=== PATIENT | male | born 1955 | race Caucasian/White ===

== ENCOUNTER 2017-01-20 22:47 | Inpatient (IN) | payer MEDICARE, OTHER ==
[2017-01-20] VITALS (8 sets, daily range): BP systolic 170–232; BP diastolic 92–127; PULSE 92–107; RESP 15–22; TEMP 98.6; O2SAT 99–100
[~2017-01-20] VITALS: Ht 185.4 cm; Wt 111.5 kg
[2017-01-20] MEDS ORDERED: MIDAZOLAM 100 MG/100 ML INJ 100 ML ONE (23:12)
[2017-01-20 23:13] LABS: BLOOD GAS BASE EXCESS 0.4 mmol/L (-2-2); BLOOD GAS CARBOXYHEMOGLOBIN 0.7 % (0-4); BLOOD GAS HCO3 29 mmol/L (22-26); BLOOD GAS METHEMOGLOBIN 0.7 % (0-2); BLOOD GAS O2 HGB SATURATION 95 % (90-100); BLOOD GAS OXYGEN CONTENT 22.2 Vol % (12.0-20.0); BLOOD GAS PCO2 92 mmHg (38-42); BLOOD GAS PO2 105 mmHG (61-120); BLOOD GAS TOTAL HGB 16.6 G/DL (12.0-16.0); CRITICAL VALUE YES; FIO2 100 %; LITER FLOW 15 L/M; OXYGEN DEVICE ABMU; TEMP CORR TO 98.6
[2017-01-20 23:14] LABS: DRAW SITE RT RADIAL; NUMBER OF ARTERIAL PUNCTURES 1; STAT YES; ULNAR PULSE PRESENT
[2017-01-20] MEDS: MIDAZOLAM 100 MG/100 ML INJ 100 ML IV PRN (23:15)
[2017-01-20] MEDS ORDERED: ETOMIDATE 20 MG/10 ML VIAL IVP ONE (23:15)
[2017-01-20] MEDS ORDERED: SUCCINYLCHOLINE CHLORIDE 200 MG/10 ML VIAL IV PUSH ONE (23:15)
[2017-01-20] MEDS ORDERED: SODIUM CHLORIDE 0.9% FLUSH 10 ML FLUSH IVF PRN (23:15)
--- NOTE | 2017-01-20 23:15 | PD ---
HPI Chief Complaint: Seizure Time Seen by Provider: 23:01 Travel History International Travel<30 days: No Contact w/Intl Traveler<30days: No Traveled to known affect area: No History of Present Illness HPI This is a 61-year-old male with a history of CVAs with residual left sided weakness, seizure disorder, encephalopathy, gastroesophageal reflux, hyperlipidemia, type 2 diabetes, obesity, who presents from the alf after he reportedly had a witnessed seizure of greater than 30 minutes. According to the paramedics they were called to the facility of [facility]. Patient reportedly had a seizure that was witnessed at 30 minutes. Report was the gave him 2 mg of IM Ativan. When paramedics arrived he was still seizing and they gave him a further dose of 2 mg of lorazepam. Patient became apneic per paramedics en route. When patient arrived he was being [id number] ventilated. An emergent blood gas was obtained which showed a pH of 7.12 and a PCO2 of 97. Decision was made to intubate the patient emergently at this time. [facility] Social History Tobacco Use: No (unknown) Allergies-Medications (Allergen,Severity, Reaction): Coded Allergies: erythromycin base (Verified Allergy, Unknown, 01/20/17) Reported Meds & Prescriptions Reported Meds & Active Scripts Active Reported Eliquis (Apixaban) 5 Mg Tab 5 Mg PO BID Atorvastatin (Atorvastatin Calcium) 80 Mg Tab 80 Mg PO HS Citalopram (Citalopram Hydrobromide) 40 Mg Tab 40 Mg PO HS B12 (Cyanocobalamin) 1,000 Mcg Tab DAILY Divalproex ER (Divalproex Sodium) 250 Mg Cassidy 750 Mg PO BID Donepezil 10 Mg Tab 10 Mg PO HS Duoneb (Ipratropium-Albuterol Neb) 0.5-2.5 Mg/3 Ml Neb 1 Nebule INH Q8HR NEB Klonopin (Clonazepam) 0.5 Mg Tab 0.25 Mg PO HS Levetiracetam 750 Mg Tab 750 Mg PO BID Metformin (Metformin HCl) 1,000 Mg Tab 1,000 Mg PO BIDPC Miralax Powder (Polyethylene Glycol 3350 Powder) 17 Gm Powd 17 Gm PO DAILY Mix and dissolve one measuring cap-ful (17 grams) in water or juice. Questran (Cholestyramine) 4 Gm/Pkt Powd 8 Gm PO DAILY 1 packet contains 4gm of cholestyramine. Senna-Tabs (Sennosides) 8.6 Mg Tab 17.2 Mg PO DAILY Tylenol (Acetaminophen) 325 Mg Tab 650 Mg PO Q4H PRN Vitamin D3 (Cholecalciferol) 50,000 Unit Cap 50,000 Units PO Q7D Lisinopril 20 Mg Tab 20 Mg PO DAILY Metoprolol Tartrate 100 Mg Tab 100 Mg PO BID Loperamide (Loperamide HCl) 2 Mg Cap 2 Mg PO DIRECTED PRN One capsule after each loose stool. Not to exceed 8 capsules per day. Multi-Vitamin Daily (Multiple Vitamin) 1 Tab Tab 1 Tab PO DAILY Magnesium 400 Mg Tab 400 Mg PO DAILY Review of Systems ROS Limitations: Clinical Condition (unable to obtain review of systems secondary patient's altered mental status.) Except as stated in HPI: all other systems reviewed are Neg Physical Exam Narrative GENERAL: Well-developed well-nourished male in no acute respiratory distress. The patient was being aej-qpycl-yijm ventilated by the paramedics. She had a GCS of 4. SKIN: Focused skin assessment warm/dry. HEAD: Atraumatic. Normocephalic. EYES: Pupils equal bilaterally.. No scleral icterus. No injection or drainage. ENT: No nasal bleeding or discharge. Mucous membranes pink and moist. NECK: Trachea midline. No JVD. CARDIOVASCULAR: Tachycardic with a rate of 104.. No murmur appreciated. RESPIRATORY: No accessory muscle use. Coarse rhonchi in the lower lung rogers. GASTROINTESTINAL: Abdomen soft, non-tender, nondistended. Obese. MUSCULOSKELETAL: No obvious deformities. No clubbing. No cyanosis. No edema. Chronic venous stasis changes bilateral lower extremity is. NEUROLOGICAL: Unconscious. Not following commands. Report was he had residual left sided deficit secondary to old stroke. Data Data Last Documented VS Vital Signs Date Time Temp Pulse Resp B/P (MAP) Pulse Ox O2 Delivery O2 Flow Rate FiO2 01/21/17 01:22 100 100 01/21/17 01:12 110 176/105 (128) Ventilator 01/21/17 01:01 16 01/20/17 23:41 98.6 Orders Orders Chest, Single Ap (01/20/17 23:03) Ecg Monitoring (01/20/17 23:03) Iv Access Insert/Monitor (01/20/17 23:03) Oximetry (01/20/17 23:03) Etomidate Inj (Amidate Inj) (01/20/17 23:15) Succinylcholine Inj (Quelicin Inj) (01/20/17 23:15) Sodium Chloride 0.9% Flush (Ns Flush) (01/20/17 23:15) Electrocardiogram (01/20/17:03) Complete Blood Count With Diff (01/20/17:) Comprehensive Metabolic Panel (01/20/17:) Creatine Kinase (Cpk) (01/20/17:) Ckmb (Isoenzyme) Profile (01/20/17:) Troponin I (01/20/17:) Urinalysis - C+S If Indicated (01/20/17 23:) Ct Brain W/O Iv Contrast(Rout) (01/20/17 23:03) Midazolam 100 Mg/100 Ml Inj (Versed Inj) (01/20/17 23:15) Neurological Rass Scale Q30MX2,Q2HX4,Q4H (01/20/17 23:03) Arterial Blood Gas (Abg) (01/20/17 22:52) Midazolam 100 Mg/100 Ml Inj (Versed Inj) (01/20/17 23:12) Arterial Blood Gas (Abg) (01/20/17 23:51) CKMB (01/20/17 23:20) CKMB% (01/20/17 23:20) Urine Culture (01/20/17 23:30) Blood Culture (01/21/17 01:40) Ceftriaxone Inj (Rocephin Inj) (01/21/17 01:45) Admit Order (Ed Use Only) (01/21/17 01:41) Labs Laboratory Tests Test 01/20/17 22:52 01/20/17 23:20 01/20/17 23:30 01/20/17 23:51 Blood Gas Puncture Site RT RADIAL RT RADIAL Blood Gas Patient Temperature 98.6 98.6 Blood Gas HCO3 29 mmol/L 27 mmol/L Blood Gas Base Excess 0.4 mmol/L 1.1 mmol/L Blood Gas Oxygen Saturation 95 % 94 % Arterial Blood pH 7.12 7.31 Arterial Blood Partial Pressure CO2 92 mmHg 55 mmHg Arterial Blood Partial Pressure O2 105 mmHG 84 mmHG Arterial Blood Oxygen Content 22.2 Vol % 22.3 Vol % Arterial Blood Carboxyhemoglobin 0.7 % 1.1 % Arterial Blood Methemoglobin 0.7 % 0.7 % Blood Gas Hemoglobin 16.6 G/DL 16.8 G/DL Oxygen Delivery Device ABMU VENTILATOR Blood Gas Liter Flow 15 L/M Blood Gas Inspired Oxygen 100 % 100 % White Blood Count 14.5 TH/MM3 Red Blood Count 5.08 MIL/MM3 Hemoglobin 16.1 GM/DL Hematocrit 48.1 % Mean Corpuscular Volume 94.7 FL Mean Corpuscular Hemoglobin 31.7 PG Mean Corpuscular Hemoglobin Concent 33.4 % Red Cell Distribution Width 14.6 % Platelet Count 173 TH/MM3 Mean Platelet Volume 8.2 FL Neutrophils (%) (Auto) 76.7 % Lymphocytes (%) (Auto) 17.3 % Monocytes (%) (Auto) 5.1 % Eosinophils (%) (Auto) 0.5 % Basophils (%) (Auto) 0.4 % Neutrophils # (Auto) 11.1 TH/MM3 Lymphocytes # (Auto) 2.5 TH/MM3 Monocytes # (Auto) 0.7 TH/MM3 Eosinophils # (Auto) 0.1 TH/MM3 Basophils # (Auto) 0.1 TH/MM3 CBC Comment DIFF FINAL Differential Comment Blood Urea Nitrogen 18 MG/DL Creatinine 1.10 MG/DL Random Glucose 172 MG/DL Total Protein 6.5 GM/DL Albumin 3.4 GM/DL Calcium Level 8.8 MG/DL Alkaline Phosphatase 61 U/L Aspartate Amino Transf (AST/SGOT) 26 U/L Alanine Aminotransferase (ALT/SGPT) 36 U/L Total Bilirubin 1.0 MG/DL Sodium Level 145 MEQ/L Potassium Level 3.8 MEQ/L Chloride Level 108 MEQ/L Carbon Dioxide Level 27.1 MEQ/L Anion Gap 10 MEQ/L Estimat Glomerular Filtration Rate 58 ML/MIN Total Creatine Kinase 171 U/L Creatine Kinase MB 2.4 NG/ML Troponin I 0.05 NG/ML Urine Color YELLOW Urine Turbidity CLOUDY Urine pH 6.0 Urine Specific [place] 1.029 Urine Protein 300 mg/dL Urine Glucose (UA) TRACE mg/dL Urine Ketones TRACE mg/dL Urine Occult Blood MOD Urine Nitrite NEG Urine Bilirubin NEG Urine Urobilinogen 2.0 MG/DL Urine Leukocyte Esterase NEG Urine RBC 26 /hpf Urine WBC 21 /hpf Urine Squamous Epithelial Cells 3 /hpf Urine Amorphous Sediment OCC Urine Bacteria MOD /hpf Urine Hyaline Casts 6 /lpf Urine Mucus FEW /lpf Microscopic Urinalysis Comment CULTURE INDICATED Blood Gas Ventilator Setting [id number]/16/550/[id number] [facility] Medical Decision Making Medical Screen Exam Complete: Yes Emergency Medical Condition: Yes Differential Diagnosis Intractable seizure versus intracranial hemorrhage versus metabolic arrangement versus infectious process. Narrative Course This is a 61 her male with a history of dementia, seizure disorder, previous stroke affecting his left side, hypertension, dyslipidemia, who presents here after having a seizure while at the nursing facility. The patient apparently had a greater than 30 minute seizure. Apparently at the alf, they called 911 after they had given him IM Ativan and he continued to seize. When paramedics arrived, they placed an IVP and him and gave him 2 further milligrams of Ativan. When the patient arrived here he was apneic and being bag -valve-mask ventilated. His pH on blood gas was 7.12. His PCO2 was in the 90s. At that time the decision was made to intubate the patient. He was intubated successfully with no complications. Patient was noted to have a UTI. He's been given Rocephin, 1 g I V times one dose. He's had cultures for urine and blood obtained. CT scan shows no evidence of acute abnormality. He' ll be admitted to the intensive care unit. The case is discussed with Dr. Soria , who will admit him to his service. Critical Care Narrative Aggregate critical care time was 45 minutes. Time to perform other separately billable procedures was not included in the critical care time. My time did not include minutes spent treating any other patients simultaneously or on activities that did not directly contribute to the patient's treatment. The services I provided to this patient were to treat and/or prevent clinically significant deterioration that could result in: I provided critical care services requiring my management, as noted below: Chart data review, documentation time, medication orders and management, vital sign assessments/reviewing monitor data, ordering and reviewing lab tests, ordering and interpreting/reviewing x-rays and diagnostic studies, care of the patient and discussion of the patient with the admitting physicians. Procedures Procedure Narrative Intubated emergently: INTUBATION: The patient was put in optimal position for the procedure. Rapid sequence intubation was initiated by me using 20 milligrams of etomidate IV and 100 milligrams of succinylcholine IV. The patient was intubated with a 0.0 cuffed endotracheal tube. Tube placement was confirmed by visualization of the tube and balloon passing through the cords, capnometry and subsequent chest x- ray. Breath sounds were equal and well aerated bilaterally postintubation. No breath sounds over stomach. Patient tolerated procedure well. Diagnosis Primary Impression: Prolonged seizure Additional Impressions: Hypercarbia UTI (urinary tract infection) Hypertension Qualified Codes: I10 - Essential (primary) hypertension Obstructive sleep apnea Dementia Qualified Codes: F03.90 - Unspecified dementia without behavioral disturbance Admitting Information Admitting Physician Requests: Admit Juaquin Borja MD Jan 20, 2017 23:15
[2017-01-20 23:41] LABS: AUTOMATED NEUTROPHIL # 11.1 TH/MM3 (1.8-7.7); BASOPHIL # 0.1 TH/MM3 (0-0.2); BASOPHIL % 0.4 % (0.0-2.0); EOSINOPHIL # 0.1 TH/MM3 (0-0.4); EOSINOPHIL % 0.5 % (0.0-4.0); HEMATOCRIT 48.1 % (39.0-51.0); HEMO FLAGS DIFF FINAL; LYMPH % 17.3 % (9.0-44.0); LYMPHOCYTE # 2.5 TH/MM3 (1.0-4.8); MEAN CELL VOLUME 94.7 FL (80.0-100.0); MEAN CORPUSCULAR HEMOGLOBIN 31.7 PG (27.0-34.0); MEAN CORPUSCULAR HGB CONC 33.4 % (32.0-36.0); MONO % 5.1 % (0.0-8.0); NEUT % 76.7 % (16.0-70.0); PLATELET COUNT 173 TH/MM3 (150-450); RED BLOOD COUNT 5.08 MIL/MM3 (4.50-5.90); RED CELL DISTRIBUTION WIDTH 14.6 % (11.6-17.2); WHITE BLOOD COUNT 14.5 TH/MM3 (4.0-11.0)
--- NOTE | 2017-01-20 23:44 | RADRPT ---
EXAM DATE/TIME: 01/20/2017 23:29 [facility] COMPARISON: No previous studies available for comparison. INDICATIONS : Short of breath. MEDICAL HISTORY : None. SURGICAL HISTORY : CABG. ENCOUNTER: Initial ACUITY: 1 day PAIN SCORE: 0/10 LOCATION: Bilateral chest FINDINGS: A single view of the chest demonstrates the lungs to be symmetrically aerated without evidence of mas s, infiltrate or effusion. The endotracheal tube and nasogastric are both in good position. Numerous sternal wires. The cardiomediastinal contours are unremarkable. Osseous structures are intact. CONCLUSION: Endotracheal tube and nasogastric are both in good position. Lungs are clear. Bill Carter MD on January 20, 2017 at 23:42 Board Certified Radiologist. This report was verified electronically.
[2017-01-20 23:59] LABS: BLOOD GAS BASE EXCESS 1.1 mmol/L (-2-2); BLOOD GAS CARBOXYHEMOGLOBIN 1.1 % (0-4); BLOOD GAS HCO3 27 mmol/L (22-26); BLOOD GAS METHEMOGLOBIN 0.7 % (0-2); BLOOD GAS O2 HGB SATURATION 94 % (90-100); BLOOD GAS OXYGEN CONTENT 22.3 Vol % (12.0-20.0); BLOOD GAS PCO2 55 mmHg (38-42); BLOOD GAS PO2 84 mmHG (61-120); BLOOD GAS TOTAL HGB 16.8 G/DL (12.0-16.0); TEMP CORR TO 98.6
[2017-01-21] VITALS (25 sets, daily range): BP systolic 94–210; BP diastolic 56–117; PULSE 76–114; RESP 15–24; TEMP 98.4–101.6; O2SAT 99–100
[2017-01-21 00:01] LABS: CRITICAL VALUE YES; DRAW SITE RT RADIAL; FIO2 100 %; NUMBER OF ARTERIAL PUNCTURES 1; OXYGEN DEVICE VENTILATOR; STAT YES; ULNAR PULSE PRESENT; VENT SETTINGS AC/16/550/PEEP5
[2017-01-21 00:10] LABS: ALT (GPT) 36 U/L (12-78); ANION GAP 10 MEQ/L (5-15); AST (GOT) 26 U/L (15-37); BICARBONATE 27.1 MEQ/L (21.0-32.0); BLOOD UREA NITROGEN 18 MG/DL (7-18); CHLORIDE 108 MEQ/L (98-107); GLOMERULAR FILTRATION RATE 58 ML/MIN (>89); POTASSIUM 3.8 MEQ/L (3.5-5.1); SODIUM (NA) 145 MEQ/L (136-145)
[2017-01-21 00:14] LABS: ALKALINE PHOSPHATASE 61 U/L (45-117); CREATINE KINASE 171 U/L (39-308)
[2017-01-21 00:15] LABS: BACTERIA, URINE MOD /hpf; BLOOD, URINE MOD (NEG); GLUCOSE,URINE TRACE mg/dL (NEG); HYALINE CAST, URINE 6 /lpf (RARE); KETONE, URINE TRACE mg/dL (NEG); MUCUS URINE FEW /lpf (OCC); NITRITE,URINE NEG (NEG); SQUAMOUS EPITHELIAL CELL URINE 3 /hpf (0-5); URINE COLOR YELLOW (YELLW/STRAW)
[2017-01-21 00:17] LABS: COMMENT (UR) CULTURE INDICATED; CULTURE IF INDICATED CULTURE INDICATED
[2017-01-21 00:27] LABS: CKMB 2.4 NG/ML (0.5-3.6)
[2017-01-21] MEDS ORDERED: METF1000 PO (00:56)
[2017-01-21] MEDS ORDERED: QUES4POW PO (00:56)
[2017-01-21] MEDS ORDERED: METO100T PO (00:56)
[2017-01-21] MEDS ORDERED: DONE10TA7 PO (00:56)
[2017-01-21] MEDS ORDERED: CLON.5 PO (00:56)
[2017-01-21] MEDS ORDERED: IPRASOL INH (00:56)
[2017-01-21] MEDS ORDERED: MAGN400T3 PO (00:56)
[2017-01-21] MEDS ORDERED: SENN8.6T36 PO (00:56)
[2017-01-21] MEDS ORDERED: MIRA3350 PO (00:56)
[2017-01-21] MEDS ORDERED: CYAN1TAB24 (00:56)
[2017-01-21] MEDS ORDERED: LISI-515 PO (00:56)
[2017-01-21] MEDS ORDERED: DIVA250T3 PO (00:56)
[2017-01-21] MEDS ORDERED: TYLE325T PO (00:56)
[2017-01-21] MEDS ORDERED: CHOL1CAP34 PO (00:56)
[2017-01-21] MEDS ORDERED: MULT-65 PO (00:56)
[2017-01-21] MEDS ORDERED: LEVE750T8 PO (00:56)
[2017-01-21] MEDS ORDERED: LOPE2CAP PO (00:56)
[2017-01-21] MEDS ORDERED: APIX5TAB PO (00:59)
[2017-01-21] MEDS ORDERED: CITA40TA4 PO (00:59)
[2017-01-21] MEDS ORDERED: ATOR80TA45 PO (00:59)
--- NOTE | 2017-01-21 01:34 | RADRPT ---
EXAM DATE/TIME: 01/21/2017 01:10 [facility] COMPARISON: No previous studies available for comparison. INDICATIONS : Altered mental status. Possible seizure. RADIATION DOSE: 56.35 CTDIvol (mGy) MEDICAL HISTORY : Non-responsive. SURGICAL HISTORY : Non-responsive. ENCOUNTER: Initial ACUITY: 1 day PAIN SCALE: Non-responsive LOCATION: cranial TECHNIQUE: Multiple contiguous axial images were obtained of the head. Using automated exposure control and adj ustment of the mA and/or kV according to patient size, radiation dose was kept as low as reasonably a chievable to obtain optimal diagnostic quality images. DICOM format image data is available electro nically for review and comparison. FINDINGS: CEREBRUM: There is a mature area of encephalomalacia involving the centrum semiovale region on the right with c ommunication to the ventricular system which is dilated. No evidence of midline shift, mass lesion, hemorrhage or acute infarction. No extra-axial fluid collections are seen. 5 mm hypodensity within t he right thalamus age-indeterminate lacunar infarct (image 14). POSTERIOR FOSSA: The cerebellum and brainstem are intact. The 4th ventricle is midline. The cerebellopontine angle i s unremarkable. EXTRACRANIAL: The visualized portion of the orbits is intact. SKULL: The calvaria is intact. No evidence of skull fracture. CONCLUSION: Old stroke in the centrum semiovale region on the right. Questionable small probably chronic stroke i n the right thalamus. No acute hemorrhage. Bill Carter MD on January 21, 2017 at 1:29 Board Certified Radiologist. This report was verified electronically.
[2017-01-21] MEDS ORDERED: cefTRIAXone INJ 1,000 MG in SODIUM CHLORIDE 0.9% INJ 100 ML IV ONE (01:45)
--- NOTE | 2017-01-21 02:12 | HHI.HP ---
[facility] Service Critical Care Medicine Primary Care Physician Unknown Admission Diagnosis Prolonged seizure, hypercarbia, uti, Diagnosis: (1) Acute respiratory failure Diagnosis: Principal (2) Constipation Diagnosis: Principal (3) Dementia Diagnosis: Secondary (4) Obstructive sleep apnea Diagnosis: Principal (5) Dyslipidemia Diagnosis: Secondary (6) Hx of thrombosis of lower extremity Diagnosis: Secondary (7) Cystitis Diagnosis: Secondary (8) Hyperglycemia Diagnosis: Secondary (9) Leukocytosis Diagnosis: Principal (10) Hypertension Diagnosis: Secondary (11) BMI 37.0-37.9, adult Diagnosis: Principal (12) Depression Diagnosis: Secondary (13) Chronic anticoagulation Diagnosis: Principal (14) Seizure disorder Diagnosis: Principal (15) SIRS (systemic inflammatory response syndrome) Diagnosis: Principal Chief Complaint: Patient was found seizing greater than 30 minutes the LTAC, located within [facility] Travel History International Travel<30 Days: No Contact w/Intl Traveler <30 Da: No Traveled to Known Affected Are: No Sepsis Criteria SIRS Criteria (2 or more): WBC > 83204, < 4000 or > 10% bands History of Present Illness 61-year-old male. Date of admission 01/21/2017. 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 [address] Borja, they were called to the facility of [facility]. Patient reportedly had a seizure that was witnessed at 30 minutes. Report was the gave him 2 mg of IM lorazepam. When paramedics arrived he was still seizing and they gave him a further dose of 2 mg of lorazepam. Patient became apneic per paramedics en route. When patient arrived he was being [id number] ventilated. An emergent blood gas was obtained which showed a pH of 7.12 and a PCO2 of 97. Decision was made to intubate the patient emergently at [facility] after receiving 20 g, refill 100 mg succinylcholine Laboratories revealed elevated white blood cell count 14,000. Glucose of 173. CT brain revealed old right centrum semiovale right thalamic CVA. Chest x-ray revealed no acute findings. Patient is placed on midazolam drip currently at 10 mg an hour. Patient has a gag. Patient's eyes are currently moving horizontally with a rightward gaze preference. Minimal withdrawal to pain. Review of Systems ROS Limitations: Intubated Past Family Social History Allergies: Coded Allergies: erythromycin base (Verified Allergy, Unknown, 01/20/17) Past Medical History Seizure disorder NOS Elevated BMI Depression Chronic Apixaban use Hypertension Dyslipidemia Dementia obstructive sleep apnea requiring CPAP History of lower extremity arterial thrombus Chronic constipation Past Surgical History Not documented. Unknown Reported Medications Citalopram 40 mg by mouth daily Clonazepam 0.25 mg by mouth at bedtime Apixaban 5 mg by mouth twice a day Metformin 1000 mg by mouth twice a day Vitamin B12 1000 mcg by mouth daily Lisinopril 20 mg by mouth twice a day Metoprolol 100 mg by mouth twice a day Levetiracetam 750 mg by mouth every 12 hours Divalproex 750 mg by mouth twice a day Atorvastatin 80 mg by mouth daily Donezepil 10 mg by mouth daily Albuterol/ipratropium aerosols every 8 hours Magnesium oxide 4 mg by mouth daily Questran 8 g by mouth daily Active Ordered Medications Reviewed in EMR Family History Mother and father is unknown/not defined. Unable to contact Ashley/healthcare proxy Social History Unknown if any alcohol tobacco or IV drug use Physical Exam Vital Signs Vital Signs Date Time Temp Pulse Resp B/P (MAP) Pulse Ox O2 Delivery O2 Flow Rate FiO2 01/21/17 01:22 100 100 01/21/17 01:12 100 100 01/21/17 01:12 110 176/105 (128) 100 Ventilator 100 01/21/17 01:01 96 16 210/117 (148) 100 Ventilator 100 01/20/17 23:48 92 16 178/94 (122) 100 Ventilator 100 01/20/17 23:46 100 01/20/17 23:41 98.6 106 17 232/127 (162) 100 Ventilator 100 01/20/17 23:35 93 17 185/102 (129) 100 Ventilator 100 01/20/17 23:24 92 17 170/97 (121) 100 Ventilator 100 01/20/17 23:07 96 17 204/113 (143) 100 Ventilator 100 01/20/17 23:05 100 100 01/20/17 23:02 99 15 189/96 (127) 100 Ventilator 01/20/17 22:59 100 01/20/17 22:49 107 22 179/92 (121) 99 Physical Exam GENERAL: This is a 61-year-old male, critically ill currently orotracheally intubated SKIN: Warm and dry. Chronic venous stasis bilateral lower extremities HEAD: Atraumatic. Normocephalic. EYES: Pupils equal and round. No scleral icterus. No injection or drainage. ENT: No nasal bleeding or discharge. Mucous membranes pink and moist. NECK: Trachea midline. No JVD. CARDIOVASCULAR: Regular rate and rhythm. S1, S2. No S4. Without murmur. Midsternal healed scar. RESPIRATORY: Diminished breath sounds throughout. Positive coarse rhonchi appreciated anteriorly posteriorly. Positive and extremity wheezes GASTROINTESTINAL: Abdomen obese, soft. Hypoactive bowel sounds are appreciated. MUSCULOSKELETAL: Extremities with 1+ bilateral lower extremity edema.. NEUROLOGICAL: Currently biting on 2. Pupils are about 2 mm bilaterally and minimally reactive. Patient eye gaze horizontally with some nystagmus. Positive blink. Positive gag. Very difficult to elicit withdrawal to noxious stimuli bilateral upper and lower extremities. Laboratory Laboratory Tests Test 01/20/17 22:52 01/20/17 23:20 01/20/17 23:30 01/20/17 23:51 Blood Gas Puncture Site RT RADIAL RT RADIAL Blood Gas Patient Temperature 98.6 98.6 Blood Gas HCO3 29 27 Blood Gas Base Excess 0.4 1.1 Blood Gas Oxygen Saturation 95 94 Arterial Blood pH 7.12 7.31 Arterial Blood Partial Pressure CO2 92 55 Arterial Blood Partial Pressure O2 105 84 Arterial Blood Oxygen Content 22.2 22.3 Arterial Blood Carboxyhemoglobin 0.7 1.1 Arterial Blood Methemoglobin 0.7 0.7 Blood Gas Hemoglobin 16.6 16.8 Oxygen Delivery Device ABMU VENTILATOR Blood Gas Liter Flow 15 Blood Gas Inspired Oxygen 100 100 White Blood Count 14.5 Red Blood Count 5.08 Hemoglobin 16.1 Hematocrit 48.1 Mean Corpuscular Volume 94.7 Mean Corpuscular Hemoglobin 31.7 Mean Corpuscular Hemoglobin Concent 33.4 Red Cell Distribution Width 14.6 Platelet Count 173 Mean Platelet Volume 8.2 Neutrophils (%) (Auto) 76.7 Lymphocytes (%) (Auto) 17.3 Monocytes (%) (Auto) 5.1 Eosinophils (%) (Auto) 0.5 Basophils (%) (Auto) 0.4 Neutrophils # (Auto) 11.1 Lymphocytes # (Auto) 2.5 Monocytes # (Auto) 0.7 Eosinophils # (Auto) 0.1 Basophils # (Auto) 0.1 CBC Comment DIFF FINAL Differential Comment Blood Urea Nitrogen 18 Creatinine 1.10 Random Glucose 172 Total Protein 6.5 Albumin 3.4 Calcium Level 8.8 Alkaline Phosphatase 61 Aspartate Amino Transf (AST/SGOT) 26 Alanine Aminotransferase (ALT/SGPT) 36 Total Bilirubin 1.0 Sodium Level 145 Potassium Level 3.8 Chloride Level 108 Carbon Dioxide Level 27.1 Anion Gap 10 Estimat Glomerular Filtration Rate 58 Total Creatine Kinase 171 Creatine Kinase MB 2.4 Troponin I 0.05 Urine Color YELLOW Urine Turbidity CLOUDY Urine pH 6.0 Urine Specific [place] 1.029 Urine Protein 300 Urine Glucose (UA) TRACE Urine Ketones TRACE Urine Occult Blood MOD Urine Nitrite NEG Urine Bilirubin NEG Urine Urobilinogen 2.0 Urine Leukocyte Esterase NEG Urine RBC 26 Urine WBC 21 Urine Squamous Epithelial Cells 3 Urine Amorphous Sediment OCC Urine Bacteria MOD Urine Hyaline Casts 6 Urine Mucus FEW Microscopic Urinalysis Comment CULTURE INDICATED Blood Gas Ventilator Setting AC/16/550/PEEP5 Date/Time Source Procedure Growth Status 01/20/17 23:30 Urine Clean Catch Urine Culture Pending Received Result Diagram: 01/20/17231901/20/172319 Imaging Last Impressions Head CT 01/20/172302 Signed Impressions: Service Date/Time: Saturday, January 21, 2017 01:10 - CONCLUSION: Old stroke in the centrum semiovale region on the right. Questionable small probably chronic stroke in the right thalamus. No acute hemorrhage. Bill Carter MD Chest X-Ray 01/20/172302 Signed Impressions: Service Date/Time: Friday, January 20, 2017 23:29 - CONCLUSION: Endotracheal tube and nasogastric are both in good position. Lungs are clear. Bill Carter MD Caprini VTE Risk Assessment Caprini VTE Risk Assessment: Mod/High Risk (score >= 2) VTE Pharm Contraindication: Intracranial lesions Caprini Risk Assessment Model Point Value = 1 Point Value = 2 Point Value = 3 Point Value = 5 Age 41-60 Minor surgery BMI > 25 kg/m2 Swollen legs Varicose veins or History of unexplained or recurrent spontaneous Oral contraceptives or hormone replacement Sepsis (< 1 month) Serious lung disease, including pneumonia (< 1 month) Abnormal pulmonary function Acute myocardial infarction Congestive heart failure (< 1 month) History of inflammatory bowel disease Medical patient at bed rest Age 61-74 Arthroscopic surgery Major open surgery (> 45 min) Laparoscopic surgery (> 45 min) Malignancy Confined to bed (> 72 hours) Immobilizing plaster cast Central venous access Age >= 75 History of VTE Family history of VTE Factor V Leiden Prothrombin [id number] Lupus anticoagulant Anticardiolipin antibodies Elevated serum homocysteine Heparin-induced thrombocytopenia Other congenital or acquired thrombophilia Stroke (< 1 month) Elective arthroplasty Hip, pelvis, or leg fracture Acute spinal cord injury (< 1 month) Prophylaxis Regimen Total Risk Factor Score Risk Level Prophylaxis Regimen 0-1 Low Early ambulation 2 Moderate Order ONE of the following: *Sequential Compression Device (SCD) *Heparin 5000 units SQ BID 3-4 Higher Order ONE of the following medications: *Heparin 5000 units SQ TID *Enoxaparin/Lovenox 40 mg SQ daily (WT < 150 kg, CrCl > 30 mL/min) *Enoxaparin/Lovenox 30 mg SQ daily (WT < 150 kg, CrCl > 10-29 mL/min) *Enoxaparin/Lovenox 30 mg SQ BID (WT < 150 kg, CrCl > 30 mL/min) AND/OR *Sequential Compression Device (SCD) 5 or more Highest Order ONE of the following medications: *Heparin 5000 units SQ TID (Preferred with Epidurals) *Enoxaparin/Lovenox 40 mg SQ daily (WT < 150 kg, CrCl > 30 mL/min) *Enoxaparin/Lovenox 30 mg SQ daily (WT < 150 kg, CrCl > 10-29 mL/min) *Enoxaparin/Lovenox 30 mg SQ BID (WT < 150 kg, CrCl > 30 mL/min) AND *Sequential Compression Device (SCD) Assessment and Plan Assessment and Plan Neuro/Psych: Seizure disorder Depression History of encephalopathy Prior history of CVA right centrum semiovale, right thalamus Patient is currently midazolam, propofol and fentanyl drips for sedation/ analgesia while intubated Goal of RASS -[address] brain 01/20 revealed remote right centrum semiovale and right thalamic CVA MRI brain ordered EEG ordered Carotid Dopplers ordered Patient at nursing was on levetiracetam 750 mg twice a day and divalproex 750 mg twice a day. We'll place on levetiracetam 1000 mg IV twice a day and divalproex 500 mg IV every 8 hours. Levetiracetam and valproic acid levels pending TSH screening urine tox screen, blood cultures 2 are pending Currently holding citalopram 40 mg daily and Klonopin 0.25 mg at night Currently holding benazepril 10 mg daily Currently vitamin B12 1000 g by mouth daily CV: Hypertension Dyslipidemia Patient is currently normal saline at 84 cc an hour. Resume metoprolol 100 milligrams by mouth twice a day. Currently holding lisinopril 20 mg by mouth twice a day Currently holding atorvastatin 80 mg by mouth at bedtime for dyslipidemia Resp: Acute respiratory failure History of MICHELLE on BiPAP 01/10 at night PRVC 18/600///50 Ventilator bundle Albuterol/ipratropium aerosols every 4 hours with albuterol aerosols every 2 hours as needed for dyspnea Chest x-ray admission revealed no acute pulmonary cardiac findings GI: Morbid obesity Constipation Weight loss will be encouraged. Lansoprazole for GI prophylaxis Docusate sodium/senna twice a day for bowel regimen Holding Questran 8 g daily : Dexter catheter has been placed for accurate I's and O's in a critically ill patient Endo: Diurese mellitus Hyperglycemia Holding metformin 1000 mg by mouth twice a day Sliding-scale insulin with Novulin R with Accu-Cheks every 4 hours to maintain euglycemia/low regimen Renal: Creatinine currently within normal limits Monitor urine output Accurate I's and O's Heme: Leukocytosis Apixaban use History of lower extremity arterial thrombus question chace Currently holding Apixaban until after MRI brain. Likely resume at that time Follow CBC and coags in a.m. Does not meet transfusion thresholds at this time ID: Cystitis Currently on ceftriaxone 1 g IV daily Follow-up on blood cultures/urine culture FEN: Replace electrolytes as clinically indicated MSK: PT evaluate and treat Access - Utilize peripheral IV. Central line if indicated Prophylaxis - GI - lansoprazole - DVT -SCDs/holding pharmacological prophylaxis until after brain MRI performed Critical Care: The total critical care time was 45 minutes. Time to perform other separately billable procedures was not included in the critical care time. Code Status Full code Discussed Condition With Dr. Borja. Care plan discussed and all questions answered. Problem Qualifiers (1) Acute respiratory failure: Qualified Codes: J96.01 - Acute respiratory failure with hypoxia; J96.02 - Acute respiratory failure with hypercapnia (2) Constipation: Qualified Codes: K59.00 - Constipation, unspecified (3) Dementia: Qualified Codes: F03.90 - Unspecified dementia without behavioral disturbance (4) Leukocytosis: Qualified Codes: D72.829 - Elevated white blood cell count, unspecified (5) Hypertension: Qualified Codes: I10 - Essential (primary) hypertension (6) Depression: Qualified Codes: F32.9 - Major depressive disorder, single episode, unspecified Mayco Soria MD Jan 21, 2017 02:12
[2017-01-21] MEDS ORDERED: SENNOSIDES 8.6 MG TAB PO PRN (02:30)
[2017-01-21] MEDS ORDERED: CHLORHEXIDINE GLUCONATE 2 % 1 PACK (2 CLOTHS) TOP PRN (02:30)
[2017-01-21] MEDS ORDERED: SODIUM CHLORIDE 0.9% FLUSH 10 ML FLUSH IV FLUSH PRN (02:30)
[2017-01-21] MEDS ORDERED: ONDANSETRON HCL 4 MG/2 ML VIAL IV PUSH PRN (02:30)
[2017-01-21] MEDS ORDERED: PROPOFOL 1000 MG/100 ML INJ 100 ML IV PRN ×2 (02:30→14:45)
[2017-01-21] MEDS ORDERED: GLUCAGON 1 MG/ML VIAL IM PRN (02:30)
[2017-01-21] MEDS ORDERED: GLUCAGON 1 MG/ML VIAL OTHER PRN (02:30)
[2017-01-21] MEDS ORDERED: fentaNYL DRIP 250 ML IV PRN (02:30)
[2017-01-21] MEDS ORDERED: MAGNESIUM HYDROXIDE SUSP 30 ML CUP PO PRN (02:30)
[2017-01-21] MEDS ORDERED: RESP: ALBUTEROL 2.5 MG/3 ML NEB (PRN) INH (02:30)
[2017-01-21] MEDS ORDERED: DEXTROSE 50% IN WATER 50 ML VIAL(D50) IV PUSH PRN (02:30)
[2017-01-21] MEDS ORDERED: BISACODYL 10 MG SUPP RECTAL PRN (02:30)
[2017-01-21] MEDS ORDERED: MISCELLANEOUS NURSING INFORMATION XX SCH (02:30)
[2017-01-21] MEDS ORDERED: ACETAMINOPHEN 325 MG TAB PO PRN (02:30)
[2017-01-21] MEDS ORDERED: LABETALOL HCL 100 MG/20 ML VIAL IV PUSH PRN (02:30)
[2017-01-21] MEDS ORDERED: LACTULOSE SYRUP 20 GM/30 ML CUP PO PRN (02:30)
[2017-01-21] MEDS ORDERED: levETIRAcetam 1000 MG INJ 100 ML IV ONE (03:00)
[2017-01-21 03:20] LABS: APTT (PATIENT) 23.8 SEC (24.3-30.1); INTERNATIONAL NORMALIZED RATIO 1.1 RATIO; PROTHROMBIN TIME - PATIENT 11.8 SEC (9.8-11.6)
[2017-01-21] MEDS: RESP: ALBUTEROL 2.5 MG/IPRATROPIUM 0.5 MG NEB (SCH) INH ×4 (03:21→19:30)
[2017-01-21] MEDS: SODIUM CHLOR 0.9% 1000 ML INJ 1,000 ML IV SCH ×2 (03:41→17:40)
[2017-01-21] MEDS: CHLORHEXIDINE GLUCONATE 2 % 1 PACK (2 CLOTHS) TOP SCH (04:00)
[2017-01-21] MEDS: INSULIN NovoLIN REGULAR SUPPLEMENTAL SCALE SQ SCH ×5 (04:00→20:00)
[2017-01-21 04:05] LABS: HDL CHOLESTEROL 72.9 MG/DL (40.0-60.0); MAGNESIUM 1.4 MG/DL (1.5-2.5)
[2017-01-21] MEDS ORDERED: SODIUM CHLOR 0.45% 1000 ML INJ 1,000 ML IV ONE (04:15)
[2017-01-21] MEDS ORDERED: ACETAMINOPHEN 1000 MG/100 ML 100 ML IV ONE (04:30)
[2017-01-21 05:04] LABS: BLOOD GAS BASE EXCESS -1.1 mmol/L (-2-2); BLOOD GAS CARBOXYHEMOGLOBIN 0.8 % (0-4); BLOOD GAS HCO3 23 mmol/L (22-26); BLOOD GAS METHEMOGLOBIN 1.3 % (0-2); BLOOD GAS O2 HGB SATURATION 97 % (90-100); BLOOD GAS OXYGEN CONTENT 22.5 Vol % (12.0-20.0); BLOOD GAS PCO2 36 mmHg (38-42); BLOOD GAS PO2 226 mmHg (61-120); BLOOD GAS TOTAL HGB 16.2 G/DL (12.0-16.0); CRITICAL VALUE NO; DRAW SITE RT RADIAL; FIO2 60 %; NUMBER OF ARTERIAL PUNCTURES 1; OXYGEN DEVICE VENTILATOR; STAT NO; TEMP CORR TO 98.6; ULNAR PULSE PRESENT
[2017-01-21] MEDS ORDERED: VALPROATE INJ 500 MG in SODIUM CHLORIDE 0.9% INJ 100 ML IV SCH (06:00)
[2017-01-21] MEDS ORDERED: MAGNESIUM SULFATE INJ 4 GM in SODIUM CHLORIDE 0.9% INJ 92 ML IV PRN (07:15)
[2017-01-21] MEDS ORDERED: POTASSIUM CHLOR 40 MEQ PREMIX 100 ML IV PRN ×2 (07:15)
[2017-01-21] MEDS ORDERED: POTASSIUM CHLOR 20 MEQ PREMIX 100 ML IV PRN (07:15)
[2017-01-21] MEDS ORDERED: POTASSIUM PHOSPHATE INJ 30 MMOL in SODIUM CHLOR 0.9% 250 ML INJ 250 ML IV PRN (07:15)
[2017-01-21] MEDS ORDERED: MAGNESIUM SULFATE INJ 2 GM in SODIUM CHLORIDE 0.9% INJ 96 ML IV PRN (07:15)
[2017-01-21] MEDS ORDERED: MAGNESIUM OXIDE 400 MG TAB PO PRN (07:15)
[2017-01-21] MEDS ORDERED: POTASSIUM PHOSPHATE MONOBASIC 500 MG TAB PO PRN (07:15)
[2017-01-21] MEDS ORDERED: POTASSIUM PHOSPHATE MONOBASIC 500 MG TAB PO/TUBE PRN (07:15)
[2017-01-21] MEDS ORDERED: SODIUM PHOSPHATE INJ 30 MMOL in SODIUM CHLOR 0.9% 250 ML INJ 240 ML IV PRN (07:15)
[2017-01-21] MEDS ORDERED: POTASSIUM CHLORIDE 25 MEQ EFFERVESCENT TAB PO PRN (07:15)
--- NOTE | 2017-01-21 08:26 | RADRPT ---
EXAM DATE/TIME: 01/21/2017 07:48 [place] COMPARISON: No previous studies available for comparison. INDICATIONS : Cerebrovascular accident. MEDICAL HISTORY : Dementia. Hypercholesterolemia. Hypertension. Toxic encephalopathy. Left sided hemiplegia. Seizures. Embolism and thrombosis of lower extremity. Sleep apnea. Diabetes. GERD. SURGICAL HISTORY : Unable to obtain. ENCOUNTER: Initial ACUITY: 1 day PAIN SCORE: Nonresponsive. LOCATION: Bilateral neck PEAK SYSTOLIC VELOCITIES (cm/sec): ICA/CCA RATIO: Right: 1.0 Left: 1.1 ICA: Right: 124 Left: 111 CCA: Right: 121 Left: 105 ECA: Right: 117 Left: 139 VERTEBRAL: Right: 48 antegrade Left: 54 antegrade Elevated flow velocities and ICA/CCA ratios have been found to correlate with increased degrees of vessel stenosis, calculated as percentage of diameter relative to a normal segment of distal ICA/CCA FINDINGS: RIGHT CAROTID: No significant stenosis is visualized. The waveforms are within normal limits. LEFT CAROTID: No significant stenosis is visualized. The waveforms are within normal limits. VERTEBRAL ARTERIES: Antegrade flow is seen in both vertebral arteries. MISCELLANEOUS: None. CONCLUSION: 1. Minimal atherosclerotic plaque without a hemodynamically significant stenosis involving either car otid artery. 2. Antegrade flow involving both vertebral arteries. Rafa Arnold Jr., MD on January 21, 2017 at 8:22 Board Certified Radiologist. This report was verified electronically.
[2017-01-21] MEDS: DOCUSATE SODIUM 50 MG/SENNA 8.6 MG TAB PO SCH ×2 (08:30→21:37)
[2017-01-21] MEDS: METOPROLOL TARTRATE 100 MG TAB PO SCH ×2 (08:30→21:37)
[2017-01-21] MEDS: LANSOPRAZOLE SOLUTAB 30 MG TAB G-TUBE SCH (08:30)
[2017-01-21] MEDS: levETIRAcetam 1000 MG INJ 100 ML IV SCH ×2 (08:30→21:39)
[2017-01-21] MEDS: CHLORHEXIDINE 0.12% (ORAL KIT) 15 ML CUP MT SCH ×2 (08:31→21:38)
[2017-01-21] MEDS: ARTIFICIAL TEARS OPTH SOLN 15 ML BTL EACH EYE SCH ×3 (08:32→18:00)
[2017-01-21] MEDS: SODIUM CHLORIDE 0.9% FLUSH 10 ML FLUSH IV FLUSH SCH ×2 (08:32→21:39)
[2017-01-21 08:59] LABS: AUTOMATED NEUTROPHIL # 6.9 TH/MM3 (1.8-7.7); BASOPHIL % 0.1 % (0.0-2.0); HEMATOCRIT 46.7 % (39.0-51.0); HEMO FLAGS DIFF FINAL; LYMPH % 10.2 % (9.0-44.0); LYMPHOCYTE # 0.9 TH/MM3 (1.0-4.8); MEAN CELL VOLUME 93.8 FL (80.0-100.0); MEAN CORPUSCULAR HEMOGLOBIN 31.9 PG (27.0-34.0); MONO % 11.6 % (0.0-8.0); NEUT % 78.1 % (16.0-70.0); PLATELET COUNT 123 TH/MM3 (150-450); RED BLOOD COUNT 4.98 MIL/MM3 (4.50-5.90); RED CELL DISTRIBUTION WIDTH 14.9 % (11.6-17.2); WHITE BLOOD COUNT 8.9 TH/MM3 (4.0-11.0)
--- NOTE | 2017-01-21 09:20 | PD.CONS ---
History of Present Illness Service Neurology Consult Requested By [facility] Reason for Consult sz Primary Care Physician Unknown History of Present Illness 61-year-old m admitted to icu for recurrent sz's, resp failure. pt is intubated and sedated. no hx available/obtainable from pt 2/ mental status. chart reviewed. hx of stroke, sz's. on keppra/depakate. lives in a [place] [facility] after stroke. hx of baseline confusion. depakote level 36. keppra level pending Review of Systems ROS Limitations: Intubated Past Family Social History Allergies: Coded Allergies: erythromycin base (Verified Allergy, Unknown, 01/20/17) Past Medical History Seizure disorder NOS Elevated BMI Depression Chronic Apixaban use Hypertension Dyslipidemia Dementia obstructive sleep apnea requiring CPAP History of lower extremity arterial thrombus Chronic constipation Past Surgical History Not documented. Unknown Reported Medications Citalopram 40 mg by mouth daily Clonazepam 0.25 mg by mouth at bedtime Apixaban 5 mg by mouth twice a day Metformin 1000 mg by mouth twice a day Vitamin B12 1000 mcg by mouth daily Lisinopril 20 mg by mouth twice a day Metoprolol 100 mg by mouth twice a day Levetiracetam 750 mg by mouth every 12 hours Divalproex 750 mg by mouth twice a day Atorvastatin 80 mg by mouth daily Donezepil 10 mg by mouth daily Albuterol/ipratropium aerosols every 8 hours Magnesium oxide 4 mg by mouth daily Questran 8 g by mouth daily Active Ordered Medications Reviewed in EMR Family History not available Social History Unknown if any alcohol tobacco or IV drug use Review of Systems All other ROS: ROS reviewed as documented in chart Past Family Social History Allergies: Coded Allergies: erythromycin base (Verified Allergy, Unknown, 01/20/17) Active Ordered Medications Current Medications Medications (Trade) Dose Ordered Sig/Judith Route Start Time Stop Time Status Last Admin (Peridex 0.12% Liq) 15 ml BID@08,20 MT 01/21/17 08:00 01/21/17 08:31 Propofol 100 ml @ 3.12 mls/hr TITRATE PRN IV 01/21/17 02:30 Midazolam HCl 100 ml @ 2 mls/hr TITRATE PRN IV 01/21/17 02:30 Fentanyl Citrate 250 ml @ 5 mls/hr TITRATE PRN IV 01/21/17 02:30 (Glucagon Inj) 1 mg STAT PRN IM 01/21/17 02:30 (D50w (Vial) Inj) 50 ml UNSCH PRN IV PUSH 01/21/17 02:30 (Glucagon Inj) 1 mg UNSCH PRN OTHER 01/21/17 02:30 (NovoLIN R SUPPLEMENTAL SCALE) 1 Q4HR SQ 01/21/17 04:00 Ceftriaxone Sodium 1000 mg/ Sodium Chloride 100 ml @ 200 mls/hr Q24H IV 01/22/17 02:00 (Lopressor) 100 mg BID PO 01/21/17 09:00 01/21/17 08:30 Levetriacetam 100 ml @ 400 mls/hr Q12HR IV 01/21/17 09:00 01/21/17 08:30 Valproate Sodium 500 mg/Sodium Chloride 105 ml @ 105 mls/hr Q8HR IV 01/21/17 06:00 01/21/17 06:11 Sodium Chloride 1,000 ml @ 84 mls/hr [id number] IV 01/21/17 02:25 01/21/17 03:41 (NS Flush) 2 ml UNSCH PRN IV FLUSH 01/21/17 02:30 (NS Flush) 2 ml BID IV FLUSH 01/21/17 09:00 01/21/17 08:32 (Tylenol) 650 mg Q6H PRN PO 01/21/17 02:30 (Prevacid Odt) 30 mg DAILY G-TUBE 01/21/17 09:00 01/21/17 08:30 (Tears Naturale Opth Soln) 1 drop TID EACH EYE 01/21/17 09:00 (Zofran Inj) 4 mg Q6H PRN IV PUSH 01/21/17 02:30 (Duoneb Neb) 1 ampule Q4HR NEB INH 01/21/17 04:00 01/21/17 08:04 (Albuterol Neb) 2.5 mg Q2HR NEB PRN INH 01/21/17 02:30 Miscellaneous Information 1 Q361D XX 01/21/17 02:30 (Chlorhexidine 2% Cloth) 3 pack Taper DAILY@04 TOP 01/21/17 04:00 01/17/18 03:59 01/21/17 04:00 (Chlorhexidine 2% Cloth) 3 pack UNSCH PRN TOP 01/21/17 02:30 (Brea-Colace) 1 tab BID PO 01/21/17 09:00 01/21/17 08:30 (Milk Of Magnesia Liq) 30 ml Q12H PRN PO 01/21/17 02:30 (Senokot) 17.2 mg Q12H PRN PO 01/21/17 02:30 (Dulcolax Supp) 10 mg DAILY PRN RECTAL 01/21/17 02:30 (Lactulose Liq) 30 ml DAILY PRN PO 01/21/17 02:30 (Trandate Inj) 10 mg Q1HR PRN IV PUSH 01/21/17 02:30 (Apresoline Inj) 10 mg Q1HR PRN IV PUSH 01/21/17 02:30 Potassium Chloride 100 ml @ 50 mls/hr Q2H PRN IV 01/21/17 07:15 Potassium Chloride 100 ml @ 50 mls/hr Q2H PRN IV 01/21/17 07:15 (K-Lyte Cl Eff) 50 meq UNSCH PRN PO 01/21/17 07:15 Potassium Chloride 100 ml @ 25 mls/hr UNSCH PRN IV 01/21/17 07:15 Potassium Chloride 100 ml @ 50 mls/hr Q2H PRN IV 01/21/17 07:15 Magnesium Sulfate 4 gm/Sodium Chloride 100 ml @ 50 mls/hr UNSCH PRN IV 01/21/17 07:15 (Mag-Ox) 800 mg UNSCH PRN PO 01/21/17 07:15 Magnesium Sulfate 2 gm/Sodium Chloride 100 ml @ 50 mls/hr UNSCH PRN IV 01/21/17 07:15 (K-Phos) 2,000 mg Q4H PRN PO 01/21/17 07:15 Sodium Phosphate 30 mmol/Sodium Chloride 250 ml @ 42 mls/hr UNSCH PRN IV 01/21/17 07:15 (K-Phos) 2,000 mg UNSCH PRN PO/TUBE 01/21/17 07:15 Potassium Phosphate 30 mmol/ Sodium Chloride 260 ml @ 42 mls/hr UNSCH PRN IV 01/21/17 07:15 Exam I&O / VS Vital Signs Date Time Temp Pulse Resp B/P (MAP) Pulse Ox O2 Delivery O2 Flow Rate FiO2 01/21/17 08:05 100 40 01/21/17 08:00 100.7 104 18 131/71 (91) 100 01/21/17 06:00 103 16 146/81 (102) 100 01/21/17 06:00 103 01/21/17 05:09 40 01/21/17 05:00 105 16 166/93 (117) 100 01/21/17 04:26 01/21/17 04:25 100 60 01/21/17 04:22 100 01/21/17 04:15 101.6 112 24 143/88 (106) 100 01/21/17 04:00 100 100 01/21/17 03:00 110 16 158/91 (113) 100 Ventilator 100 01/21/17 02:34 16 100 100 01/21/17 02:30 106 16 166/92 (116) 100 Ventilator 100 01/21/17 02:15 100 100 01/21/17 02:00 106 16 172/96 (121) 100 Ventilator 100 01/21/17 01:30 100 16 161/90 (113) 100 Ventilator 100 01/21/17 01:22 100 100 01/21/17 01:12 100 100 01/21/17 01:12 110 176/105 (128) 100 Ventilator 100 01/21/17 01:01 96 16 210/117 (148) 100 Ventilator 100 01/20/17 23:48 92 16 178/94 (122) 100 Ventilator 100 01/20/17 23:46 100 01/20/17 23:41 98.6 106 17 232/127 (162) 100 Ventilator 100 01/20/17 23:35 93 17 185/102 (129) 100 Ventilator 100 01/20/17 23:24 92 17 170/97 (121) 100 Ventilator 100 01/20/17 23:07 96 17 204/113 (143) 100 Ventilator 100 01/20/17 23:05 100 100 01/20/17 23:02 99 15 189/96 (127) 100 Ventilator 01/20/17 22:59 100 01/20/17 22:49 107 22 179/92 (121) 99 Exam Comments intubated, on versed gtt, coma state, non-verbal, not following, ou 4mm sluggish , mild extension with left ue, flexion with rt ue, no withdrawal in le, le edema Review/Management Diagnosis/Plan: (1) Seizure disorder ICD Codes: G40.909 - Epilepsy, unspecified, not intractable, without status epilepticus Status: Acute Plan: breakthrough sz etiology: subtherapeutic levels/ infection +fever/+leukocytosis cxr clear. u/a not that impressive recs f/u blood cx's eeg/mri brain iv keppra/depakote. add iv cerebryx iv acyclovir for now may need lp if blood cx's negative (2) Chronic arterial ischemic stroke ICD Codes: I69.30 - Unspecified sequelae of cerebral infarction Status: Chronic (3) Acute respiratory failure ICD Codes: J96.00 - Acute respiratory failure, unspecified whether with hypoxia or hypercapnia Status: Acute (4) Dementia ICD Codes: F03.90 - Unspecified dementia without behavioral disturbance Status: Chronic Problem Qualifiers (1) Acute respiratory failure: Qualified Codes: J96.01 - Acute respiratory failure with hypoxia; J96.02 - Acute respiratory failure with hypercapnia (2) Dementia: Qualified Codes: F03.90 - Unspecified dementia without behavioral disturbance Mehdi Storey MD Jan 21, 2017 09:20
[2017-01-21 09:23] LABS: BICARBONATE 23.8 MEQ/L (21.0-32.0); MAGNESIUM 1.3 MG/DL (1.5-2.5); POTASSIUM 3.7 MEQ/L (3.5-5.1)
[2017-01-21] MEDS ORDERED: SODIUM CHLORIDE 0.9% IV SCH (09:30)
[2017-01-21] MEDS ORDERED: ACYCLOVIR IV SCH (09:30)
[2017-01-21] MEDS: MIDAZOLAM 100 MG/100 ML INJ 100 ML IV PRN ×2 (09:49→18:22)
[2017-01-21] MEDS ORDERED: FOSPHENYTOIN INJ 1,000 MGPE in SODIUM CHLORIDE 0.9% INJ 50 ML IV ONE (11:00)
[2017-01-21] MEDS: ACYCLOVIR INJ 1,000 MG in SODIUM CHLORIDE 0.9% INJ 150 ML IV SCH ×2 (12:01→21:38)
[2017-01-21] MEDS: VALPROATE INJ 750 MG in SODIUM CHLORIDE 0.9% INJ 100 ML IV SCH ×2 (13:36→21:37)
--- NOTE | 2017-01-21 14:12 | EKG ---
Date Performed: 01/20/2017 Time Performed: 23:29:22 PTAGE: 89 years EKG: Sinus rhythm MODERATE INTRAVENTRICULAR CONDUCTION DELAY NONSPECIFIC T-WAVE ABNORMALITY BORDERLINE ECG NO PREVIOUS TRACING DOCTOR: Nasim Calle Interpretating Date/Time 01/21/2017 14:06:12
[2017-01-21] MEDS ORDERED: SODIUM CHLORID 0.9% 500 ML INJ 500 ML IV ONE (15:00)
[2017-01-21] MEDS ORDERED: GADODIAMIDE PF 287 MG/ML 20 ML VIAL (for RAD MRI) IV PUSH ONE (16:18)
--- NOTE | 2017-01-21 16:57 | RADRPT ---
EXAM DATE/TIME: 01/21/2017 15:34 [facility] COMPARISON: CT BRAIN W/O CONTRAST, January 21, 2017, 1:10. INDICATIONS : Seizures. CONTRAST: 20 cc Omniscan (gadodiamide) IV MEDICAL HISTORY : Deep venous thrombosis. Cerebrovascular disease. Benign brain cyst. SURGICAL HISTORY : CABG Appendectomy. IVC Filter placement. ENCOUNTER: Subsequent ACUITY: 2 day PAIN SCORE: Nonresponsive. LOCATION: head. TECHNIQUE: Multiplanar, multisequence MRI of the brain was performed both prior to and following the administrat ion of paramagnetic contrast. FINDINGS: CEREBRUM: There is moderate generalized atrophy. In cephalization in the right frontoparietal region is associa consuelo with porencephaly. No midline shift, mass lesion, hemorrhage or acute infarction. No extraaxial fluid collections are seen. The pituitary gland and suprasellar cistern are normal in configuration. Hippocampi are symmetric. WHITE MATTER: There is moderate periventricular and subcortical white matter signal change. POSTERIOR FOSSA: The cerebellum and brainstem demonstrate no acute finding. The 4th ventricle is midline. The cerebel lopontine angle is unremarkable. The cerebellar tonsils are normal in position. DIFFUSION IMAGING: No focal areas of restricted diffusion are seen. No evidence of acute infarction. EXTRACRANIAL: The visualized portions of the orbits and paranasal sinuses are unremarkable. POST-CONTRAST: No abnormal areas of parenchymal or dural enhancement. No evidence of blood-brain barrier breakdown. CONCLUSION: 1. No acute intracranial abnormality is identified. There is encephalomalacia in the right centrum se miovale associated with porencephaly. 2. There is generalized atrophy and chronic white matter changes. No findings are present to indicate recent ischemia. Alistair Baeza MD on January 21, 2017 at 16:50 Board Certified Radiologist. This report was verified electronically.
[2017-01-21] MEDS: FOSPHENYTOIN SODIUM 100 MG PE/2 ML VIAL IV SCH (21:37)
[2017-01-22] VITALS (18 sets, daily range): BP systolic 108–165; BP diastolic 60–78; PULSE 77–92; RESP 16–26; TEMP 98.8–99.5; O2SAT 99–100
[2017-01-22] MEDS: RESP: ALBUTEROL 2.5 MG/IPRATROPIUM 0.5 MG NEB (SCH) INH ×7 (00:04→23:49)
[2017-01-22] MEDS: SODIUM CHLOR 0.9% 1000 ML INJ 1,000 ML IV SCH ×2 (02:21→14:00)
[2017-01-22] MEDS: cefTRIAXone INJ 1,000 MG in SODIUM CHLORIDE 0.9% INJ 100 ML IV SCH (02:21)
[2017-01-22] MEDS: MIDAZOLAM 100 MG/100 ML INJ 100 ML IV PRN (03:04)
[2017-01-22] MEDS: CHLORHEXIDINE GLUCONATE 2 % 1 PACK (2 CLOTHS) TOP SCH (04:00)
[2017-01-22] MEDS: INSULIN NovoLIN REGULAR SUPPLEMENTAL SCALE SQ SCH ×6 (04:00→20:50)
--- NOTE | 2017-01-22 04:20 | RADRPT ---
EXAM DATE/TIME: 01/22/2017 03:37 [facility] COMPARISON: CHEST SINGLE AP, January 20, 2017, 23:29. INDICATIONS : Shortness of breath. MEDICAL HISTORY : None. SURGICAL HISTORY : CABG. ENCOUNTER: Subsequent ACUITY: 3 days PAIN SCORE: 0/10 LOCATION: Bilateral chest FINDINGS: A single view of the chest demonstrates the lungs to be symmetrically aerated without evidence of mas s, infiltrate or effusion except for subtle infiltrate in the right lung base. The endotracheal tube and nasogastric are both in good position. Cephalad to the sternal wires out of the 7 are both slight ly fractured The cardiomediastinal contours are unremarkable. Osseous structures are intact. CONCLUSION: ET tube in good position. Small infiltrate right lung base is new from the previous study. Bill Carter MD on January 22, 2017 at 4:18 Board Certified Radiologist. This report was verified electronically.
[2017-01-22 04:26] LABS: AUTOMATED NEUTROPHIL # 8.1 TH/MM3 (1.8-7.7); BASOPHIL % 0.2 % (0.0-2.0); EOSINOPHIL % 0.2 % (0.0-4.0); HEMATOCRIT 42.9 % (39.0-51.0); HEMO FLAGS DIFF FINAL; LYMPH % 15.4 % (9.0-44.0); LYMPHOCYTE # 1.7 TH/MM3 (1.0-4.8); MEAN CELL VOLUME 94.8 FL (80.0-100.0); MEAN CORPUSCULAR HEMOGLOBIN 32.5 PG (27.0-34.0); MEAN CORPUSCULAR HGB CONC 34.3 % (32.0-36.0); MONO % 9.4 % (0.0-8.0); NEUT % 74.8 % (16.0-70.0); PLATELET COUNT 108 TH/MM3 (150-450); RED BLOOD COUNT 4.52 MIL/MM3 (4.50-5.90); RED CELL DISTRIBUTION WIDTH 14.9 % (11.6-17.2); WHITE BLOOD COUNT 10.8 TH/MM3 (4.0-11.0)
[2017-01-22 04:28] LABS: APTT (PATIENT) 35.7 SEC (24.3-30.1); INTERNATIONAL NORMALIZED RATIO 1.1 RATIO; PROTHROMBIN TIME - PATIENT 12.7 SEC (9.8-11.6)
[2017-01-22 04:41] LABS: ALKALINE PHOSPHATASE 38 U/L (45-117); ALT (GPT) 19 U/L (12-78); ANION GAP 8 MEQ/L (5-15); AST (GOT) 18 U/L (15-37); BICARBONATE 28.3 MEQ/L (21.0-32.0); BLOOD UREA NITROGEN 26 MG/DL (7-18); CHLORIDE 108 MEQ/L (98-107); GLOMERULAR FILTRATION RATE 59 ML/MIN (>89); MAGNESIUM 1.8 MG/DL (1.5-2.5); POTASSIUM 3.8 MEQ/L (3.5-5.1); SODIUM (NA) 144 MEQ/L (136-145); TOTAL BILIRUBIN ADULT 1.1 MG/DL (0.2-1.0)
[2017-01-22] MEDS: ACYCLOVIR INJ 1,000 MG in SODIUM CHLORIDE 0.9% INJ 150 ML IV SCH ×3 (05:07→20:49)
[2017-01-22] MEDS: VALPROATE INJ 750 MG in SODIUM CHLORIDE 0.9% INJ 100 ML IV SCH ×3 (05:07→20:51)
[2017-01-22 05:32] LABS: BLOOD GAS BASE EXCESS 1.4 mmol/L (-2-2); BLOOD GAS CARBOXYHEMOGLOBIN 0.8 % (0-4); BLOOD GAS HCO3 25 mmol/L (22-26); BLOOD GAS METHEMOGLOBIN 1.2 % (0-2); BLOOD GAS O2 HGB SATURATION 97 % (90-100); BLOOD GAS OXYGEN CONTENT 19.4 Vol % (12.0-20.0); BLOOD GAS PCO2 39 mmHg (38-42); BLOOD GAS PO2 133 mmHg (61-120); BLOOD GAS TOTAL HGB 14.1 G/DL (12.0-16.0); TEMP CORR TO 98.6
[2017-01-22 05:33] LABS: CRITICAL VALUE NO; OXYGEN DEVICE VENT
[2017-01-22 05:34] LABS: DRAW SITE RT RADIAL; FIO2 40 %; NUMBER OF ARTERIAL PUNCTURES 1; STAT NO; ULNAR PULSE PRESENT; VENT SETTINGS SEE COMMENTS
--- NOTE | 2017-01-22 08:25 | MG ---
cc: BAKARI NAGEL M.D. Lab No: [id number] Date: 01/22/2017 Age: Sex: M Race: Hyperventilation is not performed. CT shows old small stroke on the right, witnessed seizure greater than 3 minutes, left-sided weakness, anxiety, dementia, Depakote, Versed. At the beginning of the recording it is extremely low amplitude. A 7 Hz rhythm is seen at a very low amplitude, a little bit higher on the right than the left a quarter of the way through the recording. No epileptiform or seizure activity is seen. Hyperventilation not performed. Photic stimulation is performed without significant posterior driving. IMPRESSION A very low amplitude recording, possibly medication effect. There is a slight asymmetry to the background at times with a little bit higher amplitude on the right than the left but no other abnormalities were noted, no seizure activity was seen. MD TERESA Navarrete/TLL /7:58 AM /8:23 AM
[2017-01-22] MEDS: levETIRAcetam 1000 MG INJ 100 ML IV SCH ×2 (08:30→20:51)
[2017-01-22] MEDS: CHLORHEXIDINE 0.12% (ORAL KIT) 15 ML CUP MT SCH ×2 (08:30→20:00)
[2017-01-22] MEDS: SODIUM CHLORIDE 0.9% FLUSH 10 ML FLUSH IV FLUSH SCH ×2 (08:30→20:51)
[2017-01-22] MEDS: FOSPHENYTOIN SODIUM 100 MG PE/2 ML VIAL IV SCH ×2 (08:31→20:48)
[2017-01-22] MEDS: LANSOPRAZOLE SOLUTAB 30 MG TAB G-TUBE SCH (08:31)
[2017-01-22] MEDS: ARTIFICIAL TEARS OPTH SOLN 15 ML BTL EACH EYE SCH ×3 (08:31→17:03)
[2017-01-22] MEDS: METOPROLOL TARTRATE 100 MG TAB PO SCH ×2 (08:31→20:51)
[2017-01-22] MEDS: DOCUSATE SODIUM 50 MG/SENNA 8.6 MG TAB PO SCH ×2 (08:31→20:51)
--- NOTE | 2017-01-22 08:40 | HHI.CCPN ---
Subjective Remarks/Hospital Course 61-year-old male. Date of admission 01/21/2017. Past history includes history of multiple CVAs involving the right centrum semiovale and right thalamus with residual left sided weakness, seizure disorder NOS, encephalopathy, gastroesophageal reflux disease, hyperlipidemia, hypertension type 2 diabetes, elevated BMI and chronic anticoagulation due to lower extremity thrombus originally presents to the [facility] ED from [facility] after he reportedly had a witnessed seizure of greater than [address]. [address] Borja, they were called to the facility of [facility] and [facility]. Patient reportedly had a seizure that was witnessed at 30 minutes. Report was the gave him 2 mg of IM lorazepam. When paramedics arrived he was still seizing and they gave him a further dose of 2 mg of lorazepam. Patient became apneic per paramedics en route. When patient arrived he was being [id number] ventilated. An emergent blood gas was obtained which showed a pH of 7.12 and a PCO2 of 97. Decision was made to intubate the patient emergently at [facility] after receiving 20 g, refill 100 mg succinylcholine Laboratories revealed elevated white blood cell count 14,000. Glucose of 173. CT brain revealed old right centrum semiovale right thalamic CVA. Chest x-ray revealed no acute findings. Patient is placed on midazolam drip currently at 10 mg an hour. Patient has a gag. Patient's eyes are currently moving horizontally with a rightward gaze preference. Minimal withdrawal to pain. 01/22 Patient remains sedated with Versed and intubated. EEG yesterday showed slowing , no seizures ( Prelim reading), MRI brain yesterday no acute findings. Afebrile. Objective Vital Signs Date Time Temp Pulse Resp B/P (MAP) Pulse Ox O2 Delivery O2 Flow Rate FiO2 01/22/17 06:00 85 01/22/17 04:00 40 01/22/17 04:00 98.8 18 118/69 (85) 100 01/21/17 03:00 Ventilator Intake and Output 01/22/17 01/22/17 01/23/17 08:00 16:00 00:00 Intake Total 605.5 ml Output Total 350 ml Balance 255.5 ml Result Diagram: 01/22/17 0355 01/22/17 0355 Other Results Laboratory Tests Test 01/22/17 03:55 01/22/17 05:24 White Blood Count 10.8 TH/MM3 Red Blood Count 4.52 MIL/MM3 Hemoglobin 14.7 GM/DL Hematocrit 42.9 % Mean Corpuscular Volume 94.8 FL Mean Corpuscular Hemoglobin 32.5 PG Mean Corpuscular Hemoglobin Concent 34.3 % Red Cell Distribution Width 14.9 % Platelet Count 108 TH/MM3 Mean Platelet Volume 8.2 FL Neutrophils (%) (Auto) 74.8 % Lymphocytes (%) (Auto) 15.4 % Monocytes (%) (Auto) 9.4 % Eosinophils (%) (Auto) 0.2 % Basophils (%) (Auto) 0.2 % Neutrophils # (Auto) 8.1 TH/MM3 Lymphocytes # (Auto) 1.7 TH/MM3 Monocytes # (Auto) 1.0 TH/MM3 Eosinophils # (Auto) 0.0 TH/MM3 Basophils # (Auto) 0.0 TH/MM3 CBC Comment DIFF FINAL Differential Comment Prothrombin Time 12.7 SEC Prothromb Time International Ratio 1.1 RATIO Activated Partial Thromboplast Time 35.7 SEC Blood Urea Nitrogen 26 MG/DL Creatinine 1.25 MG/DL Random Glucose 169 MG/DL Total Protein 5.4 GM/DL Albumin 2.7 GM/DL Calcium Level 8.0 MG/DL Phosphorus Level 2.3 MG/DL Magnesium Level 1.8 MG/DL Alkaline Phosphatase 38 U/L Aspartate Amino Transf (AST/SGOT) 18 U/L Alanine Aminotransferase (ALT/SGPT) 19 U/L Total Bilirubin 1.1 MG/DL Sodium Level 144 MEQ/L Potassium Level 3.8 MEQ/L Chloride Level 108 MEQ/L Carbon Dioxide Level 28.3 MEQ/L Anion Gap 8 MEQ/L Estimat Glomerular Filtration Rate 59 ML/MIN Lactic Acid Level 3.3 mmol/L Phenytoin (Dilantin) Level 6.6 MCG/ML Valproic Acid (Depakene) Level 65 MCG/ML Blood Gas Puncture Site RT RADIAL Blood Gas Patient Temperature 98.6 Blood Gas HCO3 25 mmol/L Blood Gas Base Excess 1.4 mmol/L Blood Gas Oxygen Saturation 97 % Arterial Blood pH 7.43 Arterial Blood Partial Pressure CO2 39 mmHg Arterial Blood Partial Pressure O2 133 mmHg Arterial Blood Oxygen Content 19.4 Vol % Arterial Blood Carboxyhemoglobin 0.8 % Arterial Blood Methemoglobin 1.2 % Blood Gas Hemoglobin 14.1 G/DL Oxygen Delivery Device VENT Blood Gas Ventilator Setting SEE COMMENTS Blood Gas Inspired Oxygen 40 % Imaging Last Impressions Chest X-Ray 01/22/17 0000 Signed Impressions: Service Date/Time: Sunday, January 22, 2017 03:37 - CONCLUSION: ET tube in good position. Small infiltrate right lung base is new from the previous study. Bill Carter MD Carotid Artery Ultrasound 01/21/17 0000 Signed Impressions: Service Date/Time: Saturday, January 21, 2017 07:48 - CONCLUSION: 1. Minimal atherosclerotic plaque without a hemodynamically significant stenosis involving either carotid artery. 2. Antegrade flow involving both vertebral arteries. Rafa Arnold Jr., MD Brain MRI 01/21/17 0000 Signed Impressions: Service Date/Time: Saturday, January 21, 2017 15:34 - CONCLUSION: 1. No acute intracranial abnormality is identified. 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 2. There is generalized atrophy and chronic white matter changes. No findings are present to indicate recent ischemia. Alistair Baeza MD Head CT 01/20/17 2303 Signed Impressions: Service Date/Time: Saturday, January 21, 2017 01:10 - CONCLUSION: Old stroke in the centrum semiovale region on the right. Questionable small probably chronic stroke in the right thalamus. No acute hemorrhage. Bill Carter MD Objective Remarks GENERAL: This is a 61-year-old male, critically ill currently orotracheally intubated SKIN: Warm and dry. Chronic venous stasis bilateral lower extremities HEAD: Atraumatic. Normocephalic. EYES: Pupils equal and round. No scleral icterus. No injection or drainage. ENT: No nasal bleeding or discharge. Mucous membranes pink and moist. NECK: Trachea midline. No JVD. CARDIOVASCULAR: Regular rate and rhythm. S1, S2. No S4. Without murmur. Midsternal healed scar. RESPIRATORY: Diminished breath sounds throughout. Positive coarse rhonchi appreciated anteriorly posteriorly. Positive and extremity wheezes GASTROINTESTINAL: Abdomen obese, soft. Hypoactive bowel sounds are appreciated. MUSCULOSKELETAL: Extremities with 1+ bilateral lower extremity edema.. NEUROLOGICAL: Currently biting on 2. Pupils are about 2 mm bilaterally and minimally reactive. Patient eye gaze horizontally with some nystagmus. Positive blink. Positive gag. Very difficult to elicit withdrawal to noxious stimuli bilateral upper and lower extremities. A/P Assessment and Plan Neuro/Psych: Seizure disorder Depression History of encephalopathy Prior history of CVA right centrum semiovale, right thalamus On Versed infusion for sedation. Goal of RASS -2 Daily sedation vacation 01/21 MRI brain: No acute intracranial abnormality is identified. 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 There is generalized atrophy and chronic white matter changes. CT brain 01/20 revealed remote right centrum semiovale and right thalamic CVA 01/21 EEG: Slowing, no seizures Carotid Doppler : Minimal atherosclerotic plaque without a hemodynamically significant stenosis involving either carotid artery. Antegrade flow involving both vertebral arteries. On Cerebyx 200mg IV Q12, Keppra, valproic acid, Acyclovir. Valproic acid level: 65, Dilantin level: 6.6 Patient at nursing was on levetiracetam 750 mg twice a day and divalproex 750 mg twice a day. UDS negative. Currently holding citalopram 40 mg daily and Klonopin 0.25 mg at night Currently holding benazepril 10 mg daily Currently vitamin B12 1000 g by mouth daily CV: Hypertension Dyslipidemia Patient is currently normal saline at 84 cc an hour. On metoprolol 100 mg PO BID. lisinopril 20 mg by mouth twice a day on hold Currently holding atorvastatin 80 mg by mouth at bedtime for dyslipidemia Resp: Acute respiratory failure History of MICHELLE on BiPAP 01/10 at night PRVC 15/600/1/5/40 Ventilator bundle Albuterol/ipratropium aerosols every 4 hours with albuterol aerosols every 2 hours as needed for dyspnea CXR today: Right Lung base infiltrate GI: Morbid obesity Constipation Continue tube feeds- on Glucerna 1.5@20ml/hr advance to goal rate 45ml/hr Lansoprazole for GI prophylaxis Docusate sodium/senna twice a day for bowel regimen Holding Questran 8 g daily : Monitor renal function, electrolytes replacement per protocol. Endo: Diurese mellitus Hyperglycemia Holding metformin 1000 mg by mouth twice a day Sliding-scale insulin with Novulin R with Accu-Cheks every 4 hours to maintain euglycemia/low regimen Heme: Leukocytosis Apixaban use History of lower extremity arterial thrombus question chace Monitor CBC. Eliquis 5mg BID is on hold ID: Right base pneumonia MRSA sputum and Nares Currently on ceftriaxone 1 g IV daily, add vanco Pancultured 01/21 ( Blood, sputum, urine) MSK: PT evaluate and treat Access - Utilize peripheral IV. Central line if indicated Prophylaxis - GI - lansoprazole - DVT -SCDs/ continue to hold Eliquis in case LP is needed will discuss with Neuro. Doppler US LE showed b/l DVT, will place patient on Heparin drip. Level 3 Eugene Bhatia MD Jan 22, 2017 08:40
--- NOTE | 2017-01-22 09:32 | HHI.PR ---
Review/Management Diagnosis/Plan: (1) Seizure disorder ICD Codes: G40.909 - Epilepsy, unspecified, not intractable, without status epilepticus Status: Acute Plan: breakthrough sz etiology: subtherapeutic levels/ infection +fever/+leukocytosis cxr clear. u/a not that impressive iv keppra/depakote. add iv cerebryx recs f/u blood cx's eeg-no sz, slowing mri brain-negative on versed gtt- can be weaned off from neurology iv acyclovir for now may need lp if blood cx's negative (2) Chronic arterial ischemic stroke ICD Codes: I69.30 - Unspecified sequelae of cerebral infarction Status: Chronic (3) Acute respiratory failure ICD Codes: J96.00 - Acute respiratory failure, unspecified whether with hypoxia or hypercapnia Status: Acute (4) Dementia ICD Codes: F03.90 - Unspecified dementia without behavioral disturbance Status: Chronic Subjective Subjective Comments No acute events reported Active Medications Current Medications Medications (Trade) Dose Ordered Sig/Judith Route Start Time Stop Time Status Last Admin (Peridex 0.12% Liq) 15 ml BID@08,20 MT 01/21/17 08:00 01/22/17 08:30 Propofol 100 ml @ 3.12 mls/hr TITRATE PRN IV 01/21/17 02:30 Midazolam HCl 100 ml @ 2 mls/hr TITRATE PRN IV 01/21/17 02:30 01/22/17 03:04 Fentanyl Citrate 250 ml @ 5 mls/hr TITRATE PRN IV 01/21/17 02:30 (Glucagon Inj) 1 mg STAT PRN IM 01/21/17 02:30 (D50w (Vial) Inj) 50 ml UNSCH PRN IV PUSH 01/21/17 02:30 (Glucagon Inj) 1 mg UNSCH PRN OTHER 01/21/17 02:30 (NovoLIN R SUPPLEMENTAL SCALE) 1 Q4HR SQ 01/21/17 04:00 01/22/17 04:00 Ceftriaxone Sodium 1000 mg/ Sodium Chloride 100 ml @ 200 mls/hr Q24H IV 01/22/17 02:00 01/22/17 02:21 (Lopressor) 100 mg BID PO 01/21/17 09:00 01/22/17 08:31 Levetriacetam 100 ml @ 400 mls/hr Q12HR IV 01/21/17 09:00 01/22/17 08:30 Sodium Chloride 1,000 ml @ 84 mls/hr [id number] IV 01/21/17 02:25 01/22/17 02:21 (NS Flush) 2 ml UNSCH PRN IV FLUSH 01/21/17 02:30 (NS Flush) 2 ml BID IV FLUSH 01/21/17 09:00 01/22/17 08:30 (Tylenol) 650 mg Q6H PRN PO 01/21/17 02:30 (Prevacid Odt) 30 mg DAILY G-TUBE 01/21/17 09:00 01/22/17 08:31 (Tears Naturale Opth Soln) 1 drop TID EACH EYE 01/21/17 09:00 (Zofran Inj) 4 mg Q6H PRN IV PUSH 01/21/17 02:30 (Duoneb Neb) 1 ampule Q4HR NEB INH 01/21/17 04:00 01/22/17 08:46 (Albuterol Neb) 2.5 mg Q2HR NEB PRN INH 01/21/17 02:30 Miscellaneous Information 1 Q361D XX 01/21/17 02:30 (Chlorhexidine 2% Cloth) 3 pack Taper DAILY@04 TOP 01/21/17 04:00 01/17/18 03:59 01/22/17 04:00 (Chlorhexidine 2% Cloth) 3 pack UNSCH PRN TOP 01/21/17 02:30 (Brea-Colace) 1 tab BID PO 01/21/17 09:00 01/22/17 08:31 (Milk Of Magnesia Liq) 30 ml Q12H PRN PO 01/21/17 02:30 (Senokot) 17.2 mg Q12H PRN PO 01/21/17 02:30 (Dulcolax Supp) 10 mg DAILY PRN RECTAL 01/21/17 02:30 (Lactulose Liq) 30 ml DAILY PRN PO 01/21/17 02:30 (Trandate Inj) 10 mg Q1HR PRN IV PUSH 01/21/17 02:30 (Apresoline Inj) 10 mg Q1HR PRN IV PUSH 01/21/17 02:30 Potassium Chloride 100 ml @ 50 mls/hr Q2H PRN IV 01/21/17 07:15 Potassium Chloride 100 ml @ 50 mls/hr Q2H PRN IV 01/21/17 07:15 (K-Lyte Cl Eff) 50 meq UNSCH PRN PO 01/21/17 07:15 Potassium Chloride 100 ml @ 25 mls/hr UNSCH PRN IV 01/21/17 07:15 Potassium Chloride 100 ml @ 50 mls/hr Q2H PRN IV 01/21/17 07:15 Magnesium Sulfate 4 gm/Sodium Chloride 100 ml @ 50 mls/hr UNSCH PRN IV 01/21/17 07:15 (Mag-Ox) 800 mg UNSCH PRN PO 01/21/17 07:15 Magnesium Sulfate 2 gm/Sodium Chloride 100 ml @ 50 mls/hr UNSCH PRN IV 01/21/17 07:15 01/21/17 18:24 (K-Phos) 2,000 mg Q4H PRN PO 01/21/17 07:15 Sodium Phosphate 30 mmol/Sodium Chloride 250 ml @ 42 mls/hr UNSCH PRN IV 01/21/17 07:15 (K-Phos) 2,000 mg UNSCH PRN PO/TUBE 01/21/17 07:15 Potassium Phosphate 30 mmol/ Sodium Chloride 260 ml @ 42 mls/hr UNSCH PRN IV 01/21/17 07:15 Valproate Sodium 750 mg/Sodium Chloride 107.5 ml @ 105 mls/hr Q8HR IV 01/21/17 14:00 01/22/17 05:07 (Cerebyx Inj) 200 mgpe Q12HR IV 01/21/17 21:00 01/22/17 08:31 Acyclovir Sodium 1000 mg/Sodium Chloride 150 ml @ 150 mls/hr Q8H IV 01/21/17 12:00 01/22/17 05:07 Propofol 100 ml @ 3.06 mls/hr TITRATE PRN IV 01/21/17 14:45 Allergies Allergies Coded Allergies erythromycin base (Verified Allergy, Unknown, 01/20/17) Review of Systems All other ROS: ROS reviewed as documented in chart Exam I&O / VS Vital Signs Date Time Temp Pulse Resp B/P (MAP) Pulse Ox O2 Delivery O2 Flow Rate FiO2 01/22/17 08:47 100 40 01/22/17 06:00 85 01/22/17 04:00 40 01/22/17 04:00 98.8 81 18 118/69 (85) 100 01/22/17 04:00 81 01/22/17 03:50 100 40 01/22/17 02:00 80 01/22/17 00:00 100 40 01/22/17 00:00 99.1 77 16 108/60 (76) 100 01/22/17 00:00 77 01/22/17 00:00 40 01/21/17 22:00 76 01/21/17 20:00 40 01/21/17 20:00 98.4 84 16 105/64 (78) 100 01/21/17 20:00 84 01/21/17 19:30 100 40 01/21/17 18:00 87 01/21/17 16:56 100 40 01/21/17 16:00 100 01/21/17 16:00 90 01/21/17 16:00 98.7 90 15 102/59 (73) 99 01/21/17 16:00 40 01/21/17 14:00 114 01/21/17 12:00 99.8 104 16 94/56 (69) 99 01/21/17 12:00 40 01/21/17 12:00 104 01/21/17 10:55 100 40 01/21/17 10:00 100 Exam Comments intubated, on versed gtt, coma state, non-verbal, not following, ou 4mm sluggish , mild extension with left ue, flexion with rt ue, no withdrawal in le, le edema Objective Micro and Labs Laboratory Tests Test 01/22/17 03:55 01/22/17 05:24 White Blood Count 10.8 Red Blood Count 4.52 Hemoglobin 14.7 Hematocrit 42.9 Mean Corpuscular Volume 94.8 Mean Corpuscular Hemoglobin 32.5 Mean Corpuscular Hemoglobin Concent 34.3 Red Cell Distribution Width 14.9 Platelet Count 108 Mean Platelet Volume 8.2 Neutrophils (%) (Auto) 74.8 Lymphocytes (%) (Auto) 15.4 Monocytes (%) (Auto) 9.4 Eosinophils (%) (Auto) 0.2 Basophils (%) (Auto) 0.2 Neutrophils # (Auto) 8.1 Lymphocytes # (Auto) 1.7 Monocytes # (Auto) 1.0 Eosinophils # (Auto) 0.0 Basophils # (Auto) 0.0 CBC Comment DIFF FINAL Differential Comment Prothrombin Time 12.7 Prothromb Time International Ratio 1.1 Activated Partial Thromboplast Time 35.7 Blood Urea Nitrogen 26 Creatinine 1.25 Random Glucose 169 Total Protein 5.4 Albumin 2.7 Calcium Level 8.0 Phosphorus Level 2.3 Magnesium Level 1.8 Alkaline Phosphatase 38 Aspartate Amino Transf (AST/SGOT) 18 Alanine Aminotransferase (ALT/SGPT) 19 Total Bilirubin 1.1 Sodium Level 144 Potassium Level 3.8 Chloride Level 108 Carbon Dioxide Level 28.3 Anion Gap 8 Estimat Glomerular Filtration Rate 59 Lactic Acid Level 3.3 Phenytoin (Dilantin) Level 6.6 Valproic Acid (Depakene) Level 65 Blood Gas Puncture Site RT RADIAL Blood Gas Patient Temperature 98.6 Blood Gas HCO3 25 Blood Gas Base Excess 1.4 Blood Gas Oxygen Saturation 97 Arterial Blood pH 7.43 Arterial Blood Partial Pressure CO2 39 Arterial Blood Partial Pressure O2 133 Arterial Blood Oxygen Content 19.4 Arterial Blood Carboxyhemoglobin 0.8 Arterial Blood Methemoglobin 1.2 Blood Gas Hemoglobin 14.1 Oxygen Delivery Device VENT Blood Gas Ventilator Setting SEE COMMENTS Blood Gas Inspired Oxygen 40 Date/Time Source Procedure Growth Status 01/21/17 02:05 Blood Peripheral Aerobic Blood Culture Pending Received 01/21/17 02:05 Blood Peripheral Anaerobic Blood Culture Pending Received 01/21/17 03:25 Sputum Expectorated Sputum Gram Stain Pending Worksheet 01/21/17 03:25 Sputum Expectorated Sputum Sputum Culture Pending Worksheet 01/20/17 23:30 Urine Clean Catch Urine Culture - Preliminary No growth. Resulted Problem Qualifiers (1) Acute respiratory failure: Qualified Codes: J96.01 - Acute respiratory failure with hypoxia; J96.02 - Acute respiratory failure with hypercapnia (2) Dementia: Qualified Codes: F03.90 - Unspecified dementia without behavioral disturbance Mehdi Storey MD Jan 22, 2017 09:32
--- NOTE | 2017-01-22 11:42 | RADRPT ---
EXAM DATE/TIME: 01/22/2017 10:55 [facility] COMPARISON: US CAROTID ARTERIES, January 21, 2017, 7:48. INDICATIONS : Bilateral leg edema. MEDICAL HISTORY : Dementia. Hypercholesterolemia. Diabetes mellitus type 2. Toxic encephalopathy. Left sided hemiplegia . CVA. Seizures. Embolism and thrombosis of lower extremity. Sleep apnea. GERD. Hyperlipidemia. Depre ssion. Anxiety. MRSA. SURGICAL HISTORY : Unable to obtain. ENCOUNTER: Initial ACUITY: 1 day PAIN SCORE: Non-responsive LOCATION: Bilateral leg. TECHNIQUE: Venous ultrasound of the left and right leg was performed from the inguinal ligament to the proximal calf. Real-time, color Doppler and spectral tracing, compression and augmentation techniques were us ed. FINDINGS: RIGHT LEG: The exam demonstrates partially occlusive thrombus extending from the level of the right common femor al vein throughout the superficial femoral and popliteal veins. LEFT LEG: The examination demonstrates partially occlusive thrombus within the common femoral vein and extendin g into the greater saphenous system. The remainder of the venous system in the left lower extremity i s patent. CONCLUSION: 1. The exam is positive for DVT bilaterally. Manish Perez MD on January 22, 2017 at 11:38 Board Certified Radiologist. This report was verified electronically.
[2017-01-22 13:35] LABS: MEAN CELL VOLUME 93.4 FL (80.0-100.0); MEAN CORPUSCULAR HEMOGLOBIN 31.8 PG (27.0-34.0); PLATELET COUNT 105 TH/MM3 (150-450); RED CELL DISTRIBUTION WIDTH 15.1 % (11.6-17.2); REVIEW FLAG FINAL; WHITE BLOOD COUNT 9.6 TH/MM3 (4.0-11.0)
[2017-01-22 13:42] LABS: APTT (PATIENT) 30.3 SEC (24.3-30.1); INTERNATIONAL NORMALIZED RATIO 1.1 RATIO; PROTHROMBIN TIME - PATIENT 11.7 SEC (9.8-11.6)
[2017-01-22] MEDS: HEPARIN-D5W 25,000 U/250 ML 250 ML IV PRN (13:58)
[2017-01-22] MEDS ORDERED: Vancomycin Consult Pharmacy 1 EA OTHER SCH (15:00)
[2017-01-22] MEDS ORDERED: VANCOMYCIN INJ 1,000 MG in SODIUM CHLOR 0.9% 250 ML INJ 250 ML IV SCH (16:00)
[2017-01-22] MEDS: NS IV SCH ×2 (17:03)
[2017-01-22] MEDS: VANCOMYCIN IV SCH ×2 (17:03)
[2017-01-22 20:20] LABS: APTT (PATIENT) 126.3 SEC (24.3-30.1)
[2017-01-22 23:16] LABS: APTT (PATIENT) 42.2 SEC (24.3-30.1)
[2017-01-23] VITALS (19 sets, daily range): BP systolic 113–173; BP diastolic 79–95; PULSE 75–112; RESP 16–19; TEMP 98.6–99.3; O2SAT 92–100
[2017-01-23] MEDS: INSULIN NovoLIN REGULAR SUPPLEMENTAL SCALE SQ SCH ×7 (00:51→23:19)
[2017-01-23] MEDS: cefTRIAXone INJ 1,000 MG in SODIUM CHLORIDE 0.9% INJ 100 ML IV SCH (00:52)
[2017-01-23] MEDS: RESP: ALBUTEROL 2.5 MG/IPRATROPIUM 0.5 MG NEB (SCH) INH ×6 (03:50→23:39)
[2017-01-23] MEDS: CHLORHEXIDINE GLUCONATE 2 % 1 PACK (2 CLOTHS) TOP SCH (04:00)
[2017-01-23] MEDS: ACYCLOVIR INJ 1,000 MG in SODIUM CHLORIDE 0.9% INJ 150 ML IV SCH ×3 (04:04→20:56)
[2017-01-23] MEDS: VANCOMYCIN IV SCH ×2 (04:05)
[2017-01-23] MEDS: NS IV SCH ×2 (04:05)
[2017-01-23] MEDS: VALPROATE INJ 750 MG in SODIUM CHLORIDE 0.9% INJ 100 ML IV SCH ×3 (05:53→20:55)
[2017-01-23] MEDS: SODIUM CHLOR 0.9% 1000 ML INJ 1,000 ML IV SCH ×3 (06:29→23:21)
[2017-01-23] MEDS: HEPARIN-D5W 25,000 U/250 ML 250 ML IV PRN (06:31)
[2017-01-23 07:12] LABS: AUTOMATED NEUTROPHIL # 6.5 TH/MM3 (1.8-7.7); BASOPHIL % 0.1 % (0.0-2.0); EOSINOPHIL # 0.1 TH/MM3 (0-0.4); EOSINOPHIL % 1.2 % (0.0-4.0); HEMO FLAGS DIFF FINAL; LYMPHOCYTE # 0.8 TH/MM3 (1.0-4.8); MEAN CELL VOLUME 93.5 FL (80.0-100.0); MEAN CORPUSCULAR HEMOGLOBIN 32.3 PG (27.0-34.0); MEAN CORPUSCULAR HGB CONC 34.6 % (32.0-36.0); NEUT % 79.7 % (16.0-70.0); PLATELET COUNT 101 TH/MM3 (150-450); RED BLOOD COUNT 4.06 MIL/MM3 (4.50-5.90); RED CELL DISTRIBUTION WIDTH 15.1 % (11.6-17.2); WHITE BLOOD COUNT 8.1 TH/MM3 (4.0-11.0)
[2017-01-23 07:38] LABS: BICARBONATE 25.8 MEQ/L (21.0-32.0); POTASSIUM 3.5 MEQ/L (3.5-5.1)
--- NOTE | 2017-01-23 08:48 | HHI.PR ---
Review/Management Diagnosis/Plan: (1) Seizure disorder ICD Codes: G40.909 - Epilepsy, unspecified, not intractable, without status epilepticus Status: Acute Plan: breakthrough sz etiology: subtherapeutic levels/ infection +fever/+leukocytosis cxr clear. u/a not that impressive iv keppra/depakote. add iv cerebryx dep in range found to have dvt- on hep gtt recs mental status improved hold lp in light of improved mentation and pt on anticoagulation d/c cerebryx eeg-no sz, slowing mri brain-negative d/w rn iv acyclovir for now (2) Chronic arterial ischemic stroke ICD Codes: I69.30 - Unspecified sequelae of cerebral infarction Status: Chronic (3) Acute respiratory failure ICD Codes: J96.00 - Acute respiratory failure, unspecified whether with hypoxia or hypercapnia Status: Acute (4) Dementia ICD Codes: F03.90 - Unspecified dementia without behavioral disturbance Status: Chronic Subjective Subjective Comments No acute events reported Active Medications Current Medications Medications (Trade) Dose Ordered Sig/Judith Route Start Time Stop Time Status Last Admin (Peridex 0.12% Liq) 15 ml BID@08,20 MT 01/21/17 08:00 01/22/17 20:00 Propofol 100 ml @ 3.12 mls/hr TITRATE PRN IV 01/21/17 02:30 Midazolam HCl 100 ml @ 2 mls/hr TITRATE PRN IV 01/21/17 02:30 01/22/17 03:04 Fentanyl Citrate 250 ml @ 5 mls/hr TITRATE PRN IV 01/21/17 02:30 (Glucagon Inj) 1 mg STAT PRN IM 01/21/17 02:30 (D50w (Vial) Inj) 50 ml UNSCH PRN IV PUSH 01/21/17 02:30 (Glucagon Inj) 1 mg UNSCH PRN OTHER 01/21/17 02:30 (NovoLIN R SUPPLEMENTAL SCALE) 1 Q4HR SQ 01/21/17 04:00 01/23/17 04:04 Ceftriaxone Sodium 1000 mg/ Sodium Chloride 100 ml @ 200 mls/hr Q24H IV 01/22/17 02:00 01/23/17 00:52 (Lopressor) 100 mg BID PO 01/21/17 09:00 01/22/17 20:51 Levetriacetam 100 ml @ 400 mls/hr Q12HR IV 01/21/17 09:00 01/22/17 20:51 Sodium Chloride 1,000 ml @ 84 mls/hr [id number] IV 01/21/17 02:25 01/23/17 06:29 (NS Flush) 2 ml UNSCH PRN IV FLUSH 01/21/17 02:30 (NS Flush) 2 ml BID IV FLUSH 01/21/17 09:00 01/22/17 20:51 (Tylenol) 650 mg Q6H PRN PO 01/21/17 02:30 (Prevacid Odt) 30 mg DAILY G-TUBE 01/21/17 09:00 01/22/17 08:31 (Tears Naturale Opth Soln) 1 drop TID EACH EYE 01/21/17 09:00 01/22/17 17:03 (Zofran Inj) 4 mg Q6H PRN IV PUSH 01/21/17 02:30 (Duoneb Neb) 1 ampule Q4HR NEB INH 01/21/17 04:00 01/23/17 07:24 (Albuterol Neb) 2.5 mg Q2HR NEB PRN INH 01/21/17 02:30 Miscellaneous Information 1 Q361D XX 01/21/17 02:30 (Chlorhexidine 2% Cloth) 3 pack Taper DAILY@04 TOP 01/21/17 04:00 01/17/18 03:59 01/23/17 04:00 (Chlorhexidine 2% Cloth) 3 pack UNSCH PRN TOP 01/21/17 02:30 (Brea-Colace) 1 tab BID PO 01/21/17 09:00 01/22/17 20:51 (Milk Of Magnesia Liq) 30 ml Q12H PRN PO 01/21/17 02:30 (Senokot) 17.2 mg Q12H PRN PO 01/21/17 02:30 (Dulcolax Supp) 10 mg DAILY PRN RECTAL 01/21/17 02:30 (Lactulose Liq) 30 ml DAILY PRN PO 01/21/17 02:30 (Trandate Inj) 10 mg Q1HR PRN IV PUSH 01/21/17 02:30 (Apresoline Inj) 10 mg Q1HR PRN IV PUSH 01/21/17 02:30 Potassium Chloride 100 ml @ 50 mls/hr Q2H PRN IV 01/21/17 07:15 Potassium Chloride 100 ml @ 50 mls/hr Q2H PRN IV 01/21/17 07:15 (K-Lyte Cl Eff) 50 meq UNSCH PRN PO 01/21/17 07:15 Potassium Chloride 100 ml @ 25 mls/hr UNSCH PRN IV 01/21/17 07:15 Potassium Chloride 100 ml @ 50 mls/hr Q2H PRN IV 01/21/17 07:15 Magnesium Sulfate 4 gm/Sodium Chloride 100 ml @ 50 mls/hr UNSCH PRN IV 01/21/17 07:15 (Mag-Ox) 800 mg UNSCH PRN PO 01/21/17 07:15 Magnesium Sulfate 2 gm/Sodium Chloride 100 ml @ 50 mls/hr UNSCH PRN IV 01/21/17 07:15 01/21/17 18:24 (K-Phos) 2,000 mg Q4H PRN PO 01/21/17 07:15 Sodium Phosphate 30 mmol/Sodium Chloride 250 ml @ 42 mls/hr UNSCH PRN IV 01/21/17 07:15 (K-Phos) 2,000 mg UNSCH PRN PO/TUBE 01/21/17 07:15 Potassium Phosphate 30 mmol/ Sodium Chloride 260 ml @ 42 mls/hr UNSCH PRN IV 01/21/17 07:15 Valproate Sodium 750 mg/Sodium Chloride 107.5 ml @ 105 mls/hr Q8HR IV 01/21/17 14:00 01/23/17 05:53 (Cerebyx Inj) 200 mgpe Q12HR IV 01/21/17 21:00 01/22/17 20:48 Acyclovir Sodium 1000 mg/Sodium Chloride 150 ml @ 150 mls/hr Q8H IV 01/21/17 12:00 01/23/17 04:04 Propofol 100 ml @ 3.06 mls/hr TITRATE PRN IV 01/21/17 14:45 Heparin Sodium/ Dextrose 250 ml @ 18 mls/hr TITRATE PRN IV 01/22/17 12:00 01/23/17 06:31 Pharmacy Profile Note 0 ml @ 0 mls/hr UNSCH OTHER 01/22/17 15:00 Vancomycin HCl 1250 mg/Sodium Chloride 262.5 ml @ 250 mls/hr Q12H IV 01/22/17 16:00 01/23/17 04:05 Miscellaneous Information SPECIFIC LAB TO BE DRAWN:VANCOMYICN TROUGH DATE TO... ONCE ONCE .XX 01/24/17 15:45 01/24/17 15:46 Allergies Allergies Coded Allergies erythromycin base (Verified Allergy, Unknown, 01/20/17) Review of Systems All other ROS: ROS reviewed as documented in chart Exam I&O / VS Vital Signs Date Time Temp Pulse Resp B/P (MAP) Pulse Ox O2 Delivery O2 Flow Rate FiO2 01/23/17 07:24 96 40 01/23/17 06:00 84 01/23/17 04:00 84 01/23/17 04:00 40 01/23/17 04:00 98.8 84 19 169/79 (109) 100 01/23/17 03:54 100 40 01/23/17 02:00 80 01/23/17 00:00 40 01/23/17 00:00 98.7 76 16 173/85 (114) 100 01/23/17 00:00 76 01/22/17 23:50 100 40 01/22/17 22:00 81 01/22/17 20:25 100 40 01/22/17 20:00 86 01/22/17 20:00 40 01/22/17 20:00 99.3 86 16 165/78 (107) 100 01/22/17 18:00 89 01/22/17 16:51 100 40 01/22/17 16:00 92 01/22/17 16:00 40 01/22/17 16:00 98.8 92 16 132/68 (89) 99 01/22/17 14:00 92 01/22/17 12:00 85 01/22/17 12:00 99.5 01/22/17 12:00 40 01/22/17 10:53 100 40 01/22/17 10:00 82 01/22/17 08:47 100 40 Exam Comments intubated, more alert, appears to follow some simple requests, closes eyes, raises eyebrows, ou 4mm sluggish, mild extension with left ue, flexion with rt ue, no withdrawal in le, le edema Objective Micro and Labs Laboratory Tests Test 01/22/17 12:46 01/22/17 19:48 01/22/17 22:40 01/23/17 06:47 White Blood Count 9.6 8.1 Red Blood Count 4.50 4.06 Hemoglobin 14.3 13.1 Hematocrit 42.0 38.0 Mean Corpuscular Volume 93.4 93.5 Mean Corpuscular Hemoglobin 31.8 32.3 Mean Corpuscular Hemoglobin Concent 34.0 34.6 Red Cell Distribution Width 15.1 15.1 Platelet Count 105 101 Mean Platelet Volume 8.0 7.9 Prothrombin Time 11.7 Prothromb Time International Ratio 1.1 Activated Partial Thromboplast Time 30.3 126.3 42.2 72.0 Neutrophils (%) (Auto) 79.7 Lymphocytes (%) (Auto) 10.0 Monocytes (%) (Auto) 9.0 Eosinophils (%) (Auto) 1.2 Basophils (%) (Auto) 0.1 Neutrophils # (Auto) 6.5 Lymphocytes # (Auto) 0.8 Monocytes # (Auto) 0.7 Eosinophils # (Auto) 0.1 Basophils # (Auto) 0.0 CBC Comment DIFF FINAL Differential Comment Blood Urea Nitrogen 24 Creatinine 1.02 Random Glucose 176 Calcium Level 8.1 Phosphorus Level 3.1 Magnesium Level 2.0 Sodium Level 151 Potassium Level 3.5 Chloride Level 114 Carbon Dioxide Level 25.8 Anion Gap 11 Estimat Glomerular Filtration Rate 75 Phenytoin (Dilantin) Level 6.7 Valproic Acid (Depakene) Level 65 Date/Time Source Procedure Growth Status 01/21/17 02:05 Blood Peripheral Aerobic Blood Culture - Preliminary NO GROWTH IN 1 DAY Resulted 01/21/17 02:05 Blood Peripheral Anaerobic Blood Culture - Preliminary NO GROWTH IN 1 DAY Resulted 01/21/17 03:25 Sputum Expectorated Sputum Gram Stain - Final Resulted 01/21/17 03:25 Sputum Culture - Preliminary S. Aureus Mrsa Resulted 01/20/17 23:30 Urine Clean Catch Urine Culture - Final NO GROWTH IN 48 HOURS. Complete Problem Qualifiers (1) Acute respiratory failure: Qualified Codes: J96.01 - Acute respiratory failure with hypoxia; J96.02 - Acute respiratory failure with hypercapnia (2) Dementia: Qualified Codes: F03.90 - Unspecified dementia without behavioral disturbance Mehdi Storey MD Jan 23, 2017 08:48
[2017-01-23] MEDS: METOPROLOL TARTRATE 100 MG TAB PO SCH ×2 (08:53→20:54)
[2017-01-23] MEDS: DOCUSATE SODIUM 50 MG/SENNA 8.6 MG TAB PO SCH ×2 (08:53→20:55)
[2017-01-23] MEDS: CHLORHEXIDINE 0.12% (ORAL KIT) 15 ML CUP MT SCH ×2 (08:53→20:56)
[2017-01-23] MEDS: LANSOPRAZOLE SOLUTAB 30 MG TAB G-TUBE SCH (08:53)
[2017-01-23] MEDS: levETIRAcetam 1000 MG INJ 100 ML IV SCH ×2 (08:53→20:56)
[2017-01-23] MEDS: ARTIFICIAL TEARS OPTH SOLN 15 ML BTL EACH EYE SCH ×3 (09:00→17:48)
[2017-01-23] MEDS: SODIUM CHLORIDE 0.9% FLUSH 10 ML FLUSH IV FLUSH SCH ×2 (09:00→20:55)
[2017-01-23] MEDS ORDERED: POTASSIUM CHLORIDE 20 MEQ PWD PACKET PO ONE (10:15)
--- NOTE | 2017-01-23 10:22 | HHI.CCPN ---
Subjective Remarks/Hospital Course 61-year-old male. Date of admission 01/21/2017. Past history includes history of multiple CVAs involving the right centrum semiovale and right thalamus with residual left sided weakness, seizure disorder NOS, encephalopathy, gastroesophageal reflux disease, hyperlipidemia, hypertension type 2 diabetes, elevated BMI and chronic anticoagulation due to lower extremity thrombus originally presents to the [facility] ED from [facility] and [facility] after he reportedly had a witnessed seizure of greater than [address]. [address] Borja, they were called to the facility of [facility] and [facility]. Patient reportedly had a seizure that was witnessed at 30 minutes. Report was the gave him 2 mg of IM lorazepam. When paramedics arrived he was still seizing and they gave him a further dose of 2 mg of lorazepam. Patient became apneic per paramedics en route. When patient arrived he was being [id number] ventilated. An emergent blood gas was obtained which showed a pH of 7.12 and a PCO2 of 97. Decision was made to intubate the patient emergently at [facility] after receiving 20 g, refill 100 mg succinylcholine Laboratories revealed elevated white blood cell count 14,000. Glucose of 173. CT brain revealed old right centrum semiovale right thalamic CVA. Chest x-ray revealed no acute findings. Patient is placed on midazolam drip currently at 10 mg an hour. Patient has a gag. Patient's eyes are currently moving horizontally with a rightward gaze preference. Minimal withdrawal to pain. 01/22 Patient remains sedated with Versed and intubated. EEG yesterday showed slowing , no seizures ( Prelim reading), MRI brain yesterday no acute findings. Afebrile. Subjective 01/23: Currently afebrile. Awake and alert and following commands on the ventilator. Remains on ceftriaxone, vancomycin and acyclovir. Tolerating tube feeding at 45 cc an hour. Objective Vital Signs Date Time Temp Pulse Resp B/P (MAP) Pulse Ox O2 Delivery O2 Flow Rate FiO2 01/23/17 07:24 96 40 01/23/17 06:00 84 01/23/17 04:00 98.8 19 169/79 (109) 01/21/17 03:00 Ventilator Intake and Output 01/23/17 01/23/17 01/24/17 08:00 16:00 00:00 Intake Total 1940.0 ml Output Total 1950 ml Balance -10.0 ml Result Diagram: 01/23/17 0647 01/23/17 0647 Other Results Microbiology Date/Time Source Procedure Growth Status 01/21/17 02:05 Blood Peripheral Aerobic Blood Culture - Preliminary NO GROWTH IN 1 DAY Resulted 01/21/17 02:05 Blood Peripheral Anaerobic Blood Culture - Preliminary NO GROWTH IN 1 DAY Resulted 01/21/17 03:25 Sputum Expectorated Sputum Gram Stain - Final Complete 01/21/17 03:25 Sputum Culture - Final S. Aureus Mrsa Complete 01/20/17 23:30 Urine Clean Catch Urine Culture - Final NO GROWTH IN 48 HOURS. Complete Imaging Last Impressions Lower Extremity Ultrasound 01/22/17 0000 Signed Impressions: Service Date/Time: Sunday, January 22, 2017 10:55 - CONCLUSION: 1. The exam is positive for DVT bilaterally. Manish Perez MD Chest X-Ray 01/22/17 0000 Signed Impressions: Service Date/Time: Sunday, January 22, 2017 03:37 - CONCLUSION: ET tube in good position. Small infiltrate right lung base is new from the previous study. Bill Carter MD Carotid Artery Ultrasound 01/21/17 0000 Signed Impressions: Service Date/Time: Saturday, January 21, 2017 07:48 - CONCLUSION: 1. Minimal atherosclerotic plaque without a hemodynamically significant stenosis involving either carotid artery. 2. Antegrade flow involving both vertebral arteries. Rafa Arnold Jr., MD Brain MRI 01/21/17 0000 Signed Impressions: Service Date/Time: Saturday, January 21, 2017 15:34 - CONCLUSION: 1. No acute intracranial abnormality is identified. 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 2. There is generalized atrophy and chronic white matter changes. No findings are present to indicate recent ischemia. Alistair Baeza MD Head CT 01/20/17 2568 Signed Impressions: Service Date/Time: Saturday, January 21, 2017 01:10 - CONCLUSION: Old stroke in the centrum semiovale region on the right. Questionable small probably chronic stroke in the right thalamus. No acute hemorrhage. Bill Carter MD Objective Remarks GENERAL: This is a 61-year-old male, critically ill currently orotracheally intubated SKIN: Warm and dry. Chronic venous stasis bilateral lower extremities HEAD: Atraumatic. Normocephalic. EYES: Pupils equal and round. No scleral icterus. No injection or drainage. ENT: No nasal bleeding or discharge. Mucous membranes pink and moist. NECK: Trachea midline. No JVD. CARDIOVASCULAR: Regular rate and rhythm. S1, S2. No S4. Without murmur. Midsternal healed scar. RESPIRATORY: Diminished breath sounds throughout. Positive coarse rhonchi appreciated anteriorly posteriorly. Positive and extremity wheezes GASTROINTESTINAL: Abdomen obese, soft. Hypoactive bowel sounds are appreciated. MUSCULOSKELETAL: Extremities with 1+ bilateral lower extremity edema.. NEUROLOGICAL: Eyes are open. Following simple commands. Pupils are about 2 mm bilaterally and minimally reactive. Positive blink. Positive gag. Withdraws to pain bilateral upper and lower extremities A/P Assessment and Plan Neuro/Psych: Seizure disorder Depression History of encephalopathy Prior history of CVA right centrum semiovale, right thalamus Patient is currently on no sedation. Written for midazolam drip when necessary Goal of RASS 0 Daily sedation vacation 01/21 MRI brain: No acute intracranial abnormality is identified. 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 There is generalized atrophy and chronic white matter changes. CT brain 01/20 revealed remote right centrum semiovale and right thalamic CVA 01/21 EEG: Slowing, right greater than left. No epileptiform activity Carotid Doppler : Minimal atherosclerotic plaque without a hemodynamically significant stenosis involving either carotid artery. Antegrade flow involving both vertebral arteries. Levetiracetam 1000 mg IV twice a day and valproic acid 750 mg IV every 8 hours, Follow-up on valproic acid level in a.m. Patient at nursing was on levetiracetam 750 mg twice a day and divalproex 750 mg twice a day. UDS negative. Currently resuming citalopram 40 mg daily -Holding clonazepam 0.25 mg at night Currently continuing donepezil 10 mg daily Currently vitamin B12 1000 g by mouth daily Please see infectious disease for antibiotic/antiviral coverage. CV: Hypertension Dyslipidemia Patient is currently normal saline at 84 cc an hour. On metoprolol 100 mg PO BID. lisinopril 20 mg by mouth twice a day on hold Okay to resume atorvastatin 80 mg by mouth at bedtime for dyslipidemia with cholestyramine dose 8 g daily for dyslipidemia Resp: Acute respiratory failure History of MICHELLE on BiPAP 01/10 at night PRVC 16/600/1/5/40 Ventilator bundle Albuterol/ipratropium aerosols every 4 hours with albuterol aerosols every 2 hours as needed for dyspnea Spontaneous breathing trials when indicated CXR 01/22: Right Lung base infiltrate CPAP trials today GI: Morbid obesity Constipation Continue tube feeds- on Glucerna 1.5@20ml/hr advance to goal rate 60 ml/hr Lansoprazole 30 mg by tube daily GI prophylaxis Docusate sodium/senna twice a day for bowel regimen Renal/FEN/: Hypernatremia Monitor renal function, electrolytes replacement per protocol. Free water 200 cc every 6 hours Potassium chloride 20 mEq by 21 now. Recheck in a.m. Continue Dexter catheter Endo: Diabetes mellitus Hyperglycemia Holding metformin 1000 mg by mouth twice a day Sliding-scale insulin with Novulin R with Accu-Cheks every 4 hours to maintain euglycemia/low regimen Heme: Leukocytosis Apixaban use History of lower extremity arterial thrombus Thrombocytopenia Monitor CBC. Apixaban 5mg BID is on hold Ultrasound bilateral ultrasound revealed right common femoral vein - SFV/ popliteal thrombus with left common femoral vein to greater saphenous vein thrombus Heparin drip currently at 14,000 units an hour ID: Right base pneumonia MRSA sputum and Nares Currently on ceftriaxone 1 g IV daily and vancomycin Pancultured 01/21 ( Blood, sputum, urine no growth) Currently on acyclovir, ceftriaxone and vancomycin. MSK: PT evaluate and treat Access - Utilize peripheral IV. Central line if indicated Prophylaxis - GI - lansoprazole - DVT -SCDs/ continue to hold Apxaban in case LP is needed will discuss with Neuro. Doppler US LE showed b/l DVT, will place patient on Heparin drip. Level 3 Mayco Soria MD Jan 23, 2017 10:22
--- NOTE | 2017-01-23 10:25 | PD.CAR.PN ---
CVT Progress Note Subjective/Hospital Course: Patient seen Full consult dictated Patient does not have acute arterial ischemia J Objective: Vital Signs Date Time Temp Pulse Resp B/P (MAP) Pulse Ox O2 Delivery O2 Flow Rate FiO2 01/23/17 07:24 96 40 01/23/17 06:00 84 01/23/17 04:00 84 01/23/17 04:00 40 01/23/17 04:00 98.8 84 19 169/79 (109) 100 01/23/17 03:54 100 40 01/23/17 02:00 80 01/23/17 00:00 40 01/23/17 00:00 98.7 76 16 173/85 (114) 100 01/23/17 00:00 76 01/22/17 23:50 100 40 01/22/17 22:00 81 01/22/17 20:25 100 40 01/22/17 20:00 86 01/22/17 20:00 40 01/22/17 20:00 99.3 86 16 165/78 (107) 100 01/22/17 18:00 89 01/22/17 16:51 100 40 01/22/17 16:00 92 01/22/17 16:00 40 01/22/17 16:00 98.8 92 16 132/68 (89) 99 01/22/17 14:00 92 01/22/17 12:00 85 01/22/17 12:00 99.5 01/22/17 12:00 40 01/22/17 10:53 100 40 Labs: Laboratory Tests Test 01/22/17 22:40 01/23/17 06:47 Activated Partial Thromboplast Time 42.2 SEC (24.3-30.1) 72.0 SEC (24.3-30.1) White Blood Count 8.1 TH/MM3 (4.0-11.0) Red Blood Count 4.06 MIL/MM3 (4.50-5.90) Hemoglobin 13.1 GM/DL (13.0-17.0) Hematocrit 38.0 % (39.0-51.0) Mean Corpuscular Volume 93.5 FL (80.0-100.0) Mean Corpuscular Hemoglobin 32.3 PG (27.0-34.0) Mean Corpuscular Hemoglobin Concent 34.6 % (32.0-36.0) Red Cell Distribution Width 15.1 % (11.6-17.2) Platelet Count 101 TH/MM3 (150-450) Mean Platelet Volume 7.9 FL (7.0-11.0) Neutrophils (%) (Auto) 79.7 % (16.0-70.0) Lymphocytes (%) (Auto) 10.0 % (9.0-44.0) Monocytes (%) (Auto) 9.0 % (0.0-8.0) Eosinophils (%) (Auto) 1.2 % (0.0-4.0) Basophils (%) (Auto) 0.1 % (0.0-2.0) Neutrophils # (Auto) 6.5 TH/MM3 (1.8-7.7) Lymphocytes # (Auto) 0.8 TH/MM3 (1.0-4.8) Monocytes # (Auto) 0.7 TH/MM3 (0-0.9) Eosinophils # (Auto) 0.1 TH/MM3 (0-0.4) Basophils # (Auto) 0.0 TH/MM3 (0-0.2) CBC Comment DIFF FINAL Differential Comment Blood Urea Nitrogen 24 MG/DL (7-18) Creatinine 1.02 MG/DL (0.60-1.30) Random Glucose 176 MG/DL (74-106) Calcium Level 8.1 MG/DL (8.5-10.1) Phosphorus Level 3.1 MG/DL (2.5-4.9) Magnesium Level 2.0 MG/DL (1.5-2.5) Sodium Level 151 MEQ/L (136-145) Potassium Level 3.5 MEQ/L (3.5-5.1) Chloride Level 114 MEQ/L (98-107) Carbon Dioxide Level 25.8 MEQ/L (21.0-32.0) Anion Gap 11 MEQ/L (5-15) Estimat Glomerular Filtration Rate 75 ML/MIN (>89) Phenytoin (Dilantin) Level 6.7 MCG/ML (10.0-20.0) Valproic Acid (Depakene) Level 65 MCG/ML (50-100) Result Diagram: 01/23/17 0647 01/23/17 0647 Mariella Mujica MD Jan 23, 2017 10:25
[2017-01-23] MEDS: FREE WATER G-TUBE SCH ×3 (12:00→23:19)
--- NOTE | 2017-01-23 13:09 | MB ---
cc: MARIELLA RODRIGUEZ MD DATE OF CONSULTATION 01/22/[address] Rodriguez, vascular surgery REASON FOR CONSULTATION Ischemia of the legs. HISTORY OF PRESENT DISEASE This is a 61-year-old male who was last admitted on 21 January, with seizure. yesterday. 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 The patient was for a prolonged time in our hospital on the respirator and was then transferred to a rehab where he had a seizure. The patient had previous seizures as well. Now he is in the ICU intubated and ventilated and repeat venous ultrasound reveals bilateral DVT in both legs and while nursing could not obtain distal pulses, hence the consultation. PAST MEDICAL HISTORY As noted above is very complex and includes: 1. Diabetes mellitus 2. Hypertension 3. Dyslipidemia 4. A number of other problems enumerated above including the strokes. MEDICATIONS The patient is on multiple medications. SOCIAL HISTORY I cannot obtain. PHYSICAL EXAM Physical examination reveals a 61-year-old male on a respirator. HEAD, EYES, EARS, NOSE, AND THROAT: Normocephalic. No trauma to the head. Pupils are equal, poorly reactive. Extraocular muscles cannot be tested. The patient clearly not seizing at this time. LUNGS: He is fully ventilatory supported bilateral breath sounds. HEART: Regular rhythm at this time. ABDOMEN: Soft. Hypoactive bowel sounds. EXTREMITIES: The patient actually has palpable femoral pulses and dopplerable strong popliteal, dorsalis pedis and posterior tibial pulses. There is no acute vascular deficit noted. Capillary refill is normal. The patient has discoloration with hemosiderosis of both legs and left leg is larger in diameter, more affected. These are sequelae of chronic venostasis and chronic venous insufficiency. In addition, the patient has some body disproportion with slight atrophy of the left side of the body compared to the right side. NEUROLOGIC: Exam is complex and neurology has seen the patient. He is now sedated on the ventilator. IMPRESSION After reviewing laboratory diagnostic procedure and evaluating the patient, this gentleman does not have acute vascular insufficiency. He has dopplerable strong pulses in both feet and I believe the problem was a nonfunctioning Doppler machine that was used in the ICU, I brought my own and hence the result. As far as the venous system is concerned patient is chronic DVT and on that superimposed possibly some acute new changes. He does have IVC filter already in place and surgically there is nothing else we can do. Critical care time 40 minutes. Mariella BARAJAS/JULIOL /12:54 PM /1:08 PM MTDGordon
[2017-01-23] MEDS: hydrALAZINE HCL 20 MG/ML VIAL IV PUSH PRN (14:22)
[2017-01-23] MEDS: VANCOMYCIN INJ 1,750 MG in SODIUM CHLORID 0.9% 500 ML INJ 500 ML IV SCH (16:12)
--- NOTE | 2017-01-23 17:14 | ECHRPT ---
Indication: CVA/TIA CONCLUSIONS Normal left ventricular size. Mild concentric left ventricular hypertrophy. The left ventricular systolic function is severely reduced with an estimated ejection fraction in th e range of 30-35%. Trace mitral valve regurgitation. There is trace tricuspid valve regurgitation. The estimated pulmonary arterial pressure is 25 mmHg. BP: 157 / 75 HR: Rhythm: Sinus MEASUREMENTS (Male / Female) Normal Values Technical Quality:Fair 2D ECHO LV Diastolic Diameter PLAX 6.0 cm 4.2 - 5.9 / 3.9 - 5.3 cm LV Systolic Diameter PLAX 5.3 cm IVS Diastolic Thickness 1.2 cm 0.6 - 1.0 / 0.6 - 0.9 cm LVPW Diastolic Thickness 1.2 cm 0.6 - 1.0 / 0.6 - 0.9 cm LV Relative Wall Thickness 0.4 LVOT Diameter 2.4 cm Aortic Root Diameter 3.1 cm LA Systolic Diameter LX 3.7 cm 3.0 - 4.0 / 2.7 - 3.8 cm M-MODE AV Cusp Separation MM 2.4 cm DOPPLER AV Peak Velocity 127.0 cm/s AV Peak Gradient 6.5 mmHg AV Mean Gradient 3.0 mmHg AV Velocity Time Integral 22.0 cm LVOT Peak Velocity 102.0 cm/s LVOT Peak Gradient 4.2 mmHg LVOT Velocity Time Integral 18.7 cm AV Area Cont Eq vti 3.8 cm AV Area Cont Eq pk 3.6 cm Mitral E Point Velocity 81.2 cm/s Mitral A Point Velocity 103.0 cm/s Mitral E to A Ratio 0.8 LV E' Lateral Velocity 8.8 cm/s Mitral E to LV E' Lateral Ratio 9.3 LV E' Septal Velocity 3.9 cm/s Mitral E to LV E' Septal Ratio 20.8 TR Peak Velocity 195.0 cm/s TR Peak Gradient 15.2 mmHg PV Peak Velocity 94.0 cm/s PV Peak Gradient 3.5 mmHg FINDINGS LEFT VENTRICLE Normal left ventricular size. Mild concentric left ventricular hypertrophy. The left ventricular systolic function is severely reduced with an estimated ejection fraction in th e range of 30-35%. RIGHT VENTRICLE Normal right ventricular size and systolic function. LEFT ATRIUM The left atrial size is normal. RIGHT ATRIUM The right atrial size is normal. ATRIAL SEPTUM Normal atrial septal thickness without atrial level shunting by limited color doppler interrogation. AORTA The aortic root and proximal ascending aorta are normal in size on limited imaging. MITRAL VALVE Trace mitral valve regurgitation. AORTIC VALVE Trileaflet aortic valve. No aortic valve stenosis or regurgitation. TRICUSPID VALVE There is trace tricuspid valve regurgitation. The estimated pulmonary arterial pressure is 25 mmHg. PULMONARY VALVE The pulmonary valve is not well visualized. VESSELS The inferior vena cava is normal in size. PERICARDIUM No pericardial effusion. Champ Shultz MD (Electronically Signed) Final Date:23 January 2017 17:14
[2017-01-23] MEDS: MIDAZOLAM 100 MG/100 ML INJ 100 ML IV PRN ×2 (17:26→22:19)
[2017-01-23] MEDS: CITALOPRAM HYDROBROMIDE 40 MG TAB PO SCH (20:54)
[2017-01-23] MEDS: DONEPEZIL HCL 5 MG TAB PO SCH (20:54)
[2017-01-23] MEDS: ATORVASTATIN 80 MG TAB PO SCH (20:54)
[2017-01-23] MEDS: MUPIROCIN 2% OINT 1 APPLIC/GM SYR EACH NARE SCH (20:55)
[2017-01-23] MEDS: POTASSIUM CHLOR 20 MEQ PREMIX 100 ML IV PRN ×2 (23:19→23:21)
[2017-01-24] VITALS (22 sets, daily range): BP systolic 148–181; BP diastolic 76–92; PULSE 79–111; RESP 16–25; TEMP 98.2–100.1; O2SAT 95–100
[2017-01-24] MEDS: HEPARIN-D5W 25,000 U/250 ML 250 ML IV PRN ×2 (00:52→18:40)
[2017-01-24] MEDS: cefTRIAXone INJ 1,000 MG in SODIUM CHLORIDE 0.9% INJ 100 ML IV SCH (01:42)
[2017-01-24] MEDS: RESP: ALBUTEROL 2.5 MG/IPRATROPIUM 0.5 MG NEB (SCH) INH ×5 (03:52→20:16)
[2017-01-24] MEDS: CHLORHEXIDINE GLUCONATE 2 % 1 PACK (2 CLOTHS) TOP SCH (04:00)
[2017-01-24] MEDS: ACYCLOVIR INJ 1,000 MG in SODIUM CHLORIDE 0.9% INJ 150 ML IV SCH ×3 (04:23→20:57)
[2017-01-24] MEDS: INSULIN NovoLIN REGULAR SUPPLEMENTAL SCALE SQ SCH ×6 (04:23→23:08)
[2017-01-24] MEDS: hydrALAZINE HCL 20 MG/ML VIAL IV PUSH PRN ×2 (04:24→16:51)
[2017-01-24] MEDS: VANCOMYCIN INJ 1,750 MG in SODIUM CHLORID 0.9% 500 ML INJ 500 ML IV SCH ×2 (04:24→16:50)
[2017-01-24] MEDS: FREE WATER G-TUBE SCH ×5 (05:15→19:57)
[2017-01-24] MEDS: VALPROATE INJ 750 MG in SODIUM CHLORIDE 0.9% INJ 100 ML IV SCH ×3 (05:15→20:57)
--- NOTE | 2017-01-24 05:51 | RADRPT ---
EXAM DATE/TIME: 01/24/2017 04:27 [facility] COMPARISON: CHEST SINGLE AP, January 22, 2017, 3:37. INDICATIONS : Evaluate for infiltrate, Respiratory failure MEDICAL HISTORY : None. SURGICAL HISTORY : CABG. ENCOUNTER: Subsequent ACUITY: 4 - 6 days PAIN SCORE: Non-responsive. LOCATION: Bilateral chest FINDINGS: ET tube tip well above the merced. Gastric tube tip and side-port project within the stomach. East al wire sutures stable from prior with discontinuity of the upper 2 wires. Small area of infiltrate in the medial left lower lung a similar appearance to prior exam. The right lung is clear. The hear t is stable in size. CONCLUSION: Persistent left lower lung infiltrate. Rafa Forrester MD on January 24, 2017 at 5:48 Board Certified Radiologist. This report was verified electronically.
[2017-01-24 06:25] LABS: AUTOMATED NEUTROPHIL # 5.3 TH/MM3 (1.8-7.7); BASOPHIL % 0.3 % (0.0-2.0); EOSINOPHIL # 0.3 TH/MM3 (0-0.4); EOSINOPHIL % 4.1 % (0.0-4.0); HEMATOCRIT 41.2 % (39.0-51.0); LYMPH % 12.7 % (9.0-44.0); LYMPHOCYTE # 0.9 TH/MM3 (1.0-4.8); MEAN CELL VOLUME 95.3 FL (80.0-100.0); MEAN CORPUSCULAR HGB CONC 33.6 % (32.0-36.0); MONO % 6.6 % (0.0-8.0); NEUT % 76.3 % (16.0-70.0); PLATELET COUNT 95 TH/MM3 (150-450); RED BLOOD COUNT 4.32 MIL/MM3 (4.50-5.90); RED CELL DISTRIBUTION WIDTH 15.3 % (11.6-17.2)
[2017-01-24 06:41] LABS: APTT (PATIENT) 73.5 SEC (24.3-30.1)
[2017-01-24 06:51] LABS: ANION GAP 6 MEQ/L (5-15); AST (GOT) 15 U/L (15-37); BICARBONATE 27.9 MEQ/L (21.0-32.0); BLOOD UREA NITROGEN 19 MG/DL (7-18); CHLORIDE 115 MEQ/L (98-107); GLOMERULAR FILTRATION RATE 81 ML/MIN (>89); MAGNESIUM 1.9 MG/DL (1.5-2.5); POTASSIUM 3.8 MEQ/L (3.5-5.1); SODIUM (NA) 149 MEQ/L (136-145)
[2017-01-24 06:55] LABS: ALKALINE PHOSPHATASE 54 U/L (45-117); ALT (GPT) 20 U/L (12-78); TOTAL BILIRUBIN ADULT 0.4 MG/DL (0.2-1.0)
[2017-01-24 07:02] LABS: HEMO FLAGS AUTO DIFF
--- NOTE | 2017-01-24 07:56 | HHI.PR ---
Review/Management Diagnosis/Plan: (1) Seizure disorder ICD Codes: G40.909 - Epilepsy, unspecified, not intractable, without status epilepticus Status: Acute Plan: breakthrough sz etiology: subtherapeutic levels/ infection +fever/+leukocytosis cxr clear. u/a not that impressive iv keppra/depakote recs mental status improved neuro stable will follow peripherally d/w rn (2) Chronic arterial ischemic stroke ICD Codes: I69.30 - Unspecified sequelae of cerebral infarction Status: Chronic (3) Acute respiratory failure ICD Codes: J96.00 - Acute respiratory failure, unspecified whether with hypoxia or hypercapnia Status: Acute (4) Dementia ICD Codes: F03.90 - Unspecified dementia without behavioral disturbance Status: Chronic Subjective Subjective Comments No acute events reported following for rn yesterday; restarted on versed gtt due to restlessness Active Medications Current Medications Medications (Trade) Dose Ordered Sig/Judith Route Start Time Stop Time Status Last Admin (Peridex 0.12% Liq) 15 ml BID@08,20 MT 01/21/17 08:00 01/23/17 20:56 Midazolam HCl 100 ml @ 2 mls/hr TITRATE PRN IV 01/21/17 02:30 01/23/17 22:19 Fentanyl Citrate 250 ml @ 5 mls/hr TITRATE PRN IV 01/21/17 02:30 (Glucagon Inj) 1 mg STAT PRN IM 01/21/17 02:30 (D50w (Vial) Inj) 50 ml UNSCH PRN IV PUSH 01/21/17 02:30 (Glucagon Inj) 1 mg UNSCH PRN OTHER 01/21/17 02:30 (NovoLIN R SUPPLEMENTAL SCALE) 1 Q4HR SQ 01/21/17 04:00 01/24/17 04:23 Ceftriaxone Sodium 1000 mg/ Sodium Chloride 100 ml @ 200 mls/hr Q24H IV 01/22/17 02:00 01/24/17 01:42 (Lopressor) 100 mg BID PO 01/21/17 09:00 01/23/17 20:54 Levetriacetam 100 ml @ 400 mls/hr Q12HR IV 01/21/17 09:00 01/23/17 20:56 Sodium Chloride 1,000 ml @ 84 mls/hr [id number] IV 01/21/17 02:25 01/23/17 23:21 (NS Flush) 2 ml UNSCH PRN IV FLUSH 01/21/17 02:30 (NS Flush) 2 ml BID IV FLUSH 01/21/17 09:00 01/23/17 20:55 (Tylenol) 650 mg Q6H PRN PO 01/21/17 02:30 (Prevacid Odt) 30 mg DAILY G-TUBE 01/21/17 09:00 01/23/17 08:53 (Tears Naturale Opth Soln) 1 drop TID EACH EYE 01/21/17 09:00 01/22/17 17:03 (Zofran Inj) 4 mg Q6H PRN IV PUSH 01/21/17 02:30 (Duoneb Neb) 1 ampule Q4HR NEB INH 01/21/17 04:00 01/24/17 03:52 (Albuterol Neb) 2.5 mg Q2HR NEB PRN INH 01/21/17 02:30 Miscellaneous Information 1 Q361D XX 01/21/17 02:30 (Chlorhexidine 2% Cloth) 3 pack Taper DAILY@04 TOP 01/21/17 04:00 01/17/18 03:59 01/24/17 04:00 (Chlorhexidine 2% Cloth) 3 pack UNSCH PRN TOP 01/21/17 02:30 (Brea-Colace) 1 tab BID PO 01/21/17 09:00 01/23/17 20:55 (Milk Of Magnesia Liq) 30 ml Q12H PRN PO 01/21/17 02:30 (Senokot) 17.2 mg Q12H PRN PO 01/21/17 02:30 (Dulcolax Supp) 10 mg DAILY PRN RECTAL 01/21/17 02:30 (Lactulose Liq) 30 ml DAILY PRN PO 01/21/17 02:30 (Trandate Inj) 10 mg Q1HR PRN IV PUSH 01/21/17 02:30 (Apresoline Inj) 10 mg Q1HR PRN IV PUSH 01/21/17 02:30 01/24/17 04:24 Potassium Chloride 100 ml @ 50 mls/hr Q2H PRN IV 01/21/17 07:15 Potassium Chloride 100 ml @ 50 mls/hr Q2H PRN IV 01/21/17 07:15 (K-Lyte Cl Eff) 50 meq UNSCH PRN PO 01/21/17 07:15 Potassium Chloride 100 ml @ 25 mls/hr UNSCH PRN IV 01/21/17 07:15 Potassium Chloride 100 ml @ 50 mls/hr Q2H PRN IV 01/21/17 07:15 01/23/17 23:19 Magnesium Sulfate 4 gm/Sodium Chloride 100 ml @ 50 mls/hr UNSCH PRN IV 01/21/17 07:15 (Mag-Ox) 800 mg UNSCH PRN PO 01/21/17 07:15 Magnesium Sulfate 2 gm/Sodium Chloride 100 ml @ 50 mls/hr UNSCH PRN IV 01/21/17 07:15 01/21/17 18:24 (K-Phos) 2,000 mg Q4H PRN PO 01/21/17 07:15 Sodium Phosphate 30 mmol/Sodium Chloride 250 ml @ 42 mls/hr UNSCH PRN IV 01/21/17 07:15 (K-Phos) 2,000 mg UNSCH PRN PO/TUBE 01/21/17 07:15 Potassium Phosphate 30 mmol/ Sodium Chloride 260 ml @ 42 mls/hr UNSCH PRN IV 01/21/17 07:15 Valproate Sodium 750 mg/Sodium Chloride 107.5 ml @ 105 mls/hr Q8HR IV 01/21/17 14:00 01/24/17 05:15 Acyclovir Sodium 1000 mg/Sodium Chloride 150 ml @ 150 mls/hr Q8H IV 01/21/17 12:00 01/24/17 04:23 Propofol 100 ml @ 3.06 mls/hr TITRATE PRN IV 01/21/17 14:45 Heparin Sodium/ Dextrose 250 ml @ 18 mls/hr TITRATE PRN IV 01/22/17 12:00 01/24/17 00:52 Pharmacy Profile Note 0 ml @ 0 mls/hr UNSCH OTHER 01/22/17 15:00 Miscellaneous Information SPECIFIC LAB TO BE DRAWN:VANCOMYICN TROUGH DATE TO... ONCE ONCE .XX 01/24/17 15:45 01/24/17 15:46 Vancomycin HCl 1750 mg/Sodium Chloride 517.5 ml @ 250 mls/hr Q12H IV 01/23/17 16:00 01/24/17 04:24 (Lipitor) 80 mg HS PO 01/23/17 21:00 01/23/17 20:54 (CeleXA) 40 mg HS PO 01/23/17 21:00 01/23/17 20:54 (Aricept) 10 mg HS PO 01/23/17 21:00 01/23/17 20:54 (Bactroban Nasal 2% Oint) 1 applic Taper BID EACH NARE 01/23/17 21:00 01/19/18 20:59 01/23/17 20:55 (Questran 4 Gm Pkt) 8 gm DAILY PO 01/24/17 09:00 (Free Water) 200 ml Q6HR G-TUBE 01/23/17 12:00 01/24/17 05:15 Allergies Allergies Coded Allergies erythromycin base (Verified Allergy, Unknown, 01/20/17) Review of Systems All other ROS: ROS reviewed as documented in chart Exam I&O / VS Vital Signs Date Time Temp Pulse Resp B/P (MAP) Pulse Ox O2 Delivery O2 Flow Rate FiO2 01/24/17 06:00 104 01/24/17 04:08 100 35 01/24/17 04:00 85 01/24/17 04:00 40 01/24/17 04:00 99.0 85 17 181/92 (121) 100 01/24/17 02:00 83 01/24/17 01:05 100 35 01/24/17 00:00 99.0 83 16 148/76 (100) 100 01/24/17 00:00 83 01/24/17 00:00 40 01/23/17 22:47 100 35 01/23/17 22:00 76 01/23/17 20:08 100 40 01/23/17 20:00 95 01/23/17 20:00 40 01/23/17 20:00 98.6 95 17 155/87 (109) 100 01/23/17 18:00 96 01/23/17 16:02 100 40 01/23/17 16:00 40 01/23/17 16:00 109 01/23/17 16:00 98.9 109 19 173/81 (111) 99 01/23/17 14:00 112 01/23/17 12:45 100 40 01/23/17 12:00 98.9 75 16 126/82 (97) 100 01/23/17 12:00 75 01/23/17 12:00 40 01/23/17 11:34 40 01/23/17 10:34 92 40 01/23/17 10:00 76 01/23/17 08:00 40 01/23/17 08:00 99.3 100 16 113/95 (101) 100 Exam Comments intubated, alerts and attempts to follow but falls back asleep, ou 4mm sluggish , mild extension with left ue, flexion with rt ue, no withdrawal in le, le edema Objective Micro and Labs Laboratory Tests Test 01/23/17 15:05 01/24/17 05:44 Activated Partial Thromboplast Time 73.0 73.5 White Blood Count 7.0 Red Blood Count 4.32 Hemoglobin 13.8 Hematocrit 41.2 Mean Corpuscular Volume 95.3 Mean Corpuscular Hemoglobin 32.0 Mean Corpuscular Hemoglobin Concent 33.6 Red Cell Distribution Width 15.3 Platelet Count 95 Mean Platelet Volume 8.4 Neutrophils (%) (Auto) 76.3 Lymphocytes (%) (Auto) 12.7 Monocytes (%) (Auto) 6.6 Eosinophils (%) (Auto) 4.1 Basophils (%) (Auto) 0.3 Neutrophils # (Auto) 5.3 Lymphocytes # (Auto) 0.9 Monocytes # (Auto) 0.5 Eosinophils # (Auto) 0.3 Basophils # (Auto) 0.0 CBC Comment AUTO DIFF Blood Urea Nitrogen 19 Creatinine 0.95 Random Glucose 156 Total Protein 6.2 Albumin 2.6 Calcium Level 8.3 Phosphorus Level 2.7 Magnesium Level 1.9 Alkaline Phosphatase 54 Aspartate Amino Transf (AST/SGOT) 15 Alanine Aminotransferase (ALT/SGPT) 20 Total Bilirubin 0.4 Sodium Level 149 Potassium Level 3.8 Chloride Level 115 Carbon Dioxide Level 27.9 Anion Gap 6 Estimat Glomerular Filtration Rate 81 Phenytoin (Dilantin) Level 6.5 Valproic Acid (Depakene) Level 63 Date/Time Source Procedure Growth Status 01/21/17 02:05 Blood Peripheral Aerobic Blood Culture - Preliminary NO GROWTH IN 2 DAYS Resulted 01/21/17 02:05 Blood Peripheral Anaerobic Blood Culture - Preliminary NO GROWTH IN 2 DAYS Resulted 01/21/17 03:25 Sputum Expectorated Sputum Gram Stain - Final Complete 01/21/17 03:25 Sputum Culture - Final S. Aureus Mrsa Complete 01/20/17 23:30 Urine Clean Catch Urine Culture - Final NO GROWTH IN 48 HOURS. Complete Problem Qualifiers (1) Acute respiratory failure: Qualified Codes: J96.01 - Acute respiratory failure with hypoxia; J96.02 - Acute respiratory failure with hypercapnia (2) Dementia: Qualified Codes: F03.90 - Unspecified dementia without behavioral disturbance Mehdi Storey MD Jan 24, 2017 07:56
[2017-01-24] MEDS: DOCUSATE SODIUM 50 MG/SENNA 8.6 MG TAB PO SCH ×2 (07:57→19:51)
[2017-01-24] MEDS: METOPROLOL TARTRATE 100 MG TAB PO SCH ×2 (07:57→20:56)
[2017-01-24] MEDS: CHOLESTYRAMINE 4 GM PACKET PO SCH (07:57)
[2017-01-24] MEDS: LANSOPRAZOLE SOLUTAB 30 MG TAB G-TUBE SCH (07:57)
[2017-01-24] MEDS: MUPIROCIN 2% OINT 1 APPLIC/GM SYR EACH NARE SCH ×2 (07:58→20:57)
[2017-01-24] MEDS: SODIUM CHLORIDE 0.9% FLUSH 10 ML FLUSH IV FLUSH SCH ×2 (07:58→20:56)
[2017-01-24] MEDS: ARTIFICIAL TEARS OPTH SOLN 15 ML BTL EACH EYE SCH ×3 (07:58→16:41)
[2017-01-24] MEDS: CHLORHEXIDINE 0.12% (ORAL KIT) 15 ML CUP MT SCH ×2 (07:58→19:21)
[2017-01-24] MEDS: levETIRAcetam 1000 MG INJ 100 ML IV SCH ×2 (07:59→20:56)
[2017-01-24 08:18] LABS: BANDS 3 % (0-6); EOSINOPHILS 1 % (0-4); MYELOCYTES 1 % (0-0); NEUTROPHIL # MANUAL DIFF 5.3 TH/MM3 (1.8-7.7); POLYS (SEG NEUTROPHILS) 72 % (16-70); WBC DIFF SAMPLE 100
[2017-01-24 08:19] LABS: PLATELET ESTIMATE SMEAR LOW (NORMAL); PLATELET MORPHOLOGY NORMAL (NORMAL); SCAN/DIFF FINAL DIFF MANUAL
[2017-01-24] MEDS ORDERED: ATORVASTATIN 80 MG TAB PO SCH (09:00)
--- NOTE | 2017-01-24 10:06 | HHI.CCPN ---
Subjective Remarks/Hospital Course 61-year-old male. Date of admission 01/21/2017. Past history includes history of multiple CVAs involving the right centrum semiovale and right thalamus with residual left sided weakness, seizure disorder NOS, encephalopathy, gastroesophageal reflux disease, hyperlipidemia, hypertension type 2 diabetes, elevated BMI and chronic anticoagulation due to lower extremity thrombus originally presents to the [facility] ED from [facility] after he reportedly had a witnessed seizure of greater than [address]. [address] Borja, they were called to the facility of [facility] and [facility]. Patient reportedly had a seizure that was witnessed at 30 minutes. Report was the gave him 2 mg of IM lorazepam. When paramedics arrived he was still seizing and they gave him a further dose of 2 mg of lorazepam. Patient became apneic per paramedics en route. When patient arrived he was being [id number] ventilated. An emergent blood gas was obtained which showed a pH of 7.12 and a PCO2 of 97. Decision was made to intubate the patient emergently at [facility] after receiving 20 g, refill 100 mg succinylcholine Laboratories revealed elevated white blood cell count 14,000. Glucose of 173. CT brain revealed old right centrum semiovale right thalamic CVA. Chest x-ray revealed no acute findings. Patient is placed on midazolam drip currently at 10 mg an hour. Patient has a gag. Patient's eyes are currently moving horizontally with a rightward gaze preference. Minimal withdrawal to pain. 01/22 Patient remains sedated with Versed and intubated. EEG yesterday showed slowing , no seizures ( Prelim reading), MRI brain yesterday no acute findings. Afebrile. 01/23: Currently afebrile. Awake and alert and following commands on the ventilator. Remains on ceftriaxone, vancomycin and acyclovir. Tolerating tube feeding at 45 cc an hour. Subjective 01/24: Tmax 99. Currently afebrile. Awake and alert and following commands on the ventilator. Tolerating tube feeding. Positive BM 1. Tolerating PSV trials for 6 hours yesterday. Objective Vital Signs Date Time Temp Pulse Resp B/P (MAP) Pulse Ox O2 Delivery O2 Flow Rate FiO2 01/24/17 08:14 40 01/24/17 08:14 100 01/24/17 08:00 103 01/24/17 08:00 98.9 16 162/81 (108) 01/21/17 03:00 Ventilator Intake and Output 01/24/17 01/24/17 01/25/17 08:00 16:00 00:00 Intake Total 2526.0 ml Output Total 1250 ml Balance 1276.0 ml Result Diagram: 01/24/17 0544 01/24/17 0544 Other Results Microbiology Date/Time Source Procedure Growth Status 01/21/17 02:05 Blood Peripheral Aerobic Blood Culture - Preliminary NO GROWTH IN 2 DAYS Resulted 01/21/17 02:05 Blood Peripheral Anaerobic Blood Culture - Preliminary NO GROWTH IN 2 DAYS Resulted 01/21/17 03:25 Sputum Expectorated Sputum Gram Stain - Final Complete 01/21/17 03:25 Sputum Culture - Final S. Aureus Mrsa Complete 01/20/17 23:30 Urine Clean Catch Urine Culture - Final NO GROWTH IN 48 HOURS. Complete Imaging Last Impressions Chest X-Ray 01/24/17 0600 Signed Impressions: Service Date/Time: Tuesday, January 24, 2017 04:27 - CONCLUSION: Persistent left lower lung infiltrate. Rafa Forrester MD Lower Extremity Ultrasound 01/22/17 0000 Signed Impressions: Service Date/Time: Sunday, January 22, 2017 10:55 - CONCLUSION: 1. The exam is positive for DVT bilaterally. Manish Perez MD Carotid Artery Ultrasound 01/21/17 0000 Signed Impressions: Service Date/Time: Saturday, January 21, 2017 07:48 - CONCLUSION: 1. Minimal atherosclerotic plaque without a hemodynamically significant stenosis involving either carotid artery. 2. Antegrade flow involving both vertebral arteries. Rafa Arnold Jr., MD Brain MRI 01/21/17 0000 Signed Impressions: Service Date/Time: Saturday, January 21, 2017 15:34 - CONCLUSION: 1. No acute intracranial abnormality is identified. 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 2. There is generalized atrophy and chronic white matter changes. No findings are present to indicate recent ischemia. Alistair Baeza MD Head CT 01/20/17 0342 Signed Impressions: Service Date/Time: Saturday, January 21, 2017 01:10 - CONCLUSION: Old stroke in the centrum semiovale region on the right. Questionable small probably chronic stroke in the right thalamus. No acute hemorrhage. Bill Carter MD Objective Remarks GENERAL: This is a 61-year-old male, critically ill currently orotracheally intubated SKIN: Warm and dry. Chronic venous stasis bilateral lower extremities HEAD: Atraumatic. Normocephalic. EYES: Pupils equal and round. No scleral icterus. No injection or drainage. ENT: No nasal bleeding or discharge. Mucous membranes pink and moist. NECK: Trachea midline. No JVD. CARDIOVASCULAR: Regular rate and rhythm. S1, S2. No S4. Without murmur. Midsternal healed scar. RESPIRATORY: Diminished breath sounds throughout. Positive coarse rhonchi appreciated anteriorly posteriorly. Positive and extremity wheezes GASTROINTESTINAL: Abdomen obese, soft. Hypoactive bowel sounds are appreciated. MUSCULOSKELETAL: Extremities with 1+ bilateral lower extremity edema.. NEUROLOGICAL: Eyes are open. Following simple commands. Pupils are about 2 mm bilaterally and minimally reactive. Positive blink. Positive gag. Withdraws to pain bilateral upper and lower extremities A/P Assessment and Plan Neuro/Psych: Seizure disorder Depression History of encephalopathy Prior history of CVA right centrum semiovale, right thalamus Currently on midazolam drip 8 mg an hour for sedation while intubated Goal of RASS 0 Daily sedation vacation 01/21 MRI brain: No acute intracranial abnormality is identified. 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 There is generalized atrophy and chronic white matter changes. CT brain 01/20 revealed remote right centrum semiovale and right thalamic CVA 01/21 EEG: Slowing, right greater than left. No epileptiform activity Carotid Doppler : Minimal atherosclerotic plaque without a hemodynamically significant stenosis involving either carotid artery. Antegrade flow involving both vertebral arteries. Levetiracetam 1000 mg IV twice a day and valproic acid 750 mg IV every 8 hours, Follow-up on valproic acid level in a.m. Patient in the outside world was on levetiracetam 750 mg twice a day and divalproex 750 mg twice a day. UDS negative. Currently resuming citalopram 40 mg daily -Holding clonazepam 0.25 mg at night Currently continuing donepezil 10 mg daily Currently vitamin B12 1000 g by mouth daily Please see infectious disease for antibiotic/antiviral coverage. CV: Hypertension Dyslipidemia Chronic systolic heart failure Patient is currently normal saline at 84 cc an hour. Discontinue today On metoprolol 100 mg PO BID. lisinopril 20 mg by mouth twice a day on hold Okay to resume atorvastatin 80 mg by mouth at bedtime for dyslipidemia with cholestyramine dose 8 g daily for dyslipidemia Echocardiogram - 01/23 - EF 30-35%. Pulmonary arterial pressures 25 mmHg Resp: Acute respiratory failure History of MICHELLE on BiPAP 01/10 at night PRVC 16/600/1/5/40 Ventilator bundle Albuterol/ipratropium aerosols every 4 hours with albuterol aerosols every 2 hours as needed for dyspnea Spontaneous breathing trials when indicated CXR 01/24: Right Lung base infiltrate CPAP trials today GI: Morbid obesity Constipation Continue tube feeds- on Glucerna 1.5@60 ml/hr Lansoprazole 30 mg by tube daily GI prophylaxis Docusate sodium/senna twice a day for bowel regimen Renal/FEN/: Hypernatremia Monitor renal function, electrolytes replacement per protocol. Free water 200 cc every 6 hours Potassium chloride 20 mEq by 21 now. Recheck in a.m. Continue Dexter catheter Endo: Diabetes mellitus Hyperglycemia Holding metformin 1000 mg by mouth twice a day Sliding-scale insulin with Novulin R with Accu-Cheks every 4 hours to maintain euglycemia/low regimen Heme: Leukocytosis Apixaban use History of lower extremity arterial thrombus Thrombocytopenia Monitor CBC. Apixaban 5mg BID is on hold Ultrasound bilateral ultrasound revealed right common femoral vein - SFV/ popliteal thrombus with left common femoral vein to greater saphenous vein thrombus Heparin drip currently at 14,000 units an hour ID: Right base pneumonia MRSA sputum and Nares Currently on ceftriaxone 1 g IV daily and vancomycin Pancultured 01/21 ( Blood, sputum, urine no growth) Currently on acyclovir, ceftriaxone and vancomycin. MSK: PT evaluate and treat Access - Utilize peripheral IV. Central line if indicated Prophylaxis - GI - lansoprazole - DVT -SCDs/ continue to hold Apxaban in case LP is needed will discuss with Neuro. Doppler US LE showed b/l DVT, will place patient on Heparin drip. Level 3 Mayco Soria MD Jan 24, 2017 10:06
[2017-01-24] MEDS ORDERED: FUROSEMIDE 20 MG/2 ML VIAL IV PUSH ONE (10:30)
[2017-01-24] MEDS ORDERED: POTASSIUM CHLORIDE 20 MEQ PWD PACKET NG ONE (10:30)
[2017-01-24] MEDS ORDERED: RESP: RACEPINEPHRINE 2.25% 0.5 ML NEB ONE (14:00)
[2017-01-24 14:29] LABS: BLOOD GAS BASE EXCESS 2.1 mmol/L (-2-2); BLOOD GAS HCO3 27 mmol/L (22-26); BLOOD GAS METHEMOGLOBIN 1.2 % (0-2); BLOOD GAS O2 HGB SATURATION 95 % (90-100); BLOOD GAS OXYGEN CONTENT 18.7 Vol % (12.0-20.0); BLOOD GAS PCO2 45 mmHg (38-42); BLOOD GAS PO2 104 mmHg (61-120); BLOOD GAS TOTAL HGB 13.9 G/DL (12.0-16.0); CRITICAL VALUE NO; FIO2 30 %; OXYGEN DEVICE BIPAP 18IPAP/8EPAP; TEMP CORR TO 98.6
[2017-01-24 14:30] LABS: DRAW SITE RT RADIAL; NUMBER OF ARTERIAL PUNCTURES 1; STAT YES; ULNAR PULSE PRESENT
[2017-01-24] MEDS ORDERED: PHARMACY ORDERED LAB ONE (15:45)
[2017-01-24] MEDS: CITALOPRAM HYDROBROMIDE 40 MG TAB PO SCH (20:56)
[2017-01-24] MEDS: DONEPEZIL HCL 5 MG TAB PO SCH (20:57)
[2017-01-24] MEDS: ATORVASTATIN 80 MG TAB PO SCH (20:57)
[2017-01-25] VITALS (19 sets, daily range): BP systolic 133–159; BP diastolic 63–76; PULSE 60–86; RESP 11–22; TEMP 97.6–99.8; O2SAT 95–100
[2017-01-25] MEDS: RESP: ALBUTEROL 2.5 MG/IPRATROPIUM 0.5 MG NEB (SCH) INH ×7 (00:54→22:58)
[2017-01-25] MEDS: cefTRIAXone INJ 1,000 MG in SODIUM CHLORIDE 0.9% INJ 100 ML IV SCH (01:19)
[2017-01-25] MEDS: CHLORHEXIDINE GLUCONATE 2 % 1 PACK (2 CLOTHS) TOP SCH (03:09)
[2017-01-25] MEDS: ACYCLOVIR INJ 1,000 MG in SODIUM CHLORIDE 0.9% INJ 150 ML IV SCH (03:39)
[2017-01-25] MEDS: INSULIN NovoLIN REGULAR SUPPLEMENTAL SCALE SQ SCH ×5 (03:42→20:13)
[2017-01-25] MEDS: VALPROATE INJ 750 MG in SODIUM CHLORIDE 0.9% INJ 100 ML IV SCH ×3 (05:18→21:56)
--- NOTE | 2017-01-25 06:12 | RADRPT ---
EXAM DATE/TIME: 01/25/2017 03:41 [facility] COMPARISON: CHEST SINGLE AP, January 22, 2017, 3:37. CHEST SINGLE AP, January 24, 2017, 4:27. INDICATIONS : Shortness of breath MEDICAL HISTORY : None. SURGICAL HISTORY : CABG. ENCOUNTER: Subsequent ACUITY: 1 week PAIN SCORE: Non-responsive. LOCATION: Bilateral chest FINDINGS: Decrease in the left retrocardiac infiltrates. The right lung is clear. Stable elevation right rafy diaphragm. Interval removal of ET tube. Stable appearance to the sternal wire sutures. CONCLUSION: Decreasing left lower lung infiltrates. Rafa Forrester MD on January 25, 2017 at 6:09 Board Certified Radiologist. This report was verified electronically.
[2017-01-25 07:41] LABS: AUTOMATED NEUTROPHIL # 4.4 TH/MM3 (1.8-7.7); BASOPHIL % 0.1 % (0.0-2.0); EOSINOPHIL # 0.4 TH/MM3 (0-0.4); EOSINOPHIL % 5.6 % (0.0-4.0); HEMATOCRIT 37.3 % (39.0-51.0); LYMPH % 17.2 % (9.0-44.0); LYMPHOCYTE # 1.1 TH/MM3 (1.0-4.8); MEAN CELL VOLUME 95.4 FL (80.0-100.0); MEAN CORPUSCULAR HEMOGLOBIN 32.3 PG (27.0-34.0); MEAN CORPUSCULAR HGB CONC 33.8 % (32.0-36.0); MONO % 9.1 % (0.0-8.0); PLATELET COUNT 101 TH/MM3 (150-450); RED BLOOD COUNT 3.91 MIL/MM3 (4.50-5.90); WHITE BLOOD COUNT 6.4 TH/MM3 (4.0-11.0)
[2017-01-25 07:46] LABS: HEMO FLAGS AUTO DIFF
[2017-01-25 07:48] LABS: APTT (PATIENT) 47.8 SEC (24.3-30.1)
[2017-01-25] MEDS: CHLORHEXIDINE 0.12% (ORAL KIT) 15 ML CUP MT SCH ×2 (08:00→20:00)
[2017-01-25] MEDS: levETIRAcetam 1000 MG INJ 100 ML IV SCH ×2 (08:03→20:11)
[2017-01-25] MEDS: METOPROLOL TARTRATE 100 MG TAB PO SCH ×2 (08:03→20:13)
[2017-01-25] MEDS: LANSOPRAZOLE SOLUTAB 30 MG TAB G-TUBE SCH (08:03)
[2017-01-25] MEDS: ARTIFICIAL TEARS OPTH SOLN 15 ML BTL EACH EYE SCH ×3 (08:03→17:28)
[2017-01-25] MEDS: MUPIROCIN 2% OINT 1 APPLIC/GM SYR EACH NARE SCH ×2 (08:03→20:11)
[2017-01-25] MEDS: SODIUM CHLORIDE 0.9% FLUSH 10 ML FLUSH IV FLUSH SCH ×2 (08:04→20:11)
[2017-01-25] MEDS: VANCOMYCIN INJ 1,500 MG in SODIUM CHLORID 0.9% 500 ML INJ 500 ML IV SCH ×2 (08:04→20:11)
[2017-01-25] MEDS: DOCUSATE SODIUM 50 MG/SENNA 8.6 MG TAB PO SCH ×2 (08:04→20:13)
[2017-01-25] MEDS: CHOLESTYRAMINE 4 GM PACKET PO SCH (08:04)
[2017-01-25 08:12] LABS: BICARBONATE 29.1 MEQ/L (21.0-32.0); MAGNESIUM 1.8 MG/DL (1.5-2.5); POTASSIUM 3.6 MEQ/L (3.5-5.1)
[2017-01-25] MEDS: FREE WATER G-TUBE SCH (09:20)
[2017-01-25 09:39] LABS: BANDS 17 % (0-6); EOSINOPHILS 7 % (0-4); MYELOCYTES 2 % (0-0); OVALOCYTES 1+ (NORMAL); PLATELET ESTIMATE SMEAR LOW (NORMAL); PLATELET MORPHOLOGY NORMAL (NORMAL); POLYS (SEG NEUTROPHILS) 59 % (16-70); SCAN/DIFF FINAL DIFF MANUAL; WBC DIFF SAMPLE 100
[2017-01-25] MEDS ORDERED: FUROSEMIDE 20 MG/2 ML VIAL IV PUSH ONE (10:00)
--- NOTE | 2017-01-25 10:12 | HHI.CCPN ---
Subjective Remarks/Hospital Course 61-year-old male. Date of admission 01/21/2017. 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 and [facility] after he reportedly had a witnessed seizure of greater than [address]. [address] Borja, they were called to the facility of [facility] and [facility]. Patient reportedly had a seizure that was witnessed at 30 minutes. Report was the gave him 2 mg of IM lorazepam. When paramedics arrived he was still seizing and they gave him a further dose of 2 mg of lorazepam. Patient became apneic per paramedics en route. When patient arrived he was being [id number] ventilated. An emergent blood gas was obtained which showed a pH of 7.12 and a PCO2 of 97. Decision was made to intubate the patient emergently at [facility] after receiving 20 g, refill 100 mg succinylcholine Laboratories revealed elevated white blood cell count 14,000. Glucose of 173. CT brain revealed old right centrum semiovale right thalamic CVA. Chest x-ray revealed no acute findings. Patient is placed on midazolam drip currently at 10 mg an hour. Patient has a gag. Patient's eyes are currently moving horizontally with a rightward gaze preference. Minimal withdrawal to pain. 01/22 Patient remains sedated with Versed and intubated. EEG yesterday showed slowing , no seizures ( Prelim reading), MRI brain yesterday no acute findings. Afebrile. 01/23: Currently afebrile. Awake and alert and following commands on the ventilator. Remains on ceftriaxone, vancomycin and acyclovir. Tolerating tube feeding at 45 cc an hour. 01/24: Tmax 99. Currently afebrile. Awake and alert and following commands on the ventilator. Tolerating tube feeding. Positive BM 1. Tolerating PSV trials for 6 hours yesterday. Subjective 01/25: Extubated yesterday. Transition to CPAP and tolerating well. More awake and alert today. Passed swallow evaluation. Interactive. Objective Vital Signs Date Time Temp Pulse Resp B/P (MAP) Pulse Ox O2 Delivery O2 Flow Rate FiO2 01/25/17 08:10 100 Nasal Cannula 3.00 01/25/17 08:00 97.6 75 22 158/71 (100) 01/25/17 04:17 30 Intake and Output 01/25/17 01/25/17 01/26/17 08:00 16:00 00:00 Intake Total 826 ml Output Total 1175 ml Balance -349 ml Result Diagram: 01/25/17 0641 01/25/17 0641 Other Results Microbiology Date/Time Source Procedure Growth Status 01/21/17 02:05 Blood Peripheral Aerobic Blood Culture - Preliminary NO GROWTH IN 3 DAYS Resulted 01/21/17 02:05 Blood Peripheral Anaerobic Blood Culture - Preliminary NO GROWTH IN 3 DAYS Resulted 01/21/17 03:25 Sputum Expectorated Sputum Gram Stain - Final Complete 01/21/17 03:25 Sputum Culture - Final S. Aureus Mrsa Complete 01/20/17 23:30 Urine Clean Catch Urine Culture - Final NO GROWTH IN 48 HOURS. Complete Imaging Last Impressions Chest X-Ray 01/25/17 0600 Signed Impressions: Service Date/Time: Wednesday, January 25, 2017 03:41 - CONCLUSION: Decreasing left lower lung infiltrates. Rafa Forrester MD Lower Extremity Ultrasound 01/22/17 0000 Signed Impressions: Service Date/Time: Sunday, January 22, 2017 10:55 - CONCLUSION: 1. The exam is positive for DVT bilaterally. Manish Perez MD Carotid Artery Ultrasound 01/21/17 0000 Signed Impressions: Service Date/Time: Saturday, January 21, 2017 07:48 - CONCLUSION: 1. Minimal atherosclerotic plaque without a hemodynamically significant stenosis involving either carotid artery. 2. Antegrade flow involving both vertebral arteries. Rafa Arnold Jr., MD Brain MRI 01/21/17 0000 Signed Impressions: Service Date/Time: Saturday, January 21, 2017 15:34 - CONCLUSION: 1. No acute intracranial abnormality is identified. 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 2. There is generalized atrophy and chronic white matter changes. No findings are present to indicate recent ischemia. Alistair Baeza MD Head CT 01/20/17 [id number] Signed Impressions: Service Date/Time: Saturday, January 21, 2017 01:10 - CONCLUSION: Old stroke in the centrum semiovale region on the right. Questionable small probably chronic stroke in the right thalamus. No acute hemorrhage. Blil Carter MD Objective Remarks GENERAL: This is a 61-year-old male, resting in bed on nasal cannula in no acute distress SKIN: Warm and dry. Chronic venous stasis bilateral lower extremities HEAD: Atraumatic. Normocephalic. EYES: Pupils equal and round. No scleral icterus. No injection or drainage. ENT: No nasal bleeding or discharge. Mucous membranes pink and moist. NECK: Trachea midline. No JVD. CARDIOVASCULAR: Regular rate and rhythm. S1, S2. No S4. Without murmur. Midsternal healed scar. RESPIRATORY: Diminished breath sounds throughout. Few coarse rhonchi appreciated in bases bilaterally. No wheezing GASTROINTESTINAL: Abdomen obese, soft. Hypoactive bowel sounds are appreciated. MUSCULOSKELETAL: Extremities with 1+ bilateral lower extremity edema.. NEUROLOGICAL: Eyes are open. Cranial nerves II through XII appear grossly intact. Pupils are about 2 mm bilaterally and minimally reactive. Strength is equal symmetric. Normal sensation A/P Assessment and Plan Neuro/Psych: Seizure disorder Depression History of encephalopathy Prior history of CVA right centrum semiovale, right thalamus 01/21 MRI brain: No acute intracranial abnormality is identified. 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 There is generalized atrophy and chronic white matter changes. CT brain 01/20 revealed remote right centrum semiovale and right thalamic CVA 01/21 EEG: Slowing, right greater than left. No epileptiform activity Carotid Doppler : Minimal atherosclerotic plaque without a hemodynamically significant stenosis involving either carotid artery. Antegrade flow involving both vertebral arteries. Levetiracetam 1000 mg IV twice a day and valproic acid 750 mg IV every 8 hours, Follow-up on phenytoin level this a.m. is 4.0. We'll recheck in a.m. 01/26 along with upper LEVEL Patient in the outside world was on levetiracetam 750 mg twice a day and divalproex 750 mg twice a day. UDS negative. Currently resuming citalopram 40 mg daily -Holding clonazepam 0.25 mg at night Currently continuing donepezil 10 mg daily Currently vitamin B12 1000 g by mouth daily Please see infectious disease for antibiotic/antiviral coverage. CV: Hypertension Dyslipidemia Chronic systolic heart failure Off all IV fluids On metoprolol 100 mg PO BID. lisinopril 20 mg by mouth twice a day on hold Okay to resume atorvastatin 80 mg by mouth at bedtime for dyslipidemia with cholestyramine dose 8 g daily for dyslipidemia Echocardiogram - 01/23 - EF 30-35%. Pulmonary arterial pressures 25 mmHg Resp: Acute respiratory failure History of MICHELLE on BiPAP 01/10 at night [place] cannula to maintain saturations greater than equal to 90% Incentive spirometry while awake Albuterol/ipratropium aerosols every 4 hours with albuterol aerosols every 2 hours as needed for dyspnea Nocturnal CPAP 01/10 at 30% CXR 01/25: Decreasing lower lobe base infiltrate GI: BMI elevation 32 Constipation Advance diet per speech therapy Protonix 40 mg by mouth daily for GI prophylaxis Docusate sodium/senna twice a day for bowel regimen Renal/FEN/: Hypernatremia Monitor renal function, electrolytes replacement per protocol. Potassium chloride 20 mEq by mouth twice a day 1 day now. Recheck in a.m. Continue Dexter catheter Endo: Diabetes mellitus Hyperglycemia Holding metformin 1000 mg by mouth twice a day Sliding-scale insulin with Novulin R with Accu-Cheks before meals/at bedtime to maintain euglycemia/low regimen Heme: Apixaban use History of lower extremity arterial thrombus Thrombocytopenia Monitor CBC. Apixaban 5mg BID will be resumed today Ultrasound bilateral ultrasound revealed right common femoral vein - SFV/ popliteal thrombus with left common femoral vein to greater saphenous vein thrombus Heparin drip currently at 14,000 units an hour to be discontinued today ID: Right base pneumonia MRSA sputum and Nares Currently on ceftriaxone 1 g IV daily and vancomycin . Discontinue ceftriaxone today Pancultured 01/21 ( Blood, urine no growth) sputum MRSA MSK: PT evaluate and treat Access - Utilize peripheral IV. Central line if indicated Prophylaxis - GI -pantoprazole - DVT -SCDs/ Apixaban Level 2 follow-up Mayco Soria MD Jan 25, 2017 10:12
[2017-01-25] MEDS ORDERED: FOSPHENYTOIN INJ 1,000 MGPE in SODIUM CHLORIDE 0.9% INJ 50 ML IV ONE (10:30)
[2017-01-25] MEDS: MAGNESIUM SULFATE 1 GM PREMIX 100 ML IV SCH ×2 (10:37→12:06)
[2017-01-25] MEDS: POTASSIUM CHLORIDE 20 MEQ CONTROLLED RELEASE TAB PO SCH ×2 (10:37→20:13)
[2017-01-25] MEDS: CITALOPRAM HYDROBROMIDE 40 MG TAB PO SCH (20:12)
[2017-01-25] MEDS: DONEPEZIL HCL 5 MG TAB PO SCH (20:12)
[2017-01-25] MEDS: APIXABAN 5 MG TABLET PO SCH (20:12)
[2017-01-25] MEDS: ATORVASTATIN 80 MG TAB PO SCH (20:13)
[2017-01-26] VITALS (14 sets, daily range): BP systolic 148–165; BP diastolic 68–76; PULSE 57–85; RESP 14–24; TEMP 98.4–99.2; O2SAT 97–100
[2017-01-26] MEDS: CHLORHEXIDINE GLUCONATE 2 % 1 PACK (2 CLOTHS) TOP SCH (04:00)
[2017-01-26] MEDS: RESP: ALBUTEROL 2.5 MG/IPRATROPIUM 0.5 MG NEB (SCH) INH ×5 (04:25→19:52)
[2017-01-26 05:38] LABS: ANION GAP 7 MEQ/L (5-15); AST (GOT) 22 U/L (15-37); BICARBONATE 27.2 MEQ/L (21.0-32.0); CHLORIDE 109 MEQ/L (98-107); GLOMERULAR FILTRATION RATE 110 ML/MIN (>89); POTASSIUM 4.2 MEQ/L (3.5-5.1); SODIUM (NA) 143 MEQ/L (136-145)
[2017-01-26 05:39] LABS: ALT (GPT) 19 U/L (12-78)
[2017-01-26 05:41] LABS: ALKALINE PHOSPHATASE 47 U/L (45-117); TOTAL BILIRUBIN ADULT 0.5 MG/DL (0.2-1.0)
[2017-01-26 05:53] LABS: BLOOD UREA NITROGEN 12 MG/DL (7-18)
[2017-01-26] MEDS: VALPROATE INJ 750 MG in SODIUM CHLORIDE 0.9% INJ 100 ML IV SCH ×3 (05:56→22:12)
[2017-01-26] MEDS: hydrALAZINE HCL 20 MG/ML VIAL IV PUSH PRN (07:11)
[2017-01-26] MEDS: INSULIN NovoLIN REGULAR SUPPLEMENTAL SCALE SQ SCH ×4 (08:00→21:00)
[2017-01-26] MEDS: CHLORHEXIDINE 0.12% (ORAL KIT) 15 ML CUP MT SCH ×2 (08:00→20:00)
[2017-01-26] MEDS: ARTIFICIAL TEARS OPTH SOLN 15 ML BTL EACH EYE SCH ×3 (08:52→17:45)
[2017-01-26] MEDS: MUPIROCIN 2% OINT 1 APPLIC/GM SYR EACH NARE SCH ×2 (08:54→21:00)
[2017-01-26] MEDS: CHOLESTYRAMINE 4 GM PACKET PO SCH (08:54)
[2017-01-26] MEDS: APIXABAN 5 MG TABLET PO SCH ×2 (08:54→22:11)
[2017-01-26] MEDS: PANTOPRAZOLE SOD 40 MG DELAYED RELEASE TAB PO SCH (08:54)
[2017-01-26] MEDS: METOPROLOL TARTRATE 100 MG TAB PO SCH ×2 (08:54→22:11)
[2017-01-26] MEDS: DOCUSATE SODIUM 50 MG/SENNA 8.6 MG TAB PO SCH ×2 (08:54→22:11)
[2017-01-26] MEDS: SODIUM CHLORIDE 0.9% FLUSH 10 ML FLUSH IV FLUSH SCH ×2 (08:55→22:13)
[2017-01-26] MEDS: levETIRAcetam 1000 MG INJ 100 ML IV SCH ×2 (08:55→22:12)
[2017-01-26] MEDS: VANCOMYCIN INJ 1,500 MG in SODIUM CHLORID 0.9% 500 ML INJ 500 ML IV SCH ×2 (09:10→22:13)
[2017-01-26 09:41] LABS: AUTOMATED NEUTROPHIL # 4.4 TH/MM3 (1.8-7.7); BASOPHIL % 0.3 % (0.0-2.0); EOSINOPHIL # 0.3 TH/MM3 (0-0.4); EOSINOPHIL % 4.2 % (0.0-4.0); HEMO FLAGS AUTO DIFF; LYMPH % 19.4 % (9.0-44.0); LYMPHOCYTE # 1.3 TH/MM3 (1.0-4.8); MEAN CELL VOLUME 95.3 FL (80.0-100.0); MEAN CORPUSCULAR HEMOGLOBIN 32.4 PG (27.0-34.0); MEAN CORPUSCULAR HGB CONC 34.1 % (32.0-36.0); MONO % 10.2 % (0.0-8.0); NEUT % 65.9 % (16.0-70.0); PLATELET COUNT 95 TH/MM3 (150-450); RED BLOOD COUNT 4.41 MIL/MM3 (4.50-5.90); RED CELL DISTRIBUTION WIDTH 14.4 % (11.6-17.2); WHITE BLOOD COUNT 6.6 TH/MM3 (4.0-11.0)
[2017-01-26 10:31] LABS: BANDS 1 % (0-6); EOSINOPHILS 3 % (0-4); METAMYELOCYTES 2 % (0-1); MYELOCYTES 1 % (0-0); NEUTROPHIL # MANUAL DIFF 4.2 TH/MM3 (1.8-7.7); POLYS (SEG NEUTROPHILS) 59 % (16-70); WBC DIFF SAMPLE 100
[2017-01-26 10:32] LABS: PLATELET ESTIMATE SMEAR LOW (NORMAL); PLATELET MORPHOLOGY NORMAL (NORMAL); SCAN/DIFF FINAL DIFF MANUAL
--- NOTE | 2017-01-26 15:08 | HHI.CCPN ---
Subjective Remarks/Hospital Course 61-year-old male. Date of admission 01/21/2017. 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 [address] Borja, they were called to the facility of [facility] and [facility]. Patient reportedly had a seizure that was witnessed at 30 minutes. Report was the gave him 2 mg of IM lorazepam. When paramedics arrived he was still seizing and they gave him a further dose of 2 mg of lorazepam. Patient became apneic per paramedics en route. When patient arrived he was being [id number] ventilated. An emergent blood gas was obtained which showed a pH of 7.12 and a PCO2 of 97. Decision was made to intubate the patient emergently at [facility] after receiving 20 g, refill 100 mg succinylcholine Laboratories revealed elevated white blood cell count 14,000. Glucose of 173. CT brain revealed old right centrum semiovale right thalamic CVA. Chest x-ray revealed no acute findings. Patient is placed on midazolam drip currently at 10 mg an hour. Patient has a gag. Patient's eyes are currently moving horizontally with a rightward gaze preference. Minimal withdrawal to pain. 01/22 Patient remains sedated with Versed and intubated. EEG yesterday showed slowing , no seizures ( Prelim reading), MRI brain yesterday no acute findings. Afebrile. 01/23: Currently afebrile. Awake and alert and following commands on the ventilator. Remains on ceftriaxone, vancomycin and acyclovir. Tolerating tube feeding at 45 cc an hour. 01/24: Tmax 99. Currently afebrile. Awake and alert and following commands on the ventilator. Tolerating tube feeding. Positive BM 1. Tolerating PSV trials for 6 hours yesterday. Subjective 01/25: Extubated yesterday. Transition to CPAP and tolerating well. More awake and alert today. Passed swallow evaluation. Interactive. 01/26: No acute events overnight. Patient tolerating diet, currently on nasal cannula 2 L/m. Patient voices no complaints. Objective Vital Signs Date Time Temp Pulse Resp B/P (MAP) Pulse Ox O2 Delivery O2 Flow Rate FiO2 01/26/17 14:00 69 01/26/17 12:00 99.1 24 157/76 (103) 99 01/26/17 08:08 Nasal Cannula 3.00 01/26/17 04:45 30 Intake and Output 01/26/17 01/26/17 01/27/17 08:00 16:00 00:00 Intake Total 750 ml Output Total 500 ml Balance 250 ml Result Diagram: 01/26/17 0928 01/26/17 0438 Imaging Last Impressions Chest X-Ray 01/25/17 0600 Signed Impressions: Service Date/Time: Wednesday, January 25, 2017 03:41 - CONCLUSION: Decreasing left lower lung infiltrates. Rafa Forrester MD Lower Extremity Ultrasound 01/22/17 0000 Signed Impressions: Service Date/Time: Sunday, January 22, 2017 10:55 - CONCLUSION: 1. The exam is positive for DVT bilaterally. Manish Perez MD Carotid Artery Ultrasound 01/21/17 0000 Signed Impressions: Service Date/Time: Saturday, January 21, 2017 07:48 - CONCLUSION: 1. Minimal atherosclerotic plaque without a hemodynamically significant stenosis involving either carotid artery. 2. Antegrade flow involving both vertebral arteries. Rafa Arnold Jr., MD Brain MRI 01/21/17 0000 Signed Impressions: Service Date/Time: Saturday, January 21, 2017 15:34 - CONCLUSION: 1. No acute intracranial abnormality is identified. 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 2. There is generalized atrophy and chronic white matter changes. No findings are present to indicate recent ischemia. Alistair Baeza MD Head CT 01/20/17 [id number] Signed Impressions: Service Date/Time: Saturday, January 21, 2017 01:10 - CONCLUSION: Old stroke in the centrum semiovale region on the right. Questionable small probably chronic stroke in the right thalamus. No acute hemorrhage. Bill Carter MD Objective Remarks GENERAL: This is a 61-year-old male, resting in bed on nasal cannula in no acute distress SKIN: Warm and dry. Chronic venous stasis bilateral lower extremities HEAD: Atraumatic. Normocephalic. EYES: Pupils equal and round. No scleral icterus. No injection or drainage. ENT: No nasal bleeding or discharge. Mucous membranes pink and moist. NECK: Trachea midline. No JVD. CARDIOVASCULAR: Regular rate and rhythm. S1, S2. No S4. Without murmur. Midsternal healed scar. RESPIRATORY: Diminished breath sounds throughout. Few coarse rhonchi appreciated in bases bilaterally. No wheezing GASTROINTESTINAL: Abdomen obese, soft. Hypoactive bowel sounds are appreciated. MUSCULOSKELETAL: Extremities with 2+ bilateral lower extremity edema.. NEUROLOGICAL: Eyes are open. Cranial nerves II through XII appear grossly intact. Pupils are about 2 mm bilaterally and minimally reactive. Strength is equal symmetric. Normal sensation A/P Assessment and Plan Neuro/Psych: Seizure disorder Depression History of encephalopathy Prior history of CVA right centrum semiovale, right thalamus 01/21 MRI brain: No acute intracranial abnormality is identified. 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 There is generalized atrophy and chronic white matter changes. CT brain 01/20 revealed remote right centrum semiovale and right thalamic CVA 01/21 EEG: Slowing, right greater than left. No epileptiform activity Carotid Doppler : Minimal atherosclerotic plaque without a hemodynamically significant stenosis involving either carotid artery. Antegrade flow involving both vertebral arteries. Levetiracetam 1000 mg IV twice a day and valproic acid 750 mg IV every 8 hours, Follow-up on phenytoin level this a.m. is 4.0. We'll recheck in a.m. 01/26 along with upper LEVEL Patient in the outside world was on levetiracetam 750 mg twice a day and divalproex 750 mg twice a day. UDS negative. Currently continued citalopram 40 mg daily -Holding clonazepam 0.25 mg at night Currently continuing donepezil 10 mg daily Currently vitamin B12 1000 g by mouth daily Please see infectious disease for antibiotic/antiviral coverage. CV: Hypertension Dyslipidemia Chronic systolic heart failure Saline locked IV fluids On metoprolol 100 mg PO BID. lisinopril 20 mg by mouth twice a day on hold Okay to resume atorvastatin 80 mg by mouth at bedtime for dyslipidemia with cholestyramine dose 8 g daily for dyslipidemia Echocardiogram - 01/23 - EF 30-35%. Pulmonary arterial pressures 25 mmHg Resp: Acute respiratory failure-resolved History of MICHELLE on BiPAP 01/10 at night Nasal cannula to maintain saturations greater than equal to 90% Incentive spirometry while awake Albuterol/ipratropium aerosols every 4 hours with albuterol aerosols every 2 hours as needed for dyspnea Nocturnal CPAP 01/10 at 30% CXR 01/25: Decreasing lower lobe base infiltrate GI: BMI elevation 32 Constipation Advance diet per speech therapy Protonix 40 mg by mouth daily for GI prophylaxis Docusate sodium/senna twice a day for bowel regimen Renal/FEN/: Hypernatremia Monitor renal function, electrolytes replacement per protocol. Potassium chloride 20 mEq by mouth twice a day 1 day now. Recheck in a.m. Continue Dexter catheter Endo: Diabetes mellitus Hyperglycemia Holding metformin 1000 mg by mouth twice a day Sliding-scale insulin with Novulin R with Accu-Cheks before meals/at bedtime to maintain euglycemia/low regimen Heme: Apixaban use History of lower extremity arterial thrombus Thrombocytopenia Monitor CBC. Apixaban 5mg BID will be resumed today Ultrasound bilateral ultrasound revealed right common femoral vein - SFV/ popliteal thrombus with left common femoral vein to greater saphenous vein thrombus Heparin drip currently at 14,000 units an hour to be discontinued 01/15 ID: Right base pneumonia MRSA sputum and Nares Currently on ceftriaxone 1 g IV daily and vancomycin . Discontinue ceftriaxone today Pancultured 01/21 ( Blood, urine no growth) sputum MRSA MSK: PT evaluate and treat Access - Utilize peripheral IV. Central line if indicated Prophylaxis - GI -pantoprazole - DVT -SCDs/ Apixaban Level 2 follow-up plan transfer to [facility] Essie Cook MD Jan 26, 2017 15:08
[2017-01-26] MEDS: DONEPEZIL HCL 5 MG TAB PO SCH (22:10)
[2017-01-26] MEDS: ATORVASTATIN 80 MG TAB PO SCH (22:11)
[2017-01-26] MEDS: CITALOPRAM HYDROBROMIDE 40 MG TAB PO SCH (22:11)
[2017-01-27] VITALS: BP 145/65; PULSE 80; RESP 19; TEMP 97.6; O2SAT 99
[2017-01-27] MEDS: RESP: ALBUTEROL 2.5 MG/IPRATROPIUM 0.5 MG NEB (SCH) INH ×4 (00:19→12:27)
[2017-01-27] MEDS: CHLORHEXIDINE GLUCONATE 2 % 1 PACK (2 CLOTHS) TOP SCH (04:00)
[2017-01-27 04:30] VITALS: BP 150/66; PULSE 78; RESP 19; TEMP 98.8; O2SAT 98
[2017-01-27] MEDS: VALPROATE INJ 750 MG in SODIUM CHLORIDE 0.9% INJ 100 ML IV SCH (05:24)
[2017-01-27] MEDS: INSULIN NovoLIN REGULAR SUPPLEMENTAL SCALE SQ SCH ×2 (08:00→11:58)
[2017-01-27] MEDS: CHLORHEXIDINE 0.12% (ORAL KIT) 15 ML CUP MT SCH (08:00)
[2017-01-27 08:30] VITALS: PULSE 78
[2017-01-27 08:34] VITALS: BP 168/78; PULSE 76; RESP 20; TEMP 98.1; O2SAT 95
[2017-01-27 08:35] VITALS: O2SAT 96
[2017-01-27] MEDS ORDERED: PHARMACY ORDERED LAB ONE (08:45)
[2017-01-27] MEDS: DOCUSATE SODIUM 50 MG/SENNA 8.6 MG TAB PO SCH (09:00)
[2017-01-27] MEDS: ARTIFICIAL TEARS OPTH SOLN 15 ML BTL EACH EYE SCH ×2 (09:00→13:00)
[2017-01-27] MEDS: CHOLESTYRAMINE 4 GM PACKET PO SCH (09:00)
[2017-01-27] MEDS: MUPIROCIN 2% OINT 1 APPLIC/GM SYR EACH NARE SCH (09:31)
[2017-01-27] MEDS: METOPROLOL TARTRATE 100 MG TAB PO SCH (09:31)
[2017-01-27] MEDS: APIXABAN 5 MG TABLET PO SCH (09:32)
[2017-01-27] MEDS: PANTOPRAZOLE SOD 40 MG DELAYED RELEASE TAB PO SCH (09:32)
[2017-01-27] MEDS: SODIUM CHLORIDE 0.9% FLUSH 10 ML FLUSH IV FLUSH SCH (09:33)
[2017-01-27] MEDS: levETIRAcetam 1000 MG INJ 100 ML IV SCH (10:05)
[2017-01-27 12:14] VITALS: BP 148/70; PULSE 68; RESP 20; TEMP 97.9; O2SAT 95
[2017-01-27] MEDS ORDERED: KEPP10002 PO (12:30)
[2017-01-27] MEDS ORDERED: LISI10TA3 PO (12:30)
[2017-01-27] MEDS ORDERED: VALP250C PO (12:30)
[2017-01-27] MEDS ORDERED: NOVOLOGP2 SQ (12:30)
[2017-01-27] MEDS ORDERED: LINE1TAB PO (12:30)
[2017-01-27] MEDS ORDERED: CLON0.5T PO (13:57)
[2017-01-27] MEDS ORDERED: VALPROIC ACID 250 MG CAP PO SCH (14:00)
[2017-01-27] MEDS ORDERED: RESP: ALBUTEROL 2.5 MG/IPRATROPIUM 0.5 MG NEB (SCH) INH (16:00)
--- NOTE | 2017-01-27 20:49 | HHI.DS ---
Discharge Summary Admission Date Jan 21, 2017 at 01:43 Discharge Date: Jan 27, 2017 Admitting Diagnosis Prolonged seizure, hypercarbia, uti, (1) Acute respiratory failure ICD Code: J96.00 - Acute respiratory failure, unspecified whether with hypoxia or hypercapnia Diagnosis: Principal Status: Acute (2) Constipation ICD Code: K59.00 - Constipation, unspecified Diagnosis: Principal (3) Dementia ICD Code: F03.90 - Unspecified dementia without behavioral disturbance Diagnosis: Secondary Status: Chronic (4) Obstructive sleep apnea ICD Code: G47.33 - Obstructive sleep apnea (adult) (pediatric) Diagnosis: Principal (5) Dyslipidemia ICD Code: E78.5 - Hyperlipidemia, unspecified Diagnosis: Secondary (6) Hx of thrombosis of lower extremity ICD Code: Z86.718 - Personal history of other venous thrombosis and embolism Diagnosis: Secondary (7) Cystitis ICD Code: N30.90 - Cystitis, unspecified without hematuria Diagnosis: Secondary (8) Hyperglycemia ICD Code: R73.9 - Hyperglycemia, unspecified Diagnosis: Secondary (9) Leukocytosis ICD Code: D72.829 - Elevated white blood cell count, unspecified Diagnosis: Principal (10) Hypertension ICD Code: I10 - Essential (primary) hypertension Diagnosis: Secondary (11) BMI 37.0-37.9, adult ICD Code: Z68.37 - Body mass index (BMI) 37.0-37.9, adult Diagnosis: Principal (12) Depression ICD Code: F32.9 - Major depressive disorder, single episode, unspecified Diagnosis: Secondary (13) Chronic anticoagulation ICD Code: Z79.01 - assisted (current) use of anticoagulants Diagnosis: Principal (14) Seizure disorder ICD Code: G40.909 - Epilepsy, unspecified, not intractable, without status epilepticus Diagnosis: Principal Status: Acute (15) SIRS (systemic inflammatory response syndrome) ICD Code: R65.10 - Systemic inflammatory response syndrome (SIRS) of non- infectious origin without acute organ dysfunction Diagnosis: Principal Procedures Echo 01/23/2017 Normal left ventricular size. Mild concentric left ventricular hypertrophy. The left ventricular systolic function is severely reduced with an estimated ejection fraction in the range of 30-35%. Trace mitral valve regurgitation. There is trace tricuspid valve regurgitation. The estimated pulmonary arterial pressure is 25 mmHg. Extubation 01/24/2017. Brief History - From Admission 61-year-old male. Date of admission 01/21/2017. 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 [address] Borja, they were called to the facility of [facility]. Patient reportedly had a seizure that was witnessed at 30 minutes. Report was the gave him 2 mg of IM lorazepam. When paramedics arrived he was still seizing and they gave him a further dose of 2 mg of lorazepam. Patient became apneic per paramedics en route. When patient arrived he was being [id number] ventilated. An emergent blood gas was obtained which showed a pH of 7.12 and a PCO2 of 97. Decision was made to intubate the patient emergently at [facility] after receiving 20 g, refill 100 mg succinylcholine Laboratories revealed elevated white blood cell count 14,000. Glucose of 173. CT brain revealed old right centrum semiovale right thalamic CVA. Chest x-ray revealed no acute findings. Patient is placed on midazolam drip currently at 10 mg an hour. Patient has a gag. Patient's eyes are currently moving horizontally with a rightward gaze preference. Minimal withdrawal to pain. CBC/BMP: 01/26/17 0928 01/27/17 0000 Significant Findings Laboratory Tests Test 01/25/17 06:41 01/26/17 04:38 01/26/17 09:28 01/27/17 00:00 Red Blood Count 3.91 MIL/MM3 (4.50-5.90) 4.41 MIL/MM3 (4.50-5.90) Hemoglobin 12.6 GM/DL (13.0-17.0) Hematocrit 37.3 % (39.0-51.0) Platelet Count 101 TH/MM3 (150-450) 95 TH/MM3 (150-450) Monocytes (%) (Auto) 9.1 % (0.0-8.0) 10.2 % (0.0-8.0) Eosinophils (%) (Auto) 5.6 % (0.0-4.0) 4.2 % (0.0-4.0) Band Neutrophils % 17 % (0-6) Eosinophils % 7 % (0-4) Myelocytes 2 % (0-0) 1 % (0-0) Platelet Estimate LOW (NORMAL) LOW (NORMAL) Ovalocytes 1+ (NORMAL) Activated Partial Thromboplast Time 47.8 SEC (24.3-30.1) Random Glucose 137 MG/DL (74-106) 107 MG/DL (74-106) Sodium Level 149 MEQ/L (136-145) Chloride Level 113 MEQ/L (98-107) 109 MEQ/L (98-107) Phenytoin (Dilantin) Level 4.0 MCG/ML (10.0-20.0) 7.3 MCG/ML (10.0-20.0) 4.2 MCG/ML (10.0-20.0) Total Protein 5.3 GM/DL (6.4-8.2) Albumin 2.3 GM/DL (3.4-5.0) Calcium Level 8.1 MG/DL (8.5-10.1) Monocytes % 15 % (0-8) Metamyelocytes 2 % (0-1) Test 01/27/17 13:35 Vancomycin Level Trough 20.2 MCG/ML (5.0-10.0) Imaging Last Impressions Chest X-Ray 01/25/17 0600 Signed Impressions: Service Date/Time: Wednesday, January 25, 2017 03:41 - CONCLUSION: Decreasing left lower lung infiltrates. Rafa Forrester MD Lower Extremity Ultrasound 01/22/17 0000 Signed Impressions: Service Date/Time: Sunday, January 22, 2017 10:55 - CONCLUSION: 1. The exam is positive for DVT bilaterally. Manihs Perez MD Carotid Artery Ultrasound 01/21/17 0000 Signed Impressions: Service Date/Time: Saturday, January 21, 2017 07:48 - CONCLUSION: 1. Minimal atherosclerotic plaque without a hemodynamically significant stenosis involving either carotid artery. 2. Antegrade flow involving both vertebral arteries. Rafa Arnold Jr., MD Brain MRI 01/21/17 0000 Signed Impressions: Service Date/Time: Saturday, January 21, 2017 15:34 - CONCLUSION: 1. No acute intracranial abnormality is identified. 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 2. There is generalized atrophy and chronic white matter changes. No findings are present to indicate recent ischemia. Alistair Baeza MD Head CT 01/20/17 2303 Signed Impressions: Service Date/Time: Saturday, January 21, 2017 01:10 - CONCLUSION: Old stroke in the centrum semiovale region on the right. Questionable small probably chronic stroke in the right thalamus. No acute hemorrhage. Bill Carter MD PE at Discharge GENERAL: Alert, Oriented x 3 NAD. SKIN: Warm and dry. HEAD: Normocephalic. EYES: No scleral icterus. No injection or drainage. NECK: Supple, trachea midline. No JVD or lymphadenopathy. CARDIOVASCULAR: Regular rate and rhythm without murmurs, gallops, or rubs. RESPIRATORY: Breath sounds equal bilaterally. No accessory muscle use. GASTROINTESTINAL: Abdomen soft, non-tender, nondistended. MUSCULOSKELETAL: No cyanosis, or edema. BACK: Nontender without obvious deformity. No CVA tenderness. Pt update on day of discharge Follow up for seizure disorder. Patient is doing well. No acute concerns. He does not want to participate with physical activities today. He wants to go to SNF today if possible. No fever, chills. Hospital Course ICU course is outlined below: 61-year-old male. Date of admission 01/21/2017. 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 [address] Borja, they were called to the facility of [facility] and [facility]. Patient reportedly had a seizure that was witnessed at 30 minutes. Report was the gave him 2 mg of IM lorazepam. When paramedics arrived he was still seizing and they gave him a further dose of 2 mg of lorazepam. Patient became apneic per paramedics en route. When patient arrived he was being [id number] ventilated. An emergent blood gas was obtained which showed a pH of 7.12 and a PCO2 of 97. Decision was made to intubate the patient emergently at [facility] after receiving 20 g, refill 100 mg succinylcholine Laboratories revealed elevated white blood cell count 14,000. Glucose of 173. CT brain revealed old right centrum semiovale right thalamic CVA. Chest x-ray revealed no acute findings. Patient is placed on midazolam drip currently at 10 mg an hour. Patient has a gag. Patient's eyes are currently moving horizontally with a rightward gaze preference. Minimal withdrawal to pain. 01/22 Patient remains sedated with Versed and intubated. EEG yesterday showed slowing , no seizures ( Prelim reading), MRI brain yesterday no acute findings. Afebrile. 01/23: Currently afebrile. Awake and alert and following commands on the ventilator. Remains on ceftriaxone, vancomycin and acyclovir. Tolerating tube feeding at 45 cc an hour. 01/24: Tmax 99. Currently afebrile. Awake and alert and following commands on the ventilator. Tolerating tube feeding. Positive BM 1. Tolerating PSV trials for 6 hours yesterday. 01/25: Extubated yesterday. Transition to CPAP and tolerating well. More awake and alert today. Passed swallow evaluation. Interactive. 01/26: No acute events overnight. Patient tolerating diet, currently on nasal cannula 2 L/m. Patient voices no complaints. 01/27/2017: We switched patient's IV anti-epileptics to PO forms after discussing with pharmacy - Keppra 1000mg BID and Valproic acid 750mg TID. We also switched IV vancomycin to Linezolid 600mg BID for 6 days to complete treatment of pneumonia with sputum culture positive for MRSA. Patient is already on Metoprolol. Due to EF 30-35%, we also started patient on Lisinopril 10mg Qday. All questions answered. Patient was discharged to SNF. Pt Condition on Discharge: Good Discharge Disposition: Discharge to SNF Discharge Time: > 30 minutes Discharge Instructions DIET: Follow Instructions for: Diabetic Diet Activities you can perform: Regular-No Restrictions Follow up Referrals: SNF/[facility]/ with [facility] New Medications: Clonazepam (Clonazepam) 0.5 Mg Tab 0.5 MG PO BID, #20 TAB 0 Refills Insulin Aspart Inj (Novolog Inj) 1,000 Unit/10 Ml Vial 1-9 UNITS SQ ACHS for Blood Sugar Management, #10 ML 0 Refills Max dose at bedtime:( )units; sugars less than 70,(0)units; sugars 150-199,(1) unit; sugars 200-249,(3) units; sugars 250-299,(5) units; sugars 300-349,(7) units; sugars greater than 349,(9) units Levetiracetam (Keppra) 1,000 Mg Tab 1000 MG PO BID for Control Seizures, #60 TAB 0 Refills Linezolid (Linezolid) 600 Mg Tab 600 MG PO Q12H for Infection, #12 TAB 0 Refills Lisinopril (Lisinopril) 10 Mg Tab 10 MG PO DAILY, #30 TAB 0 Refills Valproic Acid (Valproic Acid) 250 Mg Cap 750 MG PO TID for Seizure Control, #90 CAP 0 Refills Continued Medications: Acetaminophen (Tylenol) 325 Mg Tab 650 MG PO Q4H PRN for FEVER, TAB 0 Refills Apixaban (Eliquis) 5 Mg Tab 5 MG PO BID for Blood Clot Prevention, #60 TAB 0 Refills Atorvastatin (Atorvastatin) 80 Mg Tab 80 MG PO HS for Cholesterol Management, #30 TAB 0 Refills Cholecalciferol (Vitamin D3) 50,000 Unit Cap 45554 UNITS PO Q7D for Nutritional Supplement, #30 CAP 0 Refills Cholestyramine (Questran) 4 Gm/Pkt Powd 8 GM PO DAILY for Dyslipidemia, #1 BOX 0 Refills 1 packet contains 4gm of cholestyramine. Citalopram (Citalopram) 40 Mg Tab 40 MG PO HS for Control Depression, #30 TAB 0 Refills Cyanocobalamin (B12) 1,000 Mcg Tab DAILY Donepezil (Donepezil) 10 Mg Tab 10 MG PO HS for Dementia, #30 TAB 0 Refills Ipratropium-Albuterol Neb (Duoneb) 0.5-2.5 Mg/3 Ml Neb 1 NEBULE INH Q8HR NEB for Breathing Treatment, #90 NEBULE 0 Refills Metformin (Metformin) 1,000 Mg Tab 1000 MG PO BIDPC for Blood Sugar Management, #60 TAB 0 Refills Metoprolol Tartrate (Metoprolol Tartrate) 100 Mg Tab 100 MG PO BID, #60 TAB 0 Refills Multiple Vitamin (Multi-Vitamin Daily) 1 Tab Tab 1 TAB PO DAILY for Nutritional Supplement, TAB 0 Refills Polyethylene Glycol 3350 Powder (Miralax Powder) 17 Gm Powd 17 GM PO DAILY for Constipation, #1 CAN 0 Refills Mix and dissolve one measuring cap-ful (17 grams) in water or juice. Discontinued Medications: Clonazepam (Klonopin) 0.5 Mg Tab 0.25 MG PO HS, #60 TAB 0 Refills Divalproex ER (Divalproex ER) 250 Mg Cassidy 750 MG PO BID for Control Seizures, #90 TAB 0 Refills Levetiracetam (Levetiracetam) 750 Mg Tab 750 MG PO BID for Control Seizures, #60 TAB 0 Refills Lisinopril (Lisinopril) 20 Mg Tab 20 MG PO DAILY, #30 TAB 0 Refills Loperamide (Loperamide) 2 Mg Cap 2 MG PO DIRECTED PRN for DIARRHEA, CAP 0 Refills One capsule after each loose stool. Not to exceed 8 capsules per day. Magnesium (Magnesium) 400 Mg Tab 400 MG PO DAILY for Nutritional Supplement, TAB 0 Refills Sennosides (Senna-Tabs) 8.6 Mg Tab 17.2 MG PO DAILY for Constipation, #30 TAB 0 Refills Gifty Cazares DO Jan 27, 2017 20:49
[2017-01-27] MEDS ORDERED: LINEZOLID 600 MG TAB PO SCH (21:00)
[2017-01-27] MEDS ORDERED: levETIRAcetam 500 MG TAB PO SCH (21:00)
== END 2017-01-27 16:19 | DRG 100 ==
LOC: NEPE 22:47 → EDBD 01-21 01:43 → NEDA 01-21 01:43 → HIMW 01-21 04:00 → HIMN 01-22 09:18 → N05B 01-26 16:26
PROVIDERS: ADMIT Internal Medicine Critical Care Medicine; ATTEND Hospitalist
PROC: 0BH17EZ Insertion of Endotracheal Airway into Trachea, Via Natural or Artificial Opening (ICD-10-PCS; principal; 2017-01-20)
PROC: 5A1945Z Respiratory Ventilation, 24-96 Consecutive Hours (ICD-10-PCS; 2017-01-20)
DX: G40.909 Epilepsy, unspecified, not intractable, without status epilepticus (principal); J15.212 Pneumonia due to Methicillin resistant Staphylococcus aureus; J96.01 Acute respiratory failure with hypoxia; J96.02 Acute respiratory failure with hypercapnia; I11.0 Hypertensive heart disease with heart failure; D69.6 Thrombocytopenia, unspecified; E87.0 Hyperosmolality and hypernatremia; R65.10 Systemic inflammatory response syndrome (SIRS) of non-infectious origin without acute organ dysfunction; I50.22 Chronic systolic (congestive) heart failure; I69.354 Hemiplegia and hemiparesis following cerebral infarction affecting left non-dominant side; I82.513 Chronic embolism and thrombosis of femoral vein, bilateral; I82.592 Chronic embolism and thrombosis of other specified deep vein of left lower extremity; E11.65 Type 2 diabetes mellitus with hyperglycemia; F03.90 Unspecified dementia, unspecified severity, without behavioral disturbance, psychotic disturbance, mood disturbance, and anxiety; K21.9 Gastro-esophageal reflux disease without esophagitis; E66.01 Morbid (severe) obesity due to excess calories; E78.5 Hyperlipidemia, unspecified; G47.33 Obstructive sleep apnea (adult) (pediatric); K59.00 Constipation, unspecified; Z68.37 Body mass index [BMI] 37.0-37.9, adult; F32.9 Major depressive disorder, single episode, unspecified; I87.8 Other specified disorders of veins; I87.2 Venous insufficiency (chronic) (peripheral); N30.90 Cystitis, unspecified without hematuria; Z79.84 Long term (current) use of oral hypoglycemic drugs; Z79.02 Long term (current) use of antithrombotics/antiplatelets; Z86.718 Personal history of other venous thrombosis and embolism; Z88.1 Allergy status to other antibiotic agents
CPT/HCPCS: 31500; 36600; 43753; 51702; 70450; 70553; 71010; 80048; 80053; 80061; 80164; 80177; 80185; 80202; 80307; 81001; 82140; 82550; 82552; 82565; 82607; 82805; 82947; 82948; 83605; 83690; 83735; 84100; 84443; 84484; 85007; 85025; 85027; 85384; 85610; 85652; 85730; 86403; 86788; 87040; 87070; 87086; 87147; 87186; 87205; 87641; 93005; 93306; 93880; 93970; 94002; 94003; 94150; 94640; 94664; 95819; 96365; A9579; J0131; J0133; J0330; J0360; J0696; J1644; J1940; J1953; J2250; J3370; J3475; J3480; J7030; J7040; J7050; Q2009